=== PATIENT | female | born 1940 | race Caucasian/White ===

== ENCOUNTER 2019-07-31 10:04 | Outpatient (CLI) | payer MEDICARE, SELFPAY ==
[2019-07-31 10:20] LABS: Hemoglobin 13.4 g/dL (11.7-13.8); Mean Corpuscular HGB Conc 32.7 g/dL (32.0-36.0); Mean Corpuscular Hemoglobin 30.5 pg (27.0-31.0); Mean Corpuscular Volume 93.4 fL (78.0-102.0); Mean Platelet Volume 9.1 fl (9.2-11.8); Platelet Count Result 174 K/mm3 (150-420); Red Blood Count 4.39 M/mm3 (4.20-5.40); Red Cell Distribution Width 12.5 % (11.6-14.4); White Blood Count 6.5 K/mm3 (4.8-10.8)
[2019-07-31 11:12] LABS: Alanine Aminotransferase 25 U/L (14-59); Alkaline Phosphatase 63 U/L (46-116); Anion Gap 12.3 mmol/L (7-16); Aspartate Amino Transferase 20 U/L (15-37); Bilirubin,Total 0.4 mg/dL (0.00-1.00); Blood Urea Nitrogen 17 mg/dL (7-18); Calcium 8.9 mg/dL (8.5-10.1); Carbon Dioxide 29 mmol/L (21-32); Chloride 107 mmol/L (98-108); Estimated Glomerular Filt Rate 57; Glucose 118 mg/dL (70-99); Osmolality Calculated 300 mOsm/kg (285-295); Potassium 4.3 mmol/L (3.5-5.1); Sodium 144 mmol/L (136-145); Total Protein 6.8 g/dL (6.4-8.2)
== END 2019-07-31 10:05 | disposition home or self-care (01) ==
LOC: CHSLAB 10:08
PROVIDERS: PCP Family Medicine; Visit Provider Family Medicine
DX: I25.10 Atherosclerotic heart disease of native coronary artery without angina pectoris (principal); I10 Essential (primary) hypertension; E78.5 Hyperlipidemia, unspecified
CPT/HCPCS: 36415; 80053; 84443; 85027

== ENCOUNTER 2019-10-10 13:54 | Outpatient (CLI) | payer MEDICARE, SELFPAY ==
[2019-10-10 14:56] LABS: Thyroid Stimulating Hormone Reflex 0.19 u/IU/mL (0.36-3.74)
[2019-10-10 15:41] LABS: Free T4 Free Thyroxine Reflex 1.39 ng/dL (0.76-1.46)
== END 2019-10-10 13:55 | disposition home or self-care (01) ==
LOC: CHSLAB 13:56
PROVIDERS: PCP Family Medicine; Visit Provider Family Medicine
DX: E78.5 Hyperlipidemia, unspecified (principal)
CPT/HCPCS: 36415; 84439; 84443

== ENCOUNTER 2020-02-11 14:15 | Outpatient (CLI) | payer MEDICARE, OTHER, SELFPAY ==
--- NOTE | ~2020-02-11 | MM_ITS ---
EXAMINATION: MM screening [facility] BI w frank HISTORY: Screening mammogram TECHNIQUE: Craniocaudal and mediolateral oblique 3-D tomosynthesis images were obtained and synthetic 2-D images were generated. CAD analysis was submitted and interpreted. COMPARISON: 02/06/2019 bilateral digital screening mammogram 01/25/2018 bilateral diagnostic digital mammogram, left breast targeted ultrasound 07/10/2016 bilateral digital screening mammogram BREAST PARENCHYMAL COMPOSITION: There are scattered areas of fibroglandular density. FINDINGS: There is an ill-defined asymmetric density in the mid to lower outer left breast. Diagnosti c left mammogram is recommended, with ultrasound if required. Otherwise there is no evidence of suspicious mass, calcification, or architectural distortion to sugg est malignancy in either breast. There has been no other suspicious interval change. IMPRESSION: 1. Ill-defined asymmetric density in the mid to lower outer left breast 2. Diagnostic left mammogram and left breast ultrasound examination are recommended BI-RADS Category 0: Incomplete: Needs additional imaging evaluation. Reviewed, dictated and finalized at location A. IMPRESSION: 1. Ill-defined asymmetric density in the mid to lower outer left breast 2. Diagnostic left mammogram and left breast ultrasound examination are recomme nded BI-RADS Category 0: Incomplete: Needs additional imaging evaluation.
== END 2020-02-11 14:16 | disposition home or self-care (01) ==
LOC: CHSIMG 14:17
PROVIDERS: PCP Family Medicine; Visit Provider Family Medicine
DX: Z12.31 Encounter for screening mammogram for malignant neoplasm of breast (principal)
CPT/HCPCS: 77063; 77067

== ENCOUNTER 2020-02-17 08:59 | Outpatient (CLI) | payer MEDICARE, OTHER, SELFPAY ==
--- NOTE | ~2020-02-17 | MM_ITS ---
EXAMINATION: MM diagnostic [facility] LT w frank HISTORY: Left breast asymmetry on screening mammogram TECHNIQUE: Additional 3-D tomosynthesis images of the left breast were performed and synthetic 2-D im ages were generated. CAD analysis was submitted and interpreted. COMPARISON: 02/11/2020, 02/06/2019, 02/04/2018,07/10/2016 FINDINGS: Focal asymmetry of the left breast described on recent screening mammogram is demonstrated to be in the skin and corresponds to an area of scarring related to prior cyst/infection of the skin. There is no evidence of suspicious mass, calcification, or architectural distortion to suggest dada gnancy. There has been no suspicious interval change. IMPRESSION: 1. No mammographic evidence of malignancy. 2. Recommend routine screening mammography in one year. BI-RADS Category 2: Benign finding(s). Reviewed, dictated and finalized at location A.
== END 2020-02-17 09:00 | disposition home or self-care (01) ==
LOC: CHSIMG 09:01
PROVIDERS: PCP Family Medicine; Visit Provider Family Medicine
DX: R92.8 Other abnormal and inconclusive findings on diagnostic imaging of breast (principal)
CPT/HCPCS: 77061; 77065; G0279

== ENCOUNTER 2020-02-18 13:50 | Outpatient (CLI) | payer MEDICARE, SELFPAY ==
[2020-02-18 14:55] LABS: Free T4 Free Thyroxine 1.06 ng/dL (0.76-1.46); Thyroid Stimulating Hormone 3.26 uIU/mL (0.36-3.74)
== END 2020-02-18 13:51 | disposition home or self-care (01) ==
LOC: CHSLAB 13:53
PROVIDERS: PCP Family Medicine; Visit Provider Family Medicine
DX: E03.9 Hypothyroidism, unspecified (principal)
CPT/HCPCS: 36415; 84439; 84443

== ENCOUNTER 2020-06-17 12:43 | Outpatient (RCR) | payer MEDICARE, OTHER, SELFPAY | END 2020-09-15 23:59 | disposition home or self-care (01) | LOC: ANHBWCAUD 12:43 | PROVIDERS: PCP Family Medicine; Visit Provider Family Medicine | DX: Z46.1 Encounter for fitting and adjustment of hearing aid (principal) | CPT/HCPCS: 99199; V5261 ==

== ENCOUNTER 2020-07-07 13:00 | Outpatient (RCR) | payer MEDICARE, OTHER, SELFPAY | END 2020-09-07 23:59 | disposition home or self-care (01) | LOC: CHSAUDIO 13:00 | PROVIDERS: PCP Family Medicine; Visit Provider Family Medicine | DX: H91.90 Unspecified hearing loss, unspecified ear (principal) | CPT/HCPCS: 92557; 92567 ==

== ENCOUNTER 2020-08-30 15:40 | Outpatient (CLI) | payer MEDICARE, SELFPAY ==
[2020-08-30 16:50] LABS: Thyroid Stimulating Hormone Reflex 2.72 u/IU/mL (0.36-3.74)
== END 2020-08-30 15:41 | disposition home or self-care (01) ==
LOC: CHSLAB 15:42
PROVIDERS: PCP Family Medicine; Visit Provider Family Medicine
DX: E11.9 Type 2 diabetes mellitus without complications (principal)
CPT/HCPCS: 36415; 84443

== ENCOUNTER 2020-09-28 09:27 | Outpatient (CLI) | payer MEDICARE, OTHER, SELFPAY ==
--- NOTE | ~2020-09-28 | US_ITS ---
EXAMINATION: US soft tissue head and neck DATE: 09/28/2020 11:42 INDICATION: Left submandibular mass. TECHNIQUE: Multiple grayscale and Doppler ultrasound images of the left submandibular region were obt ained. COMPARISON: None FINDINGS/IMPRESSION: 2.2 x 2.1 x 1.6 cm heterogeneously hypoechoic and vascular solid mass located within the left submand ibular gland. Differential includes both benign and malignant neoplasms and would recommend ultrasoun d-guided biopsy for pathologic correlation. Reviewed, dictated and finalized at location A.
--- NOTE | ~2020-09-28 | US_ITS ---
EXAMINATION: US carotid duplex BI DATE: 09/28/2020 11:42 INDICATION: Left carotid bruit. TECHNIQUE: Grayscale, color Doppler, and pulsed Doppler images of the cervical carotid arteries were obtained. The degree of vessel stenosis is placed in one of the following categories: normal, <50%, 5 0-69%, >=70% but less than near-occlusion, near-occlusion, or total occlusion. Note that percent sten osis relative to normal distal artery lumen diameter is indirectly measured from velocity measurement s as described by Jordan, et al. Radiology 2003; [id number]. COMPARISON: None. FINDINGS: RIGHT: The right common carotid artery (CCA) peak systolic velocity (PSV) is 95 cm/s. The right internal car otid artery (ICA) PSV is 110 cm/s. The right ICA end-diastolic velocity (EDV) is 31 cm/s. The right I CA/CCA PSV ratio is 1.2. Grayscale and color Doppler images yield an estimate of <50% diameter reduct ion from plaque in the ICA. There is antegrade flow in the right vertebral artery. LEFT: The left CCA PSV is 72 cm/s. The left ICA PSV is 190 cm/s. The left ICA EDV is 53 cm/s. The left ICA/ CCA PSV ratio is 2.6. Grayscale and color Doppler images yield an estimate of >=50% diameter reductio n from plaque in the ICA. There is antegrade flow in the left vertebral artery. IMPRESSION: 1. <50% stenosis in the right internal carotid artery. 2. 50-69% stenosis in the left internal carotid artery. Reviewed, dictated and finalized at location B.
== END 2020-09-28 09:28 | disposition home or self-care (01) ==
PROVIDERS: PCP Family Medicine
DX: R09.89 Other specified symptoms and signs involving the circulatory and respiratory systems (principal); R59.9 Enlarged lymph nodes, unspecified
CPT/HCPCS: 76536; 93880

== ENCOUNTER 2020-10-13 13:16 | Outpatient (CLI) | payer MEDICARE, OTHER, SELFPAY ==
--- NOTE | ~2020-10-13 | US_ITS ---
US FNA w image guidance DATE: 10/13/2020 16:41 INDICATION: Posterior left submandibular mass TECHNIQUE: High-resolution ultrasound imaging and color flow imaging document an approximately 1.9 x 2.7 cm solid vascular mass in the posterior left submandibular area. The purpose of procedure, technique and potential complications including bleeding were discussed wit h the patient. The patient verbalized understanding and gave consent. The skin was prepared with sterile solution. Using ultrasound guidance, fine-needle aspiration was performed at the needle using a 25-gauge needle . Aspirated fluid/tissue was immediately prepared by the pathologist. The technologist reported that ly mphocytes cells were present within the specimen tissue. The patient was very cooperative and tolerated the procedure without complaint or apparent complicati on. Manual compression was applied at the biopsy site for 20 minutes to assure hemostasis. The patient was given instructions to applying manual pressure and have a subtle return her to the em ergency room in the event that there was any postprocedure bleeding. Patient indicated understanding of the postprocedure destruction. IMPRESSION: Fine-needle aspiration of the left posterior submandibular mass with ultrasound guidance Reviewed, dictated and finalized at Location A. Reviewed, dictated and finalized at location A. IMPRESSION: Fine-needle aspiration of the left posterior submandibular mass wit h ultrasound guidance
[2020-10-13 14:14] LABS: Anion Gap 8 mmol/L (8-16); Blood Urea Nitrogen 22 mg/dL (7-18); Calcium 8.6 mg/dL (8.5-10.1); Carbon Dioxide 29 mmol/L (21-32); Chloride 105 mmol/L (98-108); Estimated Glomerular Filt Rate 48; Glucose 110 mg/dL (70-99); Osmolality Calculated 298 mOsm/kg (285-295); Potassium 4.4 mmol/L (3.5-5.1); Sodium 142 mmol/L (136-145)
== END 2020-10-13 13:17 | disposition home or self-care (01) ==
PROVIDERS: PCP Family Medicine; Visit Provider Family Medicine
DX: I25.10 Atherosclerotic heart disease of native coronary artery without angina pectoris (principal); I10 Essential (primary) hypertension; K11.9 Disease of salivary gland, unspecified
CPT/HCPCS: 10005; 36415; 80048; 88172; 88173

== ENCOUNTER 2021-02-17 12:06 | Outpatient (CLI) | payer MEDICARE, OTHER, SELFPAY ==
--- NOTE | ~2021-02-17 | MM_ITS ---
EXAMINATION: MM screening [facility] BI w frank HISTORY: Screening TECHNIQUE: Craniocaudal and mediolateral oblique 3-D tomosynthesis images were obtained and synthetic 2-D images were generated. CAD analysis was submitted and interpreted. COMPARISON: Comparison to multiple prior studies sequentially, with oldest reviewed study dated 08/2015. BREAST PARENCHYMAL COMPOSITION: There are scattered areas of fibroglandular density. FINDINGS: There is no evidence of suspicious mass, calcification, or architectural distortion to sugg est malignancy in either breast. There has been no suspicious interval change. IMPRESSION: 1. No mammographic evidence of malignancy. 2. Recommend routine screening mammography in one year. BI-RADS Category 1: Negative Reviewed, dictated and finalized at location A.
== END 2021-02-17 12:07 | disposition home or self-care (01) ==
LOC: CHSIMG 12:07
PROVIDERS: PCP Family Medicine; Visit Provider Family Medicine
DX: Z12.31 Encounter for screening mammogram for malignant neoplasm of breast (principal)
CPT/HCPCS: 77063; 77067

== ENCOUNTER 2021-05-23 09:46 | Outpatient (CLI) | payer MEDICARE, OTHER, SELFPAY ==
--- NOTE | ~2021-05-23 | US_ITS ---
EXAMINATION: US soft tissue head and neck DATE: 05/23/2021 10:00 INDICATION: Left submandibular gland mass. TECHNIQUE: Multiple grayscale and Doppler ultrasound images of the neck were obtained. COMPARISON: Ultrasound 10/13/2020, 09/28/2020 FINDINGS: There is a 2.4 x 1.7 x 1.9 cm hypoechoic mass in the left submandibular gland. IMPRESSION: 1. 2.4 cm mass in the left submandibular gland, stable from 09/28/2020. Fine-needle aspiration on 10/13 was suspicious for Warthin tumor. Reviewed, dictated and finalized at location A. ER HELPER IMPRESSION: 1. 2.4 cm mass in the left submandibular gland, stable from 09/28/2020. Fine-nee dle aspiration on 10/13/2020 was suspicious for Warthin tumor.
== END 2021-05-23 09:47 | disposition home or self-care (01) ==
LOC: CHSIMG 09:47
PROVIDERS: PCP Family Medicine; Visit Provider Internal Medicine Hematology & Oncology
DX: D49.0 Neoplasm of unspecified behavior of digestive system (principal)
CPT/HCPCS: 76536

== ENCOUNTER 2021-09-15 09:35 | Outpatient (CLI) | payer MEDICARE, SELFPAY ==
[2021-09-15 10:35] LABS: Free T4 Free Thyroxine 1.02 ng/dL (0.76-1.46); Thyroid Stimulating Hormone 2.33 uIU/mL (0.36-3.74)
== END 2021-09-15 09:36 | disposition home or self-care (01) ==
LOC: CHSLAB 09:37
PROVIDERS: PCP Family Medicine; Visit Provider Nurse Practitioner Family
DX: E03.9 Hypothyroidism, unspecified (principal)
CPT/HCPCS: 36415; 84439; 84443

== ENCOUNTER 2021-10-12 09:39 | Outpatient (CLI) | payer MEDICARE, SELFPAY ==
[2021-10-12 09:51] LABS: Add Urine Microscopic? YES; Appearance Urine Clear (Clear); Bilirubin Urine Negative (Negative); Blood Urine 3+ (Negative); Color Urine Light Yellow (Yellow); Glucose Urine UA Negative (Negative); Ketones Urine Negative (Negative); Leukocyte Esterase Ur 1+ LEU/UL (Negative); Nitrate Urine Negative (Negative); Protein Urine Negative (Negative); Urobilinogen Urine 0.2 mg/dL (0.2-1.0); pH Urine 5.5 (5.0-8.0)
[2021-10-12 09:59] LABS: Bacteria Urine Trace /hpf; Squamous Epithelial Cell Urine Rare /hpf (Few)
== END 2021-10-12 09:40 | disposition home or self-care (01) ==
LOC: CHSLAB 09:41
PROVIDERS: PCP Family Medicine; Visit Provider Family Medicine
DX: R30.0 Dysuria (principal)
CPT/HCPCS: 81001; 87077; 87086; 87088; 87186

== ENCOUNTER 2021-10-16 15:19 | Emergency (ER) | payer MEDICARE, OTHER, SELFPAY ==
[2021-10-16 15:43] VITALS: BP 150/67; PULSE 62; RESP 20; TEMP 36.4; O2SAT 97
--- NOTE | 2021-10-16 15:45 | ED.EAR ---
HPI - Ear Problem General Chief complaint: Ear Stated complaint: hearing aid piece stuck in ear Time Seen by Provider: 10/16/21 15:22 Source: patient and RN notes reviewed Mode of arrival: ambulatory Limitations: no limitations History of Present Illness Complaint: foreign body Location: left ear Duration: constant Severity: mild Relieving factors: nothing Exacerbating factors: nothing Discharge from ear: Reports no Associated symptoms ear: decreased hearing Treatment prior to arrival: none Related Data Home Medications Medication Instructions Recorded Confirmed aspirin 81 mg tablet,delayed 81 mg PO DAILY 07/17/19 09/15/21 release (Adult Low Dose Aspirin) cholecalciferol (vitamin D3) 25 25 mcg PO DAILY 07/17/19 09/15/21 mcg (1,000 unit) capsule Allergies Allergy/AdvReac Type Severity Reaction Status Date / Time Sulfonamides Allergy Intermediate Unknown Uncoded 09/15/21 09:29 Review of Systems Review of Systems: All systems reviewed & are unremarkable except as noted in HPI and below PMFSH Past Medical History Medical History (Updated 10/16/21 @ 15:57 by Milan Corrales MD) CAD (coronary artery disease) Diverticulosis Foreign body of ear, left Hyperlipidemia Hypertension Hypothyroidism Myocardial infarction 2002. Stent placed. 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 Exam Const: General: healthy appearing, no acute distress and alert Nutritional Appearance: well nourished Orientation/consciousness: patient oriented x3 Limitations: no limitations HENMT: Head: normal to inspection Ears: external ears normal, TM's normal bilaterally and Abnormal EAC present (left ear canal FB which was easily removed with an alligator forceps ) foreign body General nose exam: Normal external nose present and Normal nares present Face and sinus: normal facial exam and sinuses nontender Mouth: Yes Normal oral and palatal mucosa present, Yes lip normal and Yes moist mucous membranes Teeth and gingiva: dentition normal Throat: posterior oropharynx normal Eyes: Conjunctivae: conjunctivae normal Pupils: Equal, round and reactive pupils present EOM: EOMs intact bilaterally Neck: Neck: normal visual inspection and no lymphadenopathy Chest: Chest palpation & inspection: normal inspection of the chest Resp: Effort & Inspection: normal respiratory effort Auscultation: clear to auscultation bilaterally Cardio: Rate: regular rate Rhythm: regular rhythm GI: Auscultation: normal bowel sounds : General: Yes bladder normal to palpation and Yes no CVA tenderness Back/Spine/Pelvis: Back: no CVA tenderness Skin: General skin exam: normal color Rashes: no rashes Wounds: no wounds Neuro: General: patient oriented x3, moves all extremities, no meningeal signs, no focal motor deficits and CN's II-XI intact bilaterally Cranial nerves: Yes Nystagmus not present Speech: normal speech Gait exam (Neuro): Normal gait present Extrem: General: normal to inspection, no clubbing, cyanosis or edema and no pedal edema Psych: Mental Status: mental status grossly normal Affect: normal affect Attitude: cooperative Course Course Emergency Course: Pt was stable in the ED. Reevaluation(s) Reevaluation #1: VSS Date: 10/16/21 Time: 15:31 Vital Signs Vital signs: Vital Signs Temperature 36.4 C 10/16/21 15:43 Pulse Rate 62 10/16
[2021-10-16 16:02] VITALS: PULSE 63; RESP 20; O2SAT 98
== END 2021-10-16 16:04 | disposition home or self-care (01) ==
PROVIDERS: Emergency Provider Emergency Medicine; PCP Family Medicine
DX: T16.2XXA Foreign body in left ear, initial encounter (principal)
CPT/HCPCS: 99282

== ENCOUNTER 2021-11-04 15:33 | Outpatient (CLI) | payer MEDICARE, OTHER, SELFPAY ==
--- NOTE | ~2021-11-04 | US_ITS ---
EXAMINATION: US soft tissue head and neck DATE: 11/04/2021 16:30 INDICATION: Left neck mass. TECHNIQUE: Multiple grayscale and Doppler ultrasound images of the head and neck were obtained. COMPARISON: Ultrasound 05/23/2021 FINDINGS: There is a 3.7 x 1.7 x 2.1 cm hypoechoic mass in a major salivary gland in left neck. IMPRESSION: 1. 3.7 cm mass in a major salivary gland in left neck, increased from 2.4 cm on 05/23/2021. It is not c lear from the images if this is the parotid gland or submandibular gland. Fine-needle aspiration on was suspicious for Warthin tumor. Reviewed, dictated and finalized at location B. IMPRESSION: 1. 3.7 cm mass in a major salivary gland in left neck, increased from 2.4 cm on 05/23/2021. It is not clear from the images if this is the parotid gland or subm andibular gland. Fine-needle aspiration on 10/13/2020 was suspicious for Warthin tumor.
== END 2021-11-04 15:34 | disposition home or self-care (01) ==
LOC: ANHIMG 15:35
PROVIDERS: PCP Family Medicine; Visit Provider Internal Medicine Hematology & Oncology
DX: D49.0 Neoplasm of unspecified behavior of digestive system (principal); K11.8 Other diseases of salivary glands
CPT/HCPCS: 76536

== ENCOUNTER 2022-02-01 12:06 | Outpatient (CLI) | payer MEDICARE, OTHER, SELFPAY ==
--- NOTE | ~2022-02-01 | US_ITS ---
EXAMINATION: US soft tissue head and neck DATE: 02/01/2022 13:02 INDICATION: Salivary gland tumor. TECHNIQUE: Multiple grayscale and Doppler ultrasound images of the head and neck were obtained. COMPARISON: Ultrasound 11/04/2021 FINDINGS: There is a 3.7 x 2.1 x 2.0 cm hypoechoic mass in a major salivary gland in left neck. IMPRESSION: 1. 3.7 cm mass in a major salivary gland in left neck, most likely the parotid gland, stable from 10/19. Fine-needle aspiration on 10/13/2020 was suspicious for Warthin tumor. Reviewed, dictated and finalized at location A. IMPRESSION: 1. 3.7 cm mass in a major salivary gland in left neck, most likely the parotid gland, stable from 11/04/2021. Fine-needle aspiration on 10/13/2020 was suspiciou s for Warthin tumor.
== END 2022-02-01 12:07 | disposition home or self-care (01) ==
LOC: CHSIMG 12:08
PROVIDERS: PCP Family Medicine; Visit Provider Internal Medicine Hematology & Oncology
DX: D49.0 Neoplasm of unspecified behavior of digestive system (principal)
CPT/HCPCS: 76536

== ENCOUNTER 2022-02-22 08:46 | Outpatient (CLI) | payer MEDICARE, OTHER, SELFPAY ==
--- NOTE | ~2022-02-22 | MM_ITS ---
EXAMINATION: MM screening [facility] BI w frank HISTORY: Screening mammogram TECHNIQUE: Craniocaudal and mediolateral oblique 3-D tomosynthesis images were obtained and synthetic 2-D images were generated. CAD analysis was submitted and interpreted. COMPARISON: 02/17/2021, 02/17/2020, 02/11/2020 BREAST PARENCHYMAL COMPOSITION: There are scattered areas of fibroglandular density. FINDINGS: No suspicious mass, calcification, or architectural distortion are identified in either hailee ast to suggest malignancy. There has been no suspicious interval change. IMPRESSION: 1. No mammographic evidence of malignancy. 2. Recommend routine screening mammography while the patient remains in good health. BI-RADS Category 1: Negative Reviewed, dictated and finalized at location A. IMPRESSION: 1. No mammographic evidence of malignancy. 2. Recommend routine screening mammography while the patient remains in good he alth. BI-RADS Category 1: Negative
== END 2022-02-22 08:47 | disposition home or self-care (01) ==
LOC: CHSIMG 08:48
PROVIDERS: PCP Family Medicine; Visit Provider Family Medicine
DX: Z12.31 Encounter for screening mammogram for malignant neoplasm of breast (principal)
CPT/HCPCS: 77063; 77067

== ENCOUNTER 2022-05-30 10:08 | Outpatient (CLI) | payer MEDICARE, OTHER, SELFPAY ==
--- NOTE | ~2022-05-30 | US_ITS ---
EXAMINATION: US soft tissue head and neck DATE: 05/30/2022 10:27 INDICATION: Salivary gland tumor. TECHNIQUE: Multiple grayscale and Doppler ultrasound images of the head and neck were obtained. COMPARISON: Ultrasound 02/01/2022 FINDINGS: There is a 2.1 x 2.5 x 2.0 cm hypoechoic mass in a major salivary gland in left neck. IMPRESSION: 1. 2.5 cm mass in a major salivary gland in left neck, most likely the parotid gland, improved from 3 .7 cm on 02/01/2022. Fine-needle aspiration on 10/13/2020 was suspicious for Warthin tumor. Reviewed, dictated and finalized at location A. 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 2.5 cm mass in a major salivary gland in left neck, most likely the parotid gland, improved from 3.7 cm on 02/01/2022. Fine-needle aspiration on 10/13/2020 w as suspicious for Warthin tumor.
== END 2022-05-30 10:09 | disposition home or self-care (01) ==
LOC: CHSIMG 10:10
PROVIDERS: PCP Family Medicine; Visit Provider Internal Medicine Hematology & Oncology
DX: K11.8 Other diseases of salivary glands (principal)
CPT/HCPCS: 76536

== ENCOUNTER 2022-05-31 07:48 | Outpatient (CLI) | payer MEDICARE, OTHER, SELFPAY | END 2022-05-31 07:49 | disposition home or self-care (01) | LOC: CHSAUDIO 07:50 | PROVIDERS: PCP Family Medicine; Visit Provider Family Medicine | DX: H90.3 Sensorineural hearing loss, bilateral (principal) | CPT/HCPCS: 92557; 92567 ==

== ENCOUNTER 2022-08-07 08:26 | Outpatient (RCR) | payer MEDICARE, OTHER, SELFPAY | END 2022-11-05 23:59 | disposition home or self-care (01) | LOC: CHSAUDIO 08:26 | PROVIDERS: PCP Family Medicine; Visit Provider Family Medicine | DX: Z46.1 Encounter for fitting and adjustment of hearing aid (principal) | CPT/HCPCS: 99199 ==

== ENCOUNTER 2022-09-26 14:42 | Outpatient (CLI) | payer MEDICARE, SELFPAY ==
[2022-09-26 15:01] LABS: Appearance Urine Clear (Clear); Bilirubin Urine Negative (Negative); Blood Urine 1+ (Negative); Color Urine Light Yellow (Yellow); Glucose Urine UA Negative (Negative); Ketones Urine Negative (Negative); Leukocyte Esterase Ur Negative LEU/UL (Negative); Nitrate Urine Negative (Negative); Protein Urine Trace (Negative); Specific Grav Ur 1.025 (1.010-1.020); Urobilinogen Urine 0.2 mg/dL (0.2-1.0)
[2022-09-26 15:05] LABS: Add Urine Microscopic? YES
[2022-09-26 15:06] LABS: Bacteria Urine Trace /hpf; Squamous Epithelial Cell Urine Few /hpf (Few); WBC Urine None seen /hpf (0-3)
== END 2022-09-26 14:43 | disposition home or self-care (01) ==
LOC: CHSLAB 14:43
PROVIDERS: PCP Nurse Practitioner Family; Visit Provider Nurse Practitioner Family
DX: R30.0 Dysuria (principal)
CPT/HCPCS: 81001

== ENCOUNTER 2022-11-22 11:17 | Outpatient (CLI) | payer MEDICARE, SELFPAY ==
[2022-11-22 11:44] LABS: Basophils Absolute Auto 0.03 K/mm3 (0.00-0.10); Basophils Percent Auto 0.5 % (0.0-1.0); Eosinophils Absolute Auto 0.12 K/mm3 (0.02-0.50); Eosinophils Percent Auto 1.8 % (1.0-6.0); Immature Granulocyte Absolute 0.04 K/mm3 (0.00-0.00); Immature Granulocyte Percent A 0.6 % (0.0-0.0); Lymphocytes Absolute Auto 0.96 K/mm3 (1.10-4.50); Lymphocytes Percent Auto 14.7 % (18.0-42.0); Mean Corpuscular HGB Conc 31.4 g/dL (32.0-36.0); Mean Corpuscular Hemoglobin 31.4 pg (27.0-31.0); Mean Platelet Volume 8.7 fl (9.2-11.8); Monocytes Absolute Auto 0.38 K/mm3 (0.10-0.90); Monocytes Percent Auto 5.8 % (2.0-11.0); Neutrophils Percent Auto 76.6 % (50.0-70.0); Platelet Count Result 196 K/mm3 (150-420); Red Blood Count 1.94 M/mm3 (4.20-5.40); Red Cell Distribution Width 14.6 % (11.6-14.4); White Blood Count 6.5 K/mm3 (4.8-10.8)
[2022-11-22 11:46] LABS: Hematocrit 19.4 % (35.0-42.0); Hemoglobin 6.1 g/dL (11.7-13.8)
[2022-11-22 12:38] LABS: Alanine Aminotransferase 40 U/L (14-59); Albumin Level 3.5 g/dL (3.4-5.0); Alkaline Phosphatase 52 U/L (46-116); Anion Gap 10 mmol/L (8-16); Aspartate Amino Transferase 31 U/L (15-37); Bilirubin,Total 0.3 mg/dL (0.00-1.00); Blood Urea Nitrogen 31 mg/dL (7-18); Calcium 8.5 mg/dL (8.5-10.1); Carbon Dioxide 26 mmol/L (21-32); Chloride 104 mmol/L (98-108); Estimated Glomerular Filt Rate 53; Glucose 126 mg/dL (70-99); Osmolality Calculated 298 mOsm/kg (285-295); Potassium 4.2 mmol/L (3.5-5.1); Sodium 140 mmol/L (136-145); Total Protein 5.9 g/dL (6.4-8.2)
[2022-11-22 12:39] LABS: Thyroid Stimulating Hormone Reflex 3.08 u/IU/mL (0.36-3.74)
== END 2022-11-22 11:18 | disposition home or self-care (01) ==
LOC: CHSLAB 11:18
PROVIDERS: PCP Family Medicine; Visit Provider Family Medicine
DX: E11.9 Type 2 diabetes mellitus without complications (principal); R42 Dizziness and giddiness
CPT/HCPCS: 36415; 80053; 84443; 85025

== ENCOUNTER 2022-11-22 14:23 | Emergency (ER) | payer MEDICARE, OTHER, SELFPAY ==
[2022-11-22] VITALS (34 sets, daily range): BP systolic 105–142; BP diastolic 42–99; PULSE 63–81; RESP 10–25; TEMP 36.7–36.9; O2SAT 96–100
--- NOTE | 2022-11-22 14:39 | ED.WEAKNESS ---
HPI - Weakness General Chief complaint: Dizziness Stated complaint: low blood count; sent by Dr. 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 No paroxysmal nocturnal dyspnea or dyspnea at rest -- had 1 episode of black stool 1 week ago. Subsequently she has normal colored stools. No hematemesis. Patient went to her primary care's physician's office and was noted to have -- microcytic hypochromic anemia with an H&H of 6.1/19.4. she is sent to the ER for blood transfusion. MD Complaint: generalized weakness and lack of energy Onset (ago): month(s) Duration: constant Location: generalized Migration: none Severity: mild Relieving factors: none Exacerbating factors: none Associated symptoms: denies other symptoms, dark stools and shortness of breath Related Data Home Medications Medication Instructions Recorded Confirmed aspirin 81 mg tablet,delayed 81 mg PO DAILY 07/17/19 11/22/22 release (Adult Low Dose Aspirin) cholecalciferol (vitamin D3) 25 25 mcg PO DAILY 07/17/19 11/22/22 mcg (1,000 unit) capsule amoxicillin 875 mg-potassium 1 tablet PO BID 11/22/22 11/22/22 clavulanate 125 mg tablet Allergies Allergy/AdvReac Type Severity Reaction Status Date / Time Sulfonamides Allergy Intermediate Nausea and Uncoded 11/22/22 08:14 Vomiting Review of Systems Review of Systems: All systems reviewed & are unremarkable except as noted in HPI and below Constitutional: Constitutional: Reports as per HPI, Reports no additional constitutional complaints and Reports weakness Eyes: Eyes: Reports as per HPI and Reports no additional eye complaints ENT: Reports system reviewed and no additional complaints, except as documented and Reports as per HPI Comments: Left submandibular swelling measuring 2 cmX3 cm Cardiovascular: Cardiovascular: Reports as per HPI and Reports no additional cardiovascular complaints Respiratory: Respiratory: Reports as per HPI, Reports no additional respiratory complaints and Reports dyspnea Comments: dyspnea on exertion Gastrointestinal: Gastrointestinal: Reports as per HPI and Reports no additional gastrointestinal complaints Genitourinary: Genitourinary: Reports no additional female genitourinary complaints and Reports as per HPI Musculoskeletal: Musculoskeletal: Reports no additional musculoskeletal complaints and Reports as per HPI Integumentary/Breasts: Skin/Breast: Reports system reviewed and no additional complaints, except as docu and Reports as per HPI Neurologic: Reports system reviewed and no additional complaints, except as documented and Reports as per HPI Psychiatric: Psychiatric: Reports no additional psychiatric complaints and Reports as per HPI Endocrine: Endocrine: Reports no additional endocrine complaints and Reports as per HPI Hematologic/Lymphatic: Hematologic/Lymphatic: Reports no additional hematologic/lymphatic complaints and Reports as per HPI Allergic/Immunologic: Allergic/Immunologic: Reports no additional allergic/immunologic complaints and Reports as per HPI [facility] Past Medical History Medical History CAD (coronary artery disease) Diverticulosis Encounter for vaccination Foreign body of ear, left Hyperlipidemia Hypertension Hypothyroidism Myocardial infarction 2002. Stent placed. Submandibular gland mass Surgical History Surgical History (Reviewed 11/22/22 @
--- NOTE | 2022-11-22 15:12 | ECG_ITS ---
Measurements Intervals [place] Rate: 66 P: 27 NC: 219 QRS: -10 QRSD: 83 T: 49 QT: 404 QTc: 425 Interpretive Statements SINUS RHYTHM WITH FIRST DEGREE AV BLOCK BORDERLINE ST-T WAVE ABNORMALITY- HIGH LATERAL LEADS BASELINE ARTIFACT- I, II, III, AVR, AVL, AVF, V1, V3-V4 BORDERLINE ECG NO PREVIOUS ECG AVAILABLE FOR COMPARISON Electronically Signed On 11-22-2022 15:31:57 CDT by Kirill Medellin D.O.
[2022-11-22 15:23] LABS: Occult Blood Positive (Negative)
[2022-11-22 15:43] LABS: Immature Reticulocyte Fraction 34.6 % (2.0-16.52); Reticulocyte Hemoglobin Conten 33.4 pg (28.0-35.0); Reticulocytes Absolute 0.14 M/mm3 (0.02-0.1)
[2022-11-22 15:48] LABS: Lactate Dehydrogenase 116 U/L (81-234); NT Pro B Type Natriuretic Pept 234 pg/mL (0-450); Troponin I 5.6 ng/L (0.00-60.4)
[2022-11-22 16:00] LABS: INR 0.9; Partial Thromboplastin Time 20.6 SEC (23.90-30.70); Prothrombin Time 10.3 Seconds (9.50-12.10)
[2022-11-22 16:04] LABS: Lactic Acid Reflex 1.2 mmol/L (0.4-2.0)
[2022-11-22] MEDS: LACTATED RINGERS 1,000 ML 75 ML IV CONT (16:08)
[2022-11-22] MEDS: PANTOPRAZOLE SODIUM IV 40 MG VIAL IV PUSH (16:08)
== END 2022-11-22 18:17 | disposition short-term general hospital (02) ==
PROVIDERS: Emergency Provider Internal Medicine Critical Care Medicine; PCP Family Medicine
DX: D50.9 Iron deficiency anemia, unspecified (principal); K27.4 Chronic or unspecified peptic ulcer, site unspecified, with hemorrhage; R06.00 Dyspnea, unspecified; I10 Essential (primary) hypertension; E78.5 Hyperlipidemia, unspecified; E03.9 Hypothyroidism, unspecified; I25.10 Atherosclerotic heart disease of native coronary artery without angina pectoris; Z79.82 Long term (current) use of aspirin; I25.2 Old myocardial infarction; Z87.891 Personal history of nicotine dependence
CPT/HCPCS: 36415; 80053; 82272; 83605; 83615; 83880; 84443; 84484; 85025; 85046; 85610; 85730; 93005; 96361; 96374; 99285; C9113; J7120

== ENCOUNTER 2022-11-22 18:55 | Inpatient (IN) | payer MEDICARE, OTHER, SELFPAY ==
--- NOTE | ~2022-11-22 | XR_ITS ---
EXAMINATION: XR small bowel follow through DATE: 11/25/2022 09:05 INDICATION: Anemia. TECHNIQUE: Oral contrast was administered, and a time course of radiographs of the abdomen was obtain ed. Fluoroscopy of the small bowel was performed. Fluoroscopy exposure time was 0.2 minutes. The tota l number of images was 13. COMPARISON: CT abdomen and pelvis 08/04/2010 FINDINGS: There are no dilated loops of bowel. There is no abnormal mass or stricture. The terminal ileum is no rmal. Transit time from the stomach to proximal colon was approximately 45 minutes. IMPRESSION: 1. Normal small bowel series. Reviewed, dictated and finalized at location A.
--- NOTE | 2022-11-22 19:17 | ADMGEN ---
This patient, Gita Worthy, was admitted to 2 Medical Room 257-. Patient/family oriented to hospital policies and general routines including ID bracelet, bed and alarms, visiting hours, pain management, procedures, bathroom and other care routines, personal items, smoking policy, room service/diet, and visiting hours. Information on how to activate the Rapid Response Team has been discussed. Patient/Family are encouraged to report perceived risks to care and to ask questions if they do not understand what they are told or what they should do.
--- NOTE | 2022-11-22 19:34 | PM.IMHP ---
H&P: HPI History of Present Illness Date/Time: 11/22/22 19:34 Chief Complaint: abnormal labs Severe anemia Narrative: This is an 82-year-old lady with a past medical history including but not limited to ex-smoker, hypertension, dyslipidemia, hypothyroidism, coronary artery disease status post stent in 2002, diverticulosis, salivary? gland tumor in the left submandibular region who presents to the ER with -- generalized weakness for 3 months which has been worse over the past 2 weeks -- dizziness and lightheadedness which is worse on walking for the past week. -- dyspnea on exertion.? No paroxysmal nocturnal dyspnea or dyspnea at rest -- had 1 episode of black stool 1 week ago.? Subsequently she has normal colored stools.? No hematemesis. ? Patient went to her primary care's? physician's office and was noted to have -- microcytic hypochromic anemia with an H&H of 6.1/19.4.? She was referred to the ER for blood transfusion. On arrival to the eD, the patient is stable, afebrile with the following VS: Temp 98.4F, a HR of 69, respiration 20, saturation 99% on room air. Related Data Home Medications Medication Instructions Recorded Confirmed aspirin 81 mg tablet,delayed 81 mg PO DAILY 07/17/19 11/22/22 release (Adult Low Dose Aspirin) cholecalciferol (vitamin D3) 25 25 mcg PO DAILY 07/17/19 11/22/22 mcg (1,000 unit) capsule rosuvastatin 40 mg tablet 40 mg PO DAILY 11/22/22 11/22/22 trazodone 50 mg tablet 50 mg PO HS 11/22/22 11/22/22 Allergies Allergy/AdvReac Type Severity Reaction Status Date / Time Sulfonamides Allergy Intermediate Nausea and Uncoded 11/22/22 08:14 Vomiting Review of Systems Review of Systems: CONSTITUTIONAL: Negative for any fevers, chills, night sweats, tiredness, fatigue, malaise, anorexia or weight loss. CARDIOVASCULAR: Negative for chest pain, palpitations, dizziness, orthopnea or lower extremity edema. RESPIRATORY: Negative for shortness of breath, cough, wheezing, sputum. GASTROINTESTINAL: positive for black stools. No nausea, vomiting, diarrhea or abdominal pain. GENITOURINARY: Negative for frequency, nocturia, dysuria, hematuria. GYNECOLOGIC: Negative for abnormal bleeding. HEMATOLOGIC: Negative for any abnormal bleeding or bruising. MUSCULOSKELETAL: Negative for joint swelling, stiffness or pain. SKIN: Negative for rashes, eruptions, lesions or dryness. NEUROLOGIC: Negative for any focal neurologic complaints. PSYCHIATRIC: Negative for anxiety, panic, depression. [facility] Past Medical History Medical History CAD (coronary artery disease) Diverticulosis Encounter for vaccination Foreign body of ear, left Hyperlipidemia Hypertension Hypothyroidism Myocardial infarction 2002. Stent placed. Submandibular gland mass Surgical History Surgical History H/O heart artery stent Hx of cataract surgery Family History Family History Father Acute myocardial infarction Mother Carcinoma of colon Social History Social History Smoking packs per day: 15 Smoking cigarettes per day: 300.0 Years smoked: 40 Smoking pack-years: 600.00 Smoking status: Former smoker Additional smoking assessment comments: quit 25 years ago Alcohol intake: current Drinks per week: 2 Substance use: never Substance use type: does not use Lack of Transportation: No Lack of Food: Never True Current Housing: I Have Housing Concerned About Future Housing: No Difficulty Paying Gas/Electric Bills: No Difficulty Paying for Meds: No Currently Unemployed: No Education: Bachelor's Degree Difficulty w/ Childcare or Family Care: No Living arrangements: alone Occupation/Education: retired 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
[2022-11-22 20:02] VITALS: BMI 23.1
[2022-11-22 20:17] LABS: Hematocrit 18.3 % (37.0-47.0); Hemoglobin 5.7 g/dL (12.0-15.0)
[2022-11-22 20:45] LABS: Iron 36 ug/dL (37-170)
[2022-11-22 20:55] LABS: Percent Iron Saturation 11 % (20-50)
[2022-11-22 21:02] VITALS: BP 138/58; PULSE 67; RESP 16; TEMP 36.5; O2SAT 99
[2022-11-22 21:22] LABS: Ferritin 7.51 ng/mL (11.1-264)
[2022-11-22 21:36] LABS: Folic Acid 14.9 ng/mL (2.76->20)
[2022-11-22 21:58] VITALS: BP 140/44; PULSE 69; RESP 18; TEMP 36.3; O2SAT 98
[2022-11-22] MEDS: SODIUM CHLORIDE 0.9% IV 250 ML 30 ML IV CONT (22:00)
[2022-11-22 22:15] VITALS: BP 126/47; PULSE 60; RESP 18; TEMP 36.2; O2SAT 100
[2022-11-22] MEDS: ACETAMINOPHEN 325 MG TABLET 650 MG PO (22:21)
[2022-11-22 23:15] VITALS: BP 135/50; PULSE 58; RESP 18; TEMP 36.7; O2SAT 100
[2022-11-23] VITALS (9 sets, daily range): BP systolic 118–155; BP diastolic 46–66; PULSE 57–92; RESP 15–18; TEMP 36.4–36.6; O2SAT 97–100
[2022-11-23] MEDS: LIDOCAINE 5% PATCH 1 PATCH TRANSDERM ×2 (00:44→08:56)
[2022-11-23 05:05] LABS: Basophils Absolute Auto 0.1 K/mm3 (0.0-0.1); Basophils Percent Auto 0.8 % (0.2-1.2); Eosinophils Absolute Auto 0.1 K/mm3 (0-0.3); Eosinophils Percent Auto 1.8 % (0-4.4); Hematocrit 25.7 % (37.0-47.0); Hemoglobin 8.2 g/dL (12.0-15.0); Immature Granulocyte Absolute 0.03 K/mm3 (0.00-0.031); Immature Granulocyte Percent A 0.5 % (0-0.5); Lymphocytes Absolute Auto 1.16 K/mm3 (0.9-3.2); Mean Corpuscular HGB Conc 31.9 g/dl (32-36); Mean Corpuscular Hemoglobin 29.5 pg (26-34); Mean Corpuscular Volume 92.4 fl (80-100); Mean Platelet Volume 9.4 fl (7.4-10.4); Monocytes Absolute Auto 0.5 K/mm3 (0.1-0.6); Monocytes Percent Auto 7.6 % (2.6-8.5); Neutrophils Absolute Auto 4.3 K/mm3 (1.3-6.7); Neutrophils Percent Auto 70.3 % (45.5-73.1); Platelet Count Result 164 k/mm3 (150-375); Red Blood Count 2.78 M/mm3 (4.2-5.4); Red Cell Distribution Width 15.6 % (11.5-14.5); White Blood Count 6.1 K/mm3 (4.5-10.0)
[2022-11-23 06:06] LABS: Anion Gap 4 mmol/L (8-16); Blood Urea Nitrogen 25 mg/dL (7-17); Calcium 8.3 mg/dL (8.4-10.2); Carbon Dioxide 25 mmol/L (22-30); Chloride 109 mmol/L (98-107); Estimated CRCL calculation 32 ml/min; Estimated Glomerular Filt Rate 60; Glucose 98 mg/dL (65-110); Potassium 3.8 mmol/L (3.4-5.0); Sodium 138 mmol/L (137-145)
--- NOTE | 2022-11-23 09:50 | PM.IMPN ---
Progress Note: A&P Assessment and Plan (1) GI bleed: Qualifiers: GI bleed type/associated pathology: unspecified peptic ulcer Qualified Code(s): K27.4 - Chronic or unspecified peptic ulcer, site unspecified, with hemorrhage Code(s): K92.2 - Gastrointestinal hemorrhage, unspecified Status: Acute Assessment and Plan: Patient has noted black stools at home found to significant anemia requiring transfusion GI has been consulted plans to do EGD colonoscopy tomorrow. Patient has history of diverticulosis no abdominal pain in no fever to indicate active diverticulitis. (2) Hypochromic microcytic anemia: Code(s): D50.9 - Iron deficiency anemia, unspecified Status: Inactive Assessment and Plan: Acute on chronic related to GI bleeding (3) Family history of colon cancer in mother: Code(s): Z80.0 - Family history of malignant neoplasm of digestive organs Status: Acute Assessment and Plan: GI consult with plan for colonoscopy an EGD tomorrow. (4) Hypothyroidism: Code(s): E03.9 - Hypothyroidism, unspecified Status: Acute Assessment and Plan: Continue home medications (5) Hypertension: Code(s): I10 - Essential (primary) hypertension Status: Acute Assessment and Plan: Diastolic BP low, held at this time. (6) Hyperlipidemia: Code(s): E78.5 - Hyperlipidemia, unspecified Status: Acute Assessment and Plan: Continue home medications. (7) CAD (coronary artery disease): Code(s): I25.10 - Atherosclerotic heart disease of [place] coronary artery without angina pectoris Status: Acute Assessment and Plan: Stable no complaints chest pain or difficulty breathing. Time Spent With Patient Time with patient: 25 - 35 minutes Subjective Date/time seen: 11/23/22 09:50 Interval history: This is an 82-year-old female patient who was admitted on a for generalized weakness, dizziness, lightheadedness, dyspnea on exertion, black stools and findings of significant anemia with an H&H of 5.7 and 18.3 in outpatient clinic. Patient received blood transfusion 2 units and admitted overnight to the hospital pending GI consult this morning. Patient reports that she feels well after transfusion no reactions no fevers no chills. Patient denies any nausea vomiting. She denies any abdominal pain. Review of Systems Review of Systems: All systems reviewed & are unremarkable except as noted in HPI and below Exam Narrative: GENERAL: Generally well appearing, alert and oriented, in no apparent distress. She is pleasant and conversant in full sentences. HEENT: Pupils are equally round and briskly reactive to light. Extraocular muscles are intact. Oral mucous membranes are moist without lesions. NECK: The patient has no noted JVD. No adenopathy is appreciated. CHEST/LUNGS: Lungs are clear bilaterally without rhonchi, rales, or wheezes. There is no subcutaneous air appreciated. There is no tenderness to the chest wall. HEART: The patient has a regular rate and rhythm. No murmurs, rubs, or gallops are appreciated. Distal pulses are 2+. No carotid bruits appreciated. ABDOMEN: The patient?s abdomen is? soft, nontender, and nondistended. Bowel sounds are positive. No organomegaly is appreciated. No masses are appreciated. There are no peritoneal signs. There is no Mueller?s sign. EXTREMITIES: The patient has no peripheral edema. There is no focal long bone tenderness or deformity. SKIN: The patient?s skin is warm and dry, without rashes or lesions. PSYCHIATRIC: The patient has normal mental status and has an appropriate affect. NEUROLOGIC:? There are no gross deficits to the cranial nerves. Patient ambulates with steady gait. ? Objective Data Vital Signs Vital Signs: Vital Signs - 24 hr 11/22/22 21:02 11/22/22 21:58 11/22/22 20:00 Temperature 36.5 C 36.3 C L Pulse Rate 67 69 Respiratory Rate 16 18 Blood Pressure 138/58 L 1
--- NOTE | 2022-11-23 13:13 | WPDGICN ---
Assessment and Plan Assessment and plan (1) Anemia: Code(s): D64.9 - Anemia, unspecified Status: Acute Assessment and Plan: Patient admitted with anemia. She feels much improved after transfusion. Patient does report several days of black stools which per temperature early represent GI blood loss. Plan to evaluate with both colonoscopy an EGD. Stool Hemoccult was found to be positive. No other source of anemia identified. (2) Occult blood in stools: Code(s): R19.5 - Other fecal abnormalities Status: Acute Assessment and Plan: Patient confirmed to have occult blood in stools after admission to the hospital. Suggesting non GI bleeding. History of dark stools raises the question of upper GI blood loss. Plan for both colonoscopy an EGD to evaluate more thoroughly. (3) Family history of colon cancer in mother: Code(s): Z80.0 - Family history of malignant neoplasm of digestive organs Status: Acute Assessment and Plan: Patient's mother has had colon cancer. Screening colonoscopy not recently performed however Cologuard test 1 year ago reported to be normal. GI Consult Note Consult date/time: 11/23/22 13:13 Reason for consult: Anemia HPI: Gita Worthy is a 82 year old female I am asked to see at the request of the hospitalist service because of anemia. Patient reports that she recently was treated for sinus infection. She went to see her primary care doctor lab work revealed that she had significant anemia. For this reason patient admitted to the hospital for workup and transfusion. She feels much improved after transfusion of several units of packed red blood cells. Patient reports having black stool for several days ago several weeks ago. She denies any abdominal pain. Stool Hemoccult after admission has been confirmed to be occult blood positive. Patient denies any obvious red blood. She has had no significant pain. Patient has no prior history of ulcer disease. Her family history is significant that her mother had colon cancer. Patient reports a Cologuard test 1 year ago that was negative. Review of Systems Review of Systems: Review of systems noncontributory. [facility] Past Medical History Medical History CAD (coronary artery disease) Diverticulosis Encounter for vaccination Foreign body of ear, left Hyperlipidemia Hypertension Hypothyroidism Myocardial infarction 2002. Stent placed. Submandibular gland mass Surgical History Surgical History H/O heart artery stent Hx of cataract surgery Family History Family History Father Acute myocardial infarction Mother Carcinoma of colon Social History Social History Smoking packs per day: 15 Smoking cigarettes per day: 300.0 Years smoked: 40 Smoking pack-years: 600.00 Smoking status: Former smoker Additional smoking assessment comments: quit 25 years ago Alcohol intake: current Drinks per week: 2 Substance use: never Substance use type: does not use Lack of Transportation: No Lack of Food: Never True Current Housing: I Have Housing Concerned About Future Housing: No Difficulty Paying Gas/Electric Bills: No Difficulty Paying for Meds: No Currently Unemployed: No Education: Bachelor's Degree Difficulty w/ Childcare or Family Care: No Living arrangements: alone Occupation/Education: retired 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
[2022-11-23] MEDS: PEG (High)/E-LYTE SOLN 4,000 ML BTL 4000 ML PO (14:03)
[2022-11-23 15:15] LABS: Hematocrit 29.6 % (37.0-47.0); Hemoglobin 9.5 g/dL (12.0-15.0)
[2022-11-23] MEDS: LEVOTHYROXINE SODIUM 50 MCG TABLET PO (17:27)
[2022-11-23] MEDS: PANTOPRAZOLE SODIUM IV 40 MG VIAL IV PUSH (21:10)
[2022-11-23] MEDS: traZODone HCL 50 MG TABLET PO (21:10)
[2022-11-24] VITALS (13 sets, daily range): BP systolic 112–181; BP diastolic 41–74; PULSE 57–70; RESP 14–23; TEMP 36.6–37.3; O2SAT 94–100
[2022-11-24 05:05] LABS: Hematocrit 23.4 % (37.0-47.0); Hemoglobin 7.6 g/dL (12.0-15.0); Mean Corpuscular HGB Conc 32.5 g/dl (32-36); Mean Corpuscular Hemoglobin 30.2 pg (26-34); Mean Corpuscular Volume 92.9 fl (80-100); Mean Platelet Volume 9.2 fl (7.4-10.4); Platelet Count Result 165 k/mm3 (150-375); Red Blood Count 2.52 M/mm3 (4.2-5.4); Red Cell Distribution Width 16.5 % (11.5-14.5); White Blood Count 5.2 K/mm3 (4.5-10.0)
[2022-11-24 05:20] LABS: Anion Gap 2 mmol/L (8-16); Blood Urea Nitrogen 23 mg/dL (7-17); Calcium 7.8 mg/dL (8.4-10.2); Carbon Dioxide 29 mmol/L (22-30); Chloride 109 mmol/L (98-107); Estimated CRCL calculation 32 ml/min; Estimated Glomerular Filt Rate 60; Glucose 88 mg/dL (65-110); Potassium 3.4 mmol/L (3.4-5.0); Sodium 140 mmol/L (137-145)
[2022-11-24] MEDS: LEVOTHYROXINE SODIUM 50 MCG TABLET PO (05:33)
[2022-11-24] MEDS: PANTOPRAZOLE SODIUM IV 40 MG VIAL IV PUSH ×2 (08:19→21:25)
[2022-11-24] MEDS: LIDOCAINE 5% PATCH 1 PATCH TRANSDERM (08:22)
--- NOTE | 2022-11-24 09:17 | PM.IMPN ---
Progress Note: A&P Assessment and Plan (1) GI bleed: Qualifiers: GI bleed type/associated pathology: unspecified peptic ulcer Qualified Code(s): K27.4 - Chronic or unspecified peptic ulcer, site unspecified, with hemorrhage Code(s): K92.2 - Gastrointestinal hemorrhage, unspecified Status: Acute Assessment and Plan: After transfusion yesterday hemoglobin up to 9.5 but overnight dropped to 7.8 with black stools. Ordered 1 unit packed red blood cells. Patient to undergo EGD and colonoscopy today (2) Family history of colon cancer in mother: Code(s): Z80.0 - Family history of malignant neoplasm of digestive organs Status: Acute Assessment and Plan: see above (3) Anemia: Code(s): D64.9 - Anemia, unspecified Status: Acute Assessment and Plan: Iron deficiency anemia related to acute GI blood loss. Managed with transfusion, source identification and iron replacement. (4) Hypothyroidism: Code(s): E03.9 - Hypothyroidism, unspecified Status: Acute (5) Hypertension: Code(s): I10 - Essential (primary) hypertension Status: Acute Assessment and Plan: Borderline diastolic blood pressure, hold antihypertensive medications at this time. (6) Hyperlipidemia: Code(s): E78.5 - Hyperlipidemia, unspecified Status: Acute Assessment and Plan: Continue home medications (7) CAD (coronary artery disease): Code(s): I25.10 - Atherosclerotic heart disease of [place] coronary artery without angina pectoris Status: Acute Assessment and Plan: Stable, no complaints of chest pain or difficulty breathing. Time Spent With Patient Time with patient: 25 - 35 minutes Subjective Date/time seen: 11/24/22 09:17 Interval history: Patient states that she fell while overnight with the exception of 0 multiple bowel movements undergoing bowel prep for EGD and colonoscopy today. Patient denies any fever chills dizziness lightheadedness nausea or vomiting. She states that her initial stools with a bowel prep were black appearing. She denies any esophagitis symptoms including belching acid taste in her mouth or indigestion. Lab assessment shows that hemoglobin dropped from 9.5 to 7.8 overnight. Given indication of active bleeding with hemoglobin less than 8, ordered 1 unit PRBC transfusion. Patient to undergo GI scope today. Review of Systems Review of Systems: All systems reviewed & are unremarkable except as noted in HPI and below Exam Narrative: GENERAL: Generally well appearing, alert and oriented, in no apparent distress. She is pleasant and conversant in full sentences. HEENT: Pupils are equally round and briskly reactive to light. Extraocular muscles are intact. Oral mucous membranes are moist without lesions. NECK: The patient has no noted JVD. No adenopathy is appreciated. CHEST/LUNGS: Lungs are clear bilaterally without rhonchi, rales, or wheezes. There is no subcutaneous air appreciated. There is no tenderness to the chest wall. HEART: The patient has a regular rate and rhythm. No murmurs, rubs, or gallops are appreciated. Distal pulses are 2+. No carotid bruits appreciated. ABDOMEN: The patient?s abdomen is? soft, nontender, and nondistended. Bowel sounds are positive. No organomegaly is appreciated. No masses are appreciated. There are no peritoneal signs. There is no Mueller?s sign. EXTREMITIES: The patient has no peripheral edema. There is no focal long bone tenderness or deformity. SKIN: The patient?s skin is warm and dry, without rashes or lesions. PSYCHIATRIC: The patient has normal mental status and has an appropriate affect. NEUROLOGIC:? There are no gross deficits to the cranial nerves.? Patient ambulates with steady gait. ? Objective Data Vital Signs Vital Signs: Vital Signs - 24 hr 11/23/22 14:00 11/23/22 19:19 11/24/22 05:25 Temperature 36.6 C 36.5 C 36.6 C Pulse Rate 62 67 62 Respiratory Rate 18 16
[2022-11-24] MEDS: LACTATED RINGERS 1,000 ML 150 ML IV CONT (12:22)
--- NOTE | 2022-11-24 12:33 | WPDANESEPPF ---
Anes - Initial Pre Proc Eval Procedure: Operation Date: 11/24/22 13:30 Proposed Procedures p Esophagogastroduodenoscopy & Colonoscopy - Apolinar Sorto MD Date/Time: 11/24/22 12:33 Surgeon: Bell Barbour MD Pre Op Diagnosis: SYMPTOMATIC,ANEMIA Patient Data Age: 82 Gender: F Height: 1.57 m Weight: 57.4 kg Last Vital Signs Temp 98.1 F 11/24/22 12:17 Pulse 62 11/24/22 12:17 Resp 16 11/24/22 12:17 BP 154/61 H 11/24/22 12:17 Pulse Ox 99 11/24/22 12:17 O2 Del Method Room Air 11/24/22 12:17 Allergies Allergy/AdvReac Type Severity Reaction Status Date / Time Sulfonamides Allergy Intermediate Nausea and Uncoded 11/24/22 12:15 Vomiting Home Medications Medication Instructions Recorded Confirmed Type aspirin 81 mg tablet,delayed 81 mg PO DAILY 07/17/19 11/22/22 History release (Adult Low Dose Aspirin) cholecalciferol (vitamin D3) 25 25 mcg PO DAILY 07/17/19 11/22/22 History mcg (1,000 unit) capsule levothyroxine 50 mcg tablet See Rx Instructions .Route 05/08/22 11/22/22 Rx .COMPLEX #90 tabs metoprolol succinate 25 mg See Rx Instructions .Route 09/29/22 11/22/22 Rx tablet,extended release 24 hr .COMPLEX #45 tabs rosuvastatin 40 mg tablet 40 mg PO DAILY 11/22/22 11/22/22 History trazodone 50 mg tablet 50 mg PO HS 11/22/22 11/22/22 History Laboratory Tests 11/22/22 11/23/22 11/24/22 20:07 15:10 04:49 WBC 5.2 K/mm3 (4.5-10.0) RBC 2.52 L M/mm3 (4.2-5.4) Hgb 9.5 L g/dL 7.6 L g/dL (12.0-15.0) (12.0-15.0) Hct 29.6 L % 23.4 L % (37.0-47.0) (37.0-47.0) MCV 92.9 fl (80-100) MCH 30.2 pg (26-34) MCHC 32.5 g/dl (32-36) RDW 16.5 H % (11.5-14.5) Plt Count 165 k/mm3 (150-375) MPV 9.2 fl (7.4-10.4) Sodium 140 mmol/L (137-145) Potassium 3.4 mmol/L (3.4-5.0) Chloride 109 H mmol/L (98-107) Carbon Dioxide 29 mmol/L (22-30) Anion Gap 2 L mmol/L (8-16) BUN 23 H mg/dL (7-17) Creatinine 0.90 mg/dL (0.7-1.0) Estim Creat Clear Calc 32 ml/min Estimated GFR 60 (59 - ) Glucose 88 mg/dL (65-110) Calcium 7.8 L mg/dL (8.4-10.2) Blood Type A Positive Antibody Screen Negative Crossmatch See Detail Patient hx anesthesia problems: none Family hx anesthesia problems: none Results Review: All pre-operative results and documents have been reviewed as part of the pre-operative evaluation. [facility] Past Medical History Medical History CAD (coronary artery disease) Diverticulosis Encounter for vaccination Foreign body of ear, left Hyperlipidemia Hypertension Hypothyroidism Myocardial infarction 2002. Stent placed. Submandibular gland mass Surgical History Surgical History H/O heart artery stent Hx of cataract surgery Family History Family History Father Acute myocardial infarction Mother Carcinoma of colon Social History Social History Smoking packs per day: 15 Smoking cigarettes per day: 300.0 Years smoked: 40 Smoking pack-years: 600.00 Smoking status: Former smoker Additional smoking assessment comments: quit 25 years ago Alcohol intake: current Drinks per week: 2 Substance use: never Substance use type: does not use Lack of Transportation: No Lack of Food: Never True Current Housing: I Have Housing Concerned About Future Housing: No Difficulty Paying Gas/Electric Bills: No Difficulty Paying for Meds: No Currently Unemployed: No Education: Bachelor's Degree Difficulty w/ Childcare or Family Care: No Living arrangements: alone Occupa
--- NOTE | 2022-11-24 13:47 | SUR.OPER ---
EGD completed at 1339, Colonoscopy started at 1345
[2022-11-24] MEDS: CHOLECALCIFEROL 1,000 UNITS TABLET 1000 UNITS PO (14:42)
[2022-11-24] MEDS: ROSUVASTATIN 10 MG TABLET 40 MG PO (14:43)
[2022-11-24 15:18] LABS: Hematocrit 31.1 % (37.0-47.0); Hemoglobin 10.1 g/dL (12.0-15.0)
--- NOTE | 2022-11-24 18:00 | PDONCCN ---
HPI - Date of Consult Date/Time: 11/24/22 18:00 Requesting Physician: Bell Barbour MD Primary Care Provider: Toby Monreal, DO - Consult Narrative Reason for consult: Normocytic anemia Narrative: Gita Worthy is a 82 year old female with history of hypertension, hyperlipidemia and hypothyroidism along with coronary artery disease status post stent placement came into the ER with generalized weakness for 3 months duration and was sent for the last 2 weeks duration along with lightheadedness and dizziness. Labs showed hemoglobin of 6.1. She had 1 episode of dark stool 1 week ago but denies any recent melena hematochezia. Labs showed iron 36, iron saturation 11% ferritin 7.5 with B12 of 261. Creatinine was normal at 0.9. Initial hemoglobin was 5.7. Patient received 3 units of packed red blood cell and hemoglobin now has improved to 10.1. EGD showed esophageal web and dilatation was performed. Colonoscopy showed large internal hemorrhoids there was stigmata of bleeding from the hemorrhoid and multiple medium diverticulosis. Review of Systems - Review of Systems All systems reviewed & are unremarkable except as noted in HPI and [facility] Medical History: Medical History (Last Reviewed 11/22/22 @ 19:36 by Haylie Miranda MD) CAD (coronary artery disease) Diverticulosis Encounter for vaccination Foreign body of ear, left Hyperlipidemia Hypertension Hypothyroidism Myocardial infarction 2002. Stent placed. Submandibular gland mass Surgical History: Surgical History (Last Reviewed 11/22/22 @ 19:36 by Haylie Miranda MD) H/O heart artery stent Hx of cataract surgery Family History: Family History (Last Reviewed 11/22/22 @ 19:36 by Haylie Miranda MD) Father Acute myocardial infarction Mother Carcinoma of colon - Social History Social History: Social History (Last Reviewed 11/22/22 @ 19:36 by Haylie Miranda MD) Alcohol Use: Alcohol intake: current Drinks per week: 2 Substance Use: Substance use: never Substance use type: does not use Others: Spiritual care concerns: No Living Arrangements: Living arrangements: alone Oppucation/Education: Occupation/Education: retired Smoking Status: Smoking status: Former smoker Smoking Pack-years: Smoking packs per day: 15 Smoking cigarettes per day: 300.0 Years smoked: 40 Smoking pack-years: 600.00 Comments: Additional smoking assessment comments: quit 25 years ago Social Determinants of Health: Has the Lack of Transportation Kept You From Medical Appointments or From Getting Medications?: No Within the Past 12 Months, Were You Worried Whether Your Food Would Run Out Before You Got Money to Buy More?: Never True What is Your Housing Situation Today?: I Have Housing Are You Worried That in the Next 2 Months, You May Not Have Your Own Housing to Live In?: No Do You Have Trouble Paying Your Heating Or Electricity Bill?: No Do You Have Trouble Paying For Medicines?: No Are You Currently Unemployed and Looking for Work?: No Highest Level of Education Completed: Bachelor's Degree Do You Have Trouble With Childcare or the Care of a Family Member?: No Exam - Vital Signs Vital Signs - 24 hr 11/23/22 19:19 11/24/22 05:25 11/24/22 08:12 Temperature 36.5 C 36.6 C 36.6 C Pulse Rate 67 62 63 Respiratory Rate 16 15 14 Blood Pressure 155/66 H 120/41 L 122/50 L Pulse Oximetry 100 98 100 Oxygen Delivery 11/24/22 08:25 11/24/22 08:32 11/24/22 09:32 Temperature 36.6 C 36.6 C Pulse Rate 65 70 Respiratory Rate 14 14 Blood Pressure 140/50 L 155/68 H Pulse Oximetry 100 100 Oxygen Delivery Room Air 11/24/22 10:32 11/24/22 11:02 11/24/22 12:17 Temperature 36.6 C 36.6 C 36.7 C Pulse Rate 60 65 62 Respiratory Rate 14 14 16 Blood Pressure 140/50 L 140/50 L 154/61 H Pulse Oximetry 100 100 99 Oxygen Delivery Room Air
[2022-11-24] MEDS: ACETAMINOPHEN 325 MG TABLET 650 MG PO (21:19)
[2022-11-24] MEDS: traZODone HCL 50 MG TABLET PO (22:14)
[2022-11-25 05:04] VITALS: BP 130/52; PULSE 58; RESP 20; TEMP 36.8; O2SAT 99
[2022-11-25 05:34] LABS: Hematocrit 27.6 % (37.0-47.0); Hemoglobin 8.9 g/dL (12.0-15.0); Mean Corpuscular HGB Conc 32.2 g/dl (32-36); Mean Corpuscular Hemoglobin 30.5 pg (26-34); Mean Corpuscular Volume 94.5 fl (80-100); Mean Platelet Volume 9.6 fl (7.4-10.4); Platelet Count Result 166 k/mm3 (150-375); Red Blood Count 2.92 M/mm3 (4.2-5.4); Red Cell Distribution Width 15.7 % (11.5-14.5); White Blood Count 5.2 K/mm3 (4.5-10.0)
[2022-11-25 05:49] LABS: Anion Gap -3 mmol/L (8-16); Blood Urea Nitrogen 19 mg/dL (7-17); Carbon Dioxide 28 mmol/L (22-30); Chloride 108 mmol/L (98-107); Estimated CRCL calculation 29 ml/min; Estimated Glomerular Filt Rate 53; Glucose 89 mg/dL (65-110); Potassium 3.7 mmol/L (3.4-5.0); Sodium 133 mmol/L (137-145)
[2022-11-25] MEDS: LEVOTHYROXINE SODIUM 50 MCG TABLET PO ×2 (06:36→06:37)
[2022-11-25] MEDS: IRON SUCROSE COMPLEX 500 MG in SODIUM CHLORIDE 0.9% IV 250 ML 78.57 MG IVPB (09:17)
[2022-11-25] MEDS: CHOLECALCIFEROL 1,000 UNITS TABLET 1000 UNITS PO (09:17)
[2022-11-25] MEDS: CYANOCOBALAMIN INJ 1,000 MCG/ML VIAL 1000 MCG IM (09:17)
[2022-11-25] MEDS: ROSUVASTATIN 10 MG TABLET 40 MG PO (09:18)
[2022-11-25] MEDS: PANTOPRAZOLE SODIUM IV 40 MG VIAL IV PUSH ×2 (09:18→20:32)
[2022-11-25] MEDS: LIDOCAINE 5% PATCH 1 PATCH TRANSDERM (09:18)
--- NOTE | 2022-11-25 09:36 | WPDGIPROGNO ---
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 Patient does have anemia. No specific therapy warranted. Patient has had no dysphagia. Likely the she had acid reflux some point in the past. No overlying erosions at present. (2) Occult blood in stools: Code(s): R19.5 - Other fecal abnormalities Status: Acute Assessment and Plan: Stool positive for occult blood. Likely from internal hemorrhoids. Stool softeners advised at this time. Hemorrhoids are unlikely to contribute to anemia. (3) Anemia: Code(s): D64.9 - Anemia, unspecified Status: Acute Assessment and Plan: Appreciate Hematology input. Anticipate follow-up with primary care service or Hematology. Follow-up CBC at some point after discharge is advised. No specific GI etiology was identified. Small-bowel follow-through negative. Subjective Date/time seen: 11/25/22 09:36 Interval history: Patient alert comfortable this morning. No bleeding reported. Tolerating diet. Anxious to go home. Review of Systems Review of Systems: Review of systems noncontributory. Exam Narrative: Physical exam reveals patient to be alert. Vital signs stable. HEENT exam is unremarkable. Patient is anicteric. Lungs are clear. Heart without murmur. Abdomen bowel sounds are present soft nontender with no organomegaly. Objective Data Vital Signs Vital Signs: Vital Signs - 24 hr 11/24/22 10:32 11/24/22 11:02 11/24/22 12:17 Temperature 98 F 98 F 98.1 F Pulse Rate 60 65 62 Respiratory Rate 14 14 16 Blood Pressure 140/50 L 140/50 L 154/61 H Pulse Oximetry 100 100 99 Oxygen Delivery Room Air 11/24/22 14:04 11/24/22 14:14 11/24/22 14:24 Temperature Pulse Rate 68 64 60 Respiratory Rate 17 23 H 15 Blood Pressure 112/44 L 130/42 L 140/55 L Pulse Oximetry 94 100 100 Oxygen Delivery Room Air Room Air Room Air 11/24/22 15:32 11/24/22 17:44 11/24/22 19:41 Temperature 98 F 99.2 F Pulse Rate 57 L 63 Respiratory Rate 18 20 Blood Pressure 181/74 H 160/53 H 140/61 Pulse Oximetry 100 100 Oxygen Delivery 11/25/22 05:04 Temperature 98.2 F Pulse Rate 58 L Respiratory Rate 20 Blood Pressure 130/52 L Pulse Oximetry 99 Oxygen Delivery Intake/Output Intake/Output: Intake & Output 11/22/22 11/23/22 11/24/22 11/25/22 23:59 23:59 23:59 23:59 Intake Total 0 1410 1690 250 Output Total 700 Balance 0 710 1690 250 Meds/Results Medications: Active Medications Generic Name Dose Route Start Last Admin Trade Name Freq PRN Reason Stop Dose Admin Acetaminophen 650 mg 11/22/22 21:50 11/24/22 21:19 Acetaminophen 325 Mg Tablet PO 650 mg Q6H PRN Administration Mild Pain (1-3) or Fever Cyanocobalamin 1,000 mcg 11/25/22 09:00 11/25/22 09:17 Cyanocobalamin Inj 1,000 Mcg/Ml Vial IM 11/27/22 08:59 1,000 mcg DAILY LILIANE Administration Iron Sucrose 500 mg/ Sodium 275 mls @ 78.571 mls/hr 11/25/22 09:00 11/25/22 09:17 Chloride IVPB 11/27/22 08:59 78.57 mls/hr DAILY LILIANE Administration Levothyroxine Sodium 50 mcg 11/23/22 16:00 11/25/22 06:37 Levothyroxine Sodium 50 Mcg Tablet PO 50 mcg DAILY@0630 LILIANE Administration Lidocaine 1 patch 11/23/22 00:02 11/25/22 09:18 Lidocaine 5% Patch TRANSDERM 1 patch DAILY LILIANE Administration Pantoprazole Sodium 40 mg 11/23/22 21:00 11/25/22 09:18 Pantoprazole Sodium Iv 40 Mg Vial IV PUSH 40 mg Q12HR LILIANE Administration Rosuvastatin Calcium 40 mg 11/24/22 09:00 11/25/22 09:18 Rosuvastatin 10 Mg Tablet PO 40 mg DAILY LILIANE Administration Trazodone HCl 50 mg 11/23/22 21:00 11/24/22 22:14 Trazodone Hcl 50 Mg Tablet PO 50 mg HS LILIANE Administration Vitamin D 1,000 units
--- NOTE | 2022-11-25 11:16 | PM.IMPN ---
Progress Note: A&P Assessment and Plan (1) Iron deficiency anemia: Code(s): D50.9 - Iron deficiency anemia, unspecified Status: Acute Assessment and Plan: Patient seen by Hematology Dr. Ahumada yesterday and IV iron infusions ordered for today and tomorrow for severe symptomatic iron deficiency anemia. H&H peak yesterday 10.1/31.1 after 1 unit PRBC transfusion. On morning labs currently 8.9/27.6. Plan for office follow up next week with CBC drawn before appointment with Dr. Ahumada. She already has appointment scheduled for office visit related to small neck growth/tumor. (2) Internal hemorrhoid, bleeding: Code(s): K64.8 - Other hemorrhoids Status: Acute Assessment and Plan: Colonoscopy showed brown stool throughout with large internal hemorrhoids with stigmata of bleeding, felt to be insignificant to explain anemia but sufficient to explain positive Hemoccult. 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 Patient denies any pain, GERD symptoms. She ate breakfast without discomfort. Given webbing and anemia, [place]-Gideon syndrome remains in differential as cause of anemia. (4) Family history of colon cancer in mother: Code(s): Z80.0 - Family history of malignant neoplasm of digestive organs Status: Acute Assessment and Plan: No polyps or masses seen on colonoscopy. Patient to follow up with GI in clinic. (5) Sinusitis: Code(s): J32.9 - Chronic sinusitis, unspecified Status: Acute Assessment and Plan: Minor irritation without palpable tenderness, earache, fever, cough or purulent nasal discharge. Order Afrin PRN and Flonase for topical management of chronic sinusitis. (6) Hypothyroidism: Code(s): E03.9 - Hypothyroidism, unspecified Status: Acute Assessment and Plan: On home medication, stable (7) Hypertension: Code(s): I10 - Essential (primary) hypertension Status: Acute Assessment and Plan: Home medication still on hold, BP had been soft for a week or so, now normal. Will trend BP and likely resume home medications on discharge. (8) CAD (coronary artery disease): Code(s): I25.10 - Atherosclerotic heart disease of [place] coronary artery without angina pectoris Status: Acute Assessment and Plan: Stable, no chest pain or shortness of breath. Transfusion completed yesterday given hemoglobin less than 8. Time Spent With Patient Time with patient: 25 - 35 minutes Subjective Date/time seen: 11/25/22 11:16 Interval history: This is an 82-year-old female patient admitted for severe anemia with weakness possible GI bleed. 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 Patient also had colonoscopy which showed large internal hemorrhoids with stigmata of mild bleeding which is likely the cause of positive Hemoccult stool per GI. However, uncertain exact cause of significant anemia. Patient had hematology consult with Dr. Ahumada yesterday and he recommended IV iron infusions x2 days for severe iron deficiency anemia. Patient reported that she feels great this morning with good energy. Patient denies any symptoms or concerns except mild sinus/nasal congestion which she states happens all the time for her. Review of Systems Review of Systems: All systems reviewed & are unremarkable except as noted in HPI and below Exam Narrative: GENERAL: Generally well appearing, alert and oriented, in no apparent distress. She is pleasant and conversant in full sentences. HEENT: Pupils are equally round and briskly reactive to light. Extraocular muscles are intact. Oral mucous membranes are moist without lesions. NECK: The patient has no noted JVD. No adenopathy is appreciated. CHEST/LUNGS: Lungs are clear bilaterally without rhonchi, rales, or wheez
[2022-11-25] MEDS: ACETAMINOPHEN 325 MG TABLET 650 MG PO (13:59)
[2022-11-25 14:00] VITALS: BP 130/68; PULSE 69; RESP 18; TEMP 36.8; O2SAT 99
[2022-11-25] MEDS: FLUTICASONE PROPIONATE 0.05% NA SPR 16 GM BTL (*BKC) 2 SPRAY NASAL (14:20)
[2022-11-25] MEDS: methylPREDNISolone SOD SUCC 125 MG VIAL IV PUSH (14:20)
[2022-11-25] MEDS: OXYMETAZOLINE HCL 0.05% NAS 15 ML BTL (*BKC) 1 SPRAY NASAL ×2 (14:20→20:32)
[2022-11-25 19:25] VITALS: BP 161/78; PULSE 80; RESP 18; TEMP 36.9; O2SAT 97
[2022-11-25] MEDS: traZODone HCL 50 MG TABLET PO (20:32)
[2022-11-26 04:34] VITALS: BP 117/45; PULSE 62; RESP 16; TEMP 36.9; O2SAT 95
[2022-11-26 06:04] LABS: Hemoglobin 10.5 g/dL (12.0-15.0); Mean Corpuscular HGB Conc 32.8 g/dl (32-36); Mean Corpuscular Hemoglobin 30.8 pg (26-34); Mean Corpuscular Volume 93.8 fl (80-100); Mean Platelet Volume 9.7 fl (7.4-10.4); Platelet Count Result 176 k/mm3 (150-375); Red Blood Count 3.41 M/mm3 (4.2-5.4); White Blood Count 8.5 K/mm3 (4.5-10.0)
[2022-11-26] MEDS: LEVOTHYROXINE SODIUM 50 MCG TABLET PO (06:29)
[2022-11-26 09:02] LABS: Anion Gap 5 mmol/L (8-16); Blood Urea Nitrogen 16 mg/dL (7-17); Calcium 8.3 mg/dL (8.4-10.2); Carbon Dioxide 25 mmol/L (22-30); Chloride 106 mmol/L (98-107); Estimated CRCL calculation 29 ml/min; Estimated Glomerular Filt Rate 53; Glucose 134 mg/dL (65-110); Sodium 136 mmol/L (137-145)
[2022-11-26] MEDS: ACETAMINOPHEN 500 MG TABLET 1000 MG PO (09:11)
[2022-11-26] MEDS: CYANOCOBALAMIN INJ 1,000 MCG/ML VIAL 1000 MCG IM (09:12)
[2022-11-26] MEDS: CHOLECALCIFEROL 1,000 UNITS TABLET 1000 UNITS PO (09:12)
[2022-11-26] MEDS: OXYMETAZOLINE HCL 0.05% NAS 15 ML BTL (*BKC) 1 SPRAY NASAL (09:13)
[2022-11-26] MEDS: LIDOCAINE 5% PATCH 1 PATCH TRANSDERM (09:13)
[2022-11-26] MEDS: FLUTICASONE PROPIONATE 0.05% NA SPR 16 GM BTL (*BKC) 2 SPRAY NASAL (09:13)
[2022-11-26] MEDS: methylPREDNISolone SOD SUCC 125 MG VIAL IV PUSH (09:13)
[2022-11-26] MEDS: PANTOPRAZOLE SODIUM IV 40 MG VIAL IV PUSH (09:13)
[2022-11-26] MEDS: diphenhydrAMINE HCl INJ 50 MG/ML VIAL 25 MG IV PUSH (09:13)
[2022-11-26] MEDS: ROSUVASTATIN 10 MG TABLET 40 MG PO (09:14)
[2022-11-26] MEDS: IRON SUCROSE COMPLEX 500 MG in SODIUM CHLORIDE 0.9% IV 250 ML 50 MG IVPB (09:53)
--- NOTE | 2022-11-26 10:05 | PM.DS ---
DS: Admitting Diagnosis Discharge Date 11/25/2022 Admitting Diagnosis GI Bleed Hypochromic microcytic anemia Diverticulosis Hypothyroidism Hypertension Hyperlipidemia CAD DS: Discharge Diagnosis Discharge Diagnosis (1) Iron deficiency anemia: Qualifiers: Iron deficiency anemia type: unspecified iron deficiency Qualified Code(s): D50.9 - Iron deficiency anemia, unspecified Code(s): D50.9 - Iron deficiency anemia, unspecified Status: Acute (2) Internal hemorrhoid, bleeding: Code(s): K64.8 - Other hemorrhoids Status: Acute (3) Occult blood in stools: Code(s): R19.5 - Other fecal abnormalities Status: Acute (4) Hypertension: Code(s): I10 - Essential (primary) hypertension Status: Acute (5) Hyperlipidemia: Code(s): E78.5 - Hyperlipidemia, unspecified Status: Acute (6) Hypothyroidism: Code(s): E03.9 - Hypothyroidism, unspecified Status: Acute (7) CAD (coronary artery disease): Code(s): I25.10 - Atherosclerotic heart disease of [place] coronary artery without angina pectoris Status: Acute (8) Family history of colon cancer in mother: Code(s): Z80.0 - Family history of malignant neoplasm of digestive organs Status: Acute DS: Summary Hospital Course Reason for hospitalization: This is an 82-year-old female patient who was admitted to the hospital as a transfer from [facility] to undergo Blood transfusion, EGD and colonoscopy for severe symptomatic anemia and positive Hemoccult test. Hospital Course: patient initially received 2 units packed red blood cell transfusion that brought hemoglobin to 9.5. Following morning hemoglobin was back down to 7.6 so another unit of PRBCs was transfused as patient was seemed to be actively bleeding in the GI tract. Further lab testing indicates iron deficiency anemia. GI service consulted and completed EGD with findings of esophageal web which could be caused from GERD or Rosario Gideon syndrome. Additionally, colonoscopy performed with brown stool noted and large internal hemorrhoids with stigmata of recent bleeding but not actively hemorrhaging. This was felt to cause positive Hemoccult but not be explanatory for severity of anemia. Barium small-bowel follow-through study was unremarkable as well. Hematology was consulted and iron infusions were ordered. after 1st iron transfusion patient developed lower extremity swelling, increased lower back pain that wrapped around the abdomen and some mild shortness of breath / anxiety. Patient was treated conservatively with IV Solu-Medrol for suspected non allergic iron transfusion reaction. We discussed deferring further transfusions the patient elected to undergo 2nd iron transfusion today with pretreatment of Solu-Medrol, Benadryl and Tylenol and infusion at a lower IV rate. Patient tolerated 2nd infusion and discharged with orders for repeat labs before scheduled follow-up with Dr. Ahumada in the clinic next week. Additionally, patient instructed to follow-up with primary care provider regarding antihypertensives. She had held her antihypertensives for a week prior to discovering anemia and those were continued to be held throughout hospitalization. Blood pressure was stable but diastolic reading was somewhat low at times during the stay. Status at Discharge Cognitive/behavioral status at discharge: awake, alert, oriented and pleasant Functional status at discharge: independent ambulation Time Spent with Patient Time attestation: Total time spent providing and/or coordinating discharge services: Time spent: Greater than 30 minutes Exam Narrative: GENERAL: Generally well appearing, alert and oriented, in no apparent distress. She is pleasant and conversant in full sentences. HEENT: Pupils are equally round and briskly reactive to light. Extraocular muscles are intact. Oral mucous membranes are moist without lesion
[2022-11-26 13:52] VITALS: BP 145/56; PULSE 60; RESP 16; TEMP 36.8; O2SAT 97
== END 2022-11-26 15:30 | disposition home or self-care (01) | DRG 812 ==
PROVIDERS: Internal Medicine; Internal Medicine Gastroenterology; Physician Assistant; Admitting Provider Family Medicine; PCP Family Medicine; Visit Provider Nurse Practitioner
PROC: 0DJ08ZZ Inspection of Upper Intestinal Tract, Via Natural or Artificial Opening Endoscopic (ICD-10-PCS; CPT 43235; principal; 2022-11-24 13:30)
DX: D50.9 Iron deficiency anemia, unspecified (principal); K22.2 Esophageal obstruction; K64.8 Other hemorrhoids; E53.8 Deficiency of other specified B group vitamins; I25.10 Atherosclerotic heart disease of native coronary artery without angina pectoris; I10 Essential (primary) hypertension; E78.5 Hyperlipidemia, unspecified; E03.9 Hypothyroidism, unspecified; M79.89 Other specified soft tissue disorders; R06.02 Shortness of breath; T45.4X5A Adverse effect of iron and its compounds, initial encounter; K57.30 Diverticulosis of large intestine without perforation or abscess without bleeding; Z87.891 Personal history of nicotine dependence; Z95.5 Presence of coronary angioplasty implant and graft; Z79.82 Long term (current) use of aspirin; Z80.0 Family history of malignant neoplasm of digestive organs
CPT/HCPCS: 36415; 36430; 74250; 80048; 82607; 82728; 82746; 83540; 83550; 84443; 85014; 85018; 85025; 85027; 86850; 86900; 86901; 86923; 96374; A9270; C9113; G0378; G0379; J1200; J1756; J2704; J2930; J3420; J7050; J7120; P9016

== ENCOUNTER 2022-12-04 07:14 | Outpatient (CLI) | payer MEDICARE, OTHER, SELFPAY ==
--- NOTE | ~2022-12-04 | US_ITS ---
EXAMINATION: US soft tissue head and neck DATE: 12/04/2022 07:42 INDICATION: Benign neoplasm of major salivary gland. TECHNIQUE: Multiple grayscale and Doppler ultrasound images of the neck were obtained. COMPARISON: Ultrasound 05/30/2022 FINDINGS: There is a 1.9 x 3.4 x 2.1 cm hypoechoic mass in left parotid gland. IMPRESSION: 1. 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 Fin e-needle aspiration on 10/13/2020 was suspicious for Warthin tumor. Reviewed, dictated and finalized at location A. IMPRESSION: 1. 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 7 cm on 02/01/2022. Fine-needle aspiration on 10/13/2020 was suspicious for Warth in tumor.
[2022-12-04 14:36] LABS: Basophils Absolute Auto 0.04 K/mm3 (0.00-0.10); Basophils Percent Auto 0.8 % (0.0-1.0); Eosinophils Absolute Auto 0.17 K/mm3 (0.02-0.50); Eosinophils Percent Auto 3.5 % (1.0-6.0); Hematocrit 34.5 % (35.0-42.0); Immature Granulocyte Absolute 0.02 K/mm3 (0.00-0.00); Immature Granulocyte Percent A 0.4 % (0.0-0.0); Lymphocytes Absolute Auto 0.99 K/mm3 (1.10-4.50); Lymphocytes Percent Auto 20.1 % (18.0-42.0); Mean Corpuscular HGB Conc 31.9 g/dL (32.0-36.0); Mean Corpuscular Hemoglobin 30.8 pg (27.0-31.0); Mean Corpuscular Volume 96.6 fL (78.0-102.0); Mean Platelet Volume 8.6 fl (9.2-11.8); Monocytes Absolute Auto 0.52 K/mm3 (0.10-0.90); Monocytes Percent Auto 10.6 % (2.0-11.0); Neutrophils Absolute Auto 3.2 K/mm3 (1.7-7.2); Neutrophils Percent Auto 64.6 % (50.0-70.0); Platelet Count Result 213 K/mm3 (150-420); Red Blood Count 3.57 M/mm3 (4.20-5.40); Red Cell Distribution Width 14.9 % (11.6-14.4); White Blood Count 4.9 K/mm3 (4.8-10.8)
[2022-12-04 15:27] LABS: Ferritin 359 ng/mL (8-252)
== END 2022-12-04 07:15 | disposition home or self-care (01) ==
PROVIDERS: PCP Family Medicine; Visit Provider Family Medicine
DX: D50.9 Iron deficiency anemia, unspecified (principal); D11.9 Benign neoplasm of major salivary gland, unspecified
CPT/HCPCS: 36415; 76536; 82728; 85025

== ENCOUNTER 2023-01-29 10:37 | Outpatient (CLI) | payer MEDICARE, OTHER, SELFPAY ==
[2023-01-29 10:55] LABS: Basophils Absolute Auto 0.05 K/mm3 (0.00-0.10); Basophils Percent Auto 0.9 % (0.0-1.0); Eosinophils Absolute Auto 0.11 K/mm3 (0.02-0.50); Eosinophils Percent Auto 2.1 % (1.0-6.0); Hematocrit 33.1 % (35.0-42.0); Hemoglobin 10.7 g/dL (11.7-13.8); Immature Granulocyte Absolute 0.02 K/mm3 (0.00-0.00); Immature Granulocyte Percent A 0.4 % (0.0-0.0); Lymphocytes Absolute Auto 0.92 K/mm3 (1.10-4.50); Lymphocytes Percent Auto 17.2 % (18.0-42.0); Mean Corpuscular HGB Conc 32.3 g/dL (32.0-36.0); Mean Corpuscular Hemoglobin 31.2 pg (27.0-31.0); Mean Corpuscular Volume 96.5 fL (78.0-102.0); Mean Platelet Volume 8.5 fl (9.2-11.8); Monocytes Percent Auto 7.5 % (2.0-11.0); Neutrophils Absolute Auto 3.9 K/mm3 (1.7-7.2); Neutrophils Percent Auto 71.9 % (50.0-70.0); Platelet Count Result 179 K/mm3 (150-420); Red Blood Count 3.43 M/mm3 (4.20-5.40); Red Cell Distribution Width 14.1 % (11.6-14.4); White Blood Count 5.4 K/mm3 (4.8-10.8)
[2023-01-29 12:12] LABS: Anion Gap 5 mmol/L (8-16); Blood Urea Nitrogen 27 mg/dL (7-18); Carbon Dioxide 31 mmol/L (21-32); Chloride 104 mmol/L (98-108); Estimated Glomerular Filt Rate 55; Glucose 144 mg/dL (70-99); Osmolality Calculated 298 mOsm/kg (285-295); Potassium 3.8 mmol/L (3.5-5.1); Sodium 140 mmol/L (136-145)
[2023-01-29 12:13] LABS: Alanine Aminotransferase 24 U/L (14-59); Albumin Level 3.8 g/dL (3.4-5.0); Alkaline Phosphatase 52 U/L (46-116); Aspartate Amino Transferase 21 U/L (15-37); Bilirubin,Total 0.3 mg/dL (0.00-1.00); Calcium 9.1 mg/dL (8.5-10.1); Ferritin 162 ng/mL (8-252); Iron 67 ug/dL (50-170); Percent Iron Saturation 27 % (12-57); Total Protein 6.4 g/dL (6.4-8.2)
== END 2023-01-29 10:38 | disposition home or self-care (01) ==
LOC: CHSLAB 10:40
PROVIDERS: PCP Family Medicine; Visit Provider Family Medicine
DX: D64.9 Anemia, unspecified (principal); D50.9 Iron deficiency anemia, unspecified
CPT/HCPCS: 36415; 80053; 82728; 83540; 83550; 85025

== ENCOUNTER 2023-02-05 11:19 | Outpatient (CLI) | payer MEDICARE, OTHER, SELFPAY ==
[2023-02-05 11:34] LABS: Basophils Absolute Auto 0.05 K/mm3 (0.00-0.10); Basophils Percent Auto 0.7 % (0.0-1.0); Eosinophils Absolute Auto 0.11 K/mm3 (0.02-0.50); Eosinophils Percent Auto 1.5 % (1.0-6.0); Hematocrit 25.5 % (35.0-42.0); Hemoglobin 8.3 g/dL (11.7-13.8); Immature Granulocyte Absolute 0.03 K/mm3 (0.00-0.00); Immature Granulocyte Percent A 0.4 % (0.0-0.0); Lymphocytes Absolute Auto 1.16 K/mm3 (1.10-4.50); Lymphocytes Percent Auto 15.7 % (18.0-42.0); Mean Corpuscular HGB Conc 32.5 g/dL (32.0-36.0); Mean Corpuscular Hemoglobin 31.7 pg (27.0-31.0); Mean Corpuscular Volume 97.3 fL (78.0-102.0); Mean Platelet Volume 9.2 fl (9.2-11.8); Monocytes Percent Auto 5.4 % (2.0-11.0); Neutrophils Absolute Auto 5.7 K/mm3 (1.7-7.2); Neutrophils Percent Auto 76.3 % (50.0-70.0); Platelet Count Result 202 K/mm3 (150-420); Red Blood Count 2.62 M/mm3 (4.20-5.40); Red Cell Distribution Width 14.5 % (11.6-14.4); White Blood Count 7.4 K/mm3 (4.8-10.8)
[2023-02-05 12:51] LABS: Ferritin 128 ng/mL (8-252); Iron 92 ug/dL (50-170); Percent Iron Saturation 45 % (12-57); Vitamin B12 643 pg/mL (193-986)
== END 2023-02-05 11:20 | disposition home or self-care (01) ==
LOC: CHSLAB 11:22
PROVIDERS: PCP Family Medicine; Visit Provider Internal Medicine Hematology & Oncology
DX: D64.9 Anemia, unspecified (principal)
CPT/HCPCS: 36415; 82607; 82728; 83540; 83550; 85025

== ENCOUNTER 2023-02-08 16:00 | Outpatient (CLI) | payer MEDICARE, OTHER, SELFPAY ==
[2023-02-08] VITALS (7 sets, daily range): BP systolic 106–133; BP diastolic 45–59; PULSE 62–71; RESP 16; TEMP 36.2–36.7; O2SAT 96–99
[2023-02-08 16:14] LABS: Basophils Absolute Auto 0.05 K/mm3 (0.00-0.10); Basophils Percent Auto 0.8 % (0.0-1.0); Eosinophils Absolute Auto 0.12 K/mm3 (0.02-0.50); Eosinophils Percent Auto 1.8 % (1.0-6.0); Hematocrit 21.9 % (35.0-42.0); Immature Granulocyte Absolute 0.05 K/mm3 (0.00-0.00); Immature Granulocyte Percent A 0.8 % (0.0-0.0); Lymphocytes Absolute Auto 1.18 K/mm3 (1.10-4.50); Lymphocytes Percent Auto 17.7 % (18.0-42.0); Monocytes Absolute Auto 0.49 K/mm3 (0.10-0.90); Monocytes Percent Auto 7.4 % (2.0-11.0); Neutrophils Absolute Auto 4.8 K/mm3 (1.7-7.2); Neutrophils Percent Auto 71.5 % (50.0-70.0); Nucleated Red Blood Cells Absolute Auto 0.02 K/mm3 (0.00-0.00); Nucleated Red Blood Cells Perc 0.3 % (0-0.0); Platelet Count Result 226 K/mm3 (150-420); Red Blood Count 2.19 M/mm3 (4.20-5.40); Red Cell Distribution Width 15.9 % (11.6-14.4); White Blood Count 6.7 K/mm3 (4.8-10.8)
[2023-02-08] MEDS: SODIUM CHLORIDE 0.9% IV 250 ML 30 ML IV CONT (18:16)
[2023-02-08 21:52] LABS: Hematocrit 25.5 % (35.0-42.0); Hemoglobin 8.4 g/dL (11.7-13.8)
== END 2023-02-08 16:01 | disposition home or self-care (01) ==
LOC: CHSLAB 16:02
PROVIDERS: PCP Nurse Practitioner Family; Visit Provider Nurse Practitioner Family
DX: D50.9 Iron deficiency anemia, unspecified (principal); R42 Dizziness and giddiness; Z09 Encounter for follow-up examination after completed treatment for conditions other than malignant neoplasm; K92.2 Gastrointestinal hemorrhage, unspecified; R68.89 Other general symptoms and signs; D64.9 Anemia, unspecified
CPT/HCPCS: 36415; 36430; 85014; 85018; 85025; 86850; 86900; 86901; 86920; 96366; 96367; P9016

== ENCOUNTER 2023-02-12 09:56 | Outpatient (CLI) | payer MEDICARE, SELFPAY ==
[2023-02-12 10:13] LABS: Hematocrit 29.2 % (35.0-42.0); Hemoglobin 9.4 g/dL (11.7-13.8)
[2023-02-12 14:19] LABS: Occult Blood Negative (Negative)
== END 2023-02-12 09:57 | disposition home or self-care (01) ==
LOC: CHSLAB 09:57
PROVIDERS: PCP Family Medicine; Visit Provider Nurse Practitioner Family
DX: R19.5 Other fecal abnormalities (principal); D64.9 Anemia, unspecified; K64.8 Other hemorrhoids
CPT/HCPCS: 36415; 82272; 85014; 85018

== ENCOUNTER 2023-02-22 03:37 | Day surgery (SDC) | payer MEDICARE, OTHER, SELFPAY ==
[2023-02-21 09:21] VITALS: BMI 22.1
--- NOTE | ~2023-02-22 | BM_ITS ---
EXAMINATION: CCL bone marrow asp w bx diag ORDER COMPLETED DATE: 02/22/2023 16:46 INDICATION: Chronic anemia TECHNIQUE: A time-out was performed to verify the patient's name, date of , and procedure to b e performed. The procedure including the risks and benefits was discussed with the patient. Risks dis cussed included bleeding, infection, nerve injury and allergic reaction. The patient understood the r isks and agreed to proceed. The skin overlying the right posterior iliac spine was prepped and draped in usual sterile fashion. Anesthetic was administered with 1% lidocaine subcutaneously. Moderate co nscious sedation was achieved with 50 mcg fentanyl IV. An 11 gauge needle was inserted into the right ilium with fluoroscopic guidance. Bone marrow was aspirated. An 8 gauge needle was then inserted int o the right ilium with fluoroscopic guidance. A core bone marrow biopsy was obtained. The needle was removed and the entry site was cleaned and dressed. There were no immediate complications. A total o f 27 fluoroscopic images were recorded. Fluoroscopy exposure time was minutes. FINDINGS: Real-time fluoroscopy demonstrates the biopsy needle tip overlying the right posterior joaquin c spine. Retained barium is seen within multiple diverticula on the recorded images. IMPRESSION: 1. Successful fluoroscopic guided bone marrow aspiration. 2. Successful fluoroscopic guided bone marrow biopsy. Reviewed, dictated and finalized at location A.
[2023-02-22 07:55] VITALS: BP 128/56; PULSE 63; RESP 18; TEMP 36.4; O2SAT 98; BMI 22.1
[2023-02-22 08:14] LABS: Basophils Absolute Auto 0.1 K/mm3 (0.0-0.1); Basophils Percent Auto 0.8 % (0.2-1.2); Eosinophils Absolute Auto 0.1 K/mm3 (0-0.3); Eosinophils Percent Auto 2.3 % (0-4.4); Hematocrit 34.4 % (37.0-47.0); Hemoglobin 10.7 g/dL (12.0-15.0); Immature Granulocyte Absolute 0.01 K/mm3 (0.00-0.031); Immature Granulocyte Percent A 0.2 % (0-0.5); Lymphocytes Percent Auto 11.5 % (18.3-44.2); Mean Corpuscular HGB Conc 31.1 g/dl (32-36); Mean Corpuscular Hemoglobin 31.6 pg (26-34); Mean Corpuscular Volume 101.5 fl (80-100); Mean Platelet Volume 8.9 fl (7.4-10.4); Monocytes Absolute Auto 0.4 K/mm3 (0.1-0.6); Monocytes Percent Auto 6.3 % (2.6-8.5); Neutrophils Absolute Auto 4.8 K/mm3 (1.3-6.7); Neutrophils Percent Auto 78.9 % (45.5-73.1); Platelet Count Result 210 k/mm3 (150-375); Red Blood Count 3.39 M/mm3 (4.2-5.4); Red Cell Distribution Width 14.6 % (11.5-14.5); White Blood Count 6.1 K/mm3 (4.5-10.0)
[2023-02-22 08:23] LABS: INR 1.1; Prothrombin Time 14.2 Seconds (11.1-14.7)
--- NOTE | 2023-02-22 09:00 | WPDMODSED ---
Moderate Sedation Note-Pt Data Patient Data Diagnosis: anemia Present Complaint: anemia Procedure to be performed/Plan: bone marrow biopsy Allergies Allergy/AdvReac Type Severity Reaction Status Date / Time Sulfa (Sulfonamide AdvReac Intermediate Nausea and Verified 02/22/23 07:53 Antibiotics) Vomiting Home Medications Medication Instructions Recorded Confirmed Type aspirin 81 mg tablet,delayed 81 mg PO DAILY 07/17/19 02/22/23 History release (Adult Low Dose Aspirin) cholecalciferol (vitamin D3) 25 25 mcg PO DAILY 07/17/19 02/22/23 History mcg (1,000 unit) capsule rosuvastatin 40 mg tablet 40 mg PO DAILY 11/22/22 02/22/23 History trazodone 50 mg tablet 50 mg PO HS 11/22/22 02/21/23 History vitamin B complex (B 1 tablet PO DAILY #30 tabs 11/26/22 02/22/23 Rx Complex-Vitamin B12 tablet) ascorbic acid (vitamin C) 500 mg PO DAILY 02/08/23 02/22/23 History cetirizine 10 mg tablet (All Day 10 mg PO DAILY PRN Allergies 02/08/23 02/21/23 History Allergy (cetirizine)) lisinopril-hydrochlorothiazide 12.5 mg PO DAILY 02/08/23 02/22/23 History ferrous sulfate 325 mg (65 mg 325 mg PO BID 02/21/23 02/22/23 History iron) tablet levothyroxine 50 mcg tablet 50 mcg PO DAILY 02/21/23 02/22/23 History Sedation/Anesthesia: No previous sedation/anesthesia problems (including family history). [facility] Past Medical History Medical History CAD (coronary artery disease) Diverticulosis Encounter for vaccination Foreign body of ear, left Hyperlipidemia Hypertension Hypothyroidism Myocardial infarction 2002. Stent placed. Submandibular gland mass Surgical History Surgical History H/O heart artery stent Hx of cataract surgery Family History Family History Father Acute myocardial infarction Mother Carcinoma of colon Social History Social History Smoking packs per day: 0.5 Smoking cigarettes per day: 10.0 Years smoked: 40 Smoking pack-years: 20.00 Smoking status: Former smoker Tobacco type: cigarettes Additional smoking assessment comments: quit 25 years ago Alcohol intake: current Drinks per week: 1 Alcohol use details: 1 beer Substance use: never Substance use type: does not use Last use: 1989 Lack of Transportation: No Lack of Food: Never True Current Housing: I Have Housing Concerned About Future Housing: No Difficulty Paying Gas/Electric Bills: No Difficulty Paying for Meds: No Currently Unemployed: No Education: Bachelor's Degree Difficulty w/ Childcare or Family Care: No Living arrangements: alone Occupation/Education: retired 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7 L Hct 34.4 L MCV 101.5 H MCH 31.6 MCHC 31.1 L RDW 14.6 H Plt Count 210 MPV 8.9 Immature Gran % (Auto) 0.2 Neut % (Auto) 78.9 H Lymph % (Auto) 11.5 L Mclennan % (Auto) 6.3 Eos % (Auto) 2.3 Baso % (Auto) 0.8 Lymph # (Auto) 0.70 L Mclennan # (Auto) 0.4 Eos # (Auto) 0.1 Baso # (Auto) 0.1 Abs Immat Gran (auto) 0.01 Absolute Neuts (auto) 4.8 Absolute Nucleated RBC 0.0 Nucleated RBC % 0.0 PT 14.2
[2023-02-22 09:30] VITALS: BP 121/47; PULSE 50; RESP 14; O2SAT 99
[2023-02-22 09:45] VITALS: BP 112/49; PULSE 47; RESP 12; O2SAT 97
[2023-02-22 10:00] VITALS: BP 105/43; PULSE 48; RESP 15; O2SAT 96
[2023-02-22 10:15] VITALS: BP 107/48; PULSE 57; RESP 14; O2SAT 100
[2023-02-22 10:30] VITALS: BP 108/60; PULSE 55; RESP 20; O2SAT 100
== END 2023-02-22 10:30 | disposition home or self-care (01) ==
PROVIDERS: PCP Family Medicine; Referring Provider Internal Medicine Hematology & Oncology; Visit Provider Radiology Diagnostic Radiology
DX: D53.9 Nutritional anemia, unspecified (principal); I25.10 Atherosclerotic heart disease of native coronary artery without angina pectoris; I10 Essential (primary) hypertension; E78.5 Hyperlipidemia, unspecified; E03.9 Hypothyroidism, unspecified; I25.2 Old myocardial infarction; Z95.5 Presence of coronary angioplasty implant and graft; Z87.891 Personal history of nicotine dependence; Z79.82 Long term (current) use of aspirin
CPT/HCPCS: 36415; 38222; 85025; 85610; 88184; 88185; 88305; 88311; 88313; J1642; J3010; J7040

== ENCOUNTER 2023-03-06 07:47 | Outpatient (CLI) | payer MEDICARE, OTHER, SELFPAY ==
--- NOTE | ~2023-03-06 | MM_ITS ---
EXAMINATION: MM screening [facility] BI w frank HISTORY: Screening TECHNIQUE: Craniocaudal and mediolateral oblique 3-D tomosynthesis images were obtained and synthetic 2-D images were generated. CAD analysis was submitted and interpreted. COMPARISON: Comparison to multiple prior studies sequentially, with oldest reviewed study dated 11/2017. BREAST PARENCHYMAL COMPOSITION: Breast composed of scattered areas of fibroglandular density FINDINGS: There is no evidence of suspicious mass, calcification, or architectural distortion to sugg est malignancy in either breast. There has been no suspicious interval change. IMPRESSION: 1. No mammographic evidence of malignancy. 2. Recommend routine screening mammography in one year. BI-RADS Category 1: Negative Reviewed, dictated and finalized at location A.
== END 2023-03-06 07:48 | disposition home or self-care (01) ==
LOC: CHSIMG 07:48
PROVIDERS: PCP Family Medicine; Visit Provider Family Medicine
DX: Z12.31 Encounter for screening mammogram for malignant neoplasm of breast (principal)
CPT/HCPCS: 77063; 77067

== ENCOUNTER 2023-04-10 15:37 | Outpatient (CLI) | payer MEDICARE, OTHER, SELFPAY ==
[2023-04-10 15:51] LABS: Hematocrit 23.2 % (35.0-42.0); Hemoglobin 7.5 g/dL (11.7-13.8)
== END 2023-04-10 15:38 | disposition home or self-care (01) ==
LOC: CHSLAB 15:39
PROVIDERS: PCP Family Medicine; Visit Provider Family Medicine
DX: D64.9 Anemia, unspecified (principal)
CPT/HCPCS: 36415; 85014; 85018

== ENCOUNTER 2023-04-11 14:44 | Outpatient (CLI) | payer MEDICARE, OTHER, SELFPAY ==
[2023-04-11] VITALS (8 sets, daily range): BP systolic 102–134; BP diastolic 36–47; PULSE 70–83; RESP 18–20; TEMP 36.2–37.1; O2SAT 94–100; BMI 22.6
[2023-04-11] MEDS: diphenhydrAMINE HCl CAP 25 MG CAPSULE PO (15:13)
[2023-04-11] MEDS: ACETAMINOPHEN 325 MG TABLET 650 MG PO (15:13)
[2023-04-11] MEDS: SODIUM CHLORIDE 0.9% IV 250 ML 10 ML IVPB (15:29)
--- NOTE | 2023-04-11 16:05 | PC.NURSE ---
1543 blood transfusion started. infusion rate to be titrated. starting rate 75ml/hr. pt sitting up on side of bed. call mera in reach. 1611 blood reaching pt at this time
--- NOTE | 2023-04-11 16:16 | PC.NURSE ---
blood infusing without difficulty. no sign of infiltration at iv insertion site.
--- NOTE | 2023-04-11 16:36 | PC.NURSE ---
lights out for comfort, warm blanket applied. call mera in reach. tolerating infusion well. no adverse reactions voiced. increased infusion rate to 125ml/hr.
[2023-04-11 16:55] LABS: Ferritin 107 ng/mL (8-252); Iron 70 ug/dL (50-170); Percent Iron Saturation 27 % (12-57); Vitamin B12 362 pg/mL (193-986)
--- NOTE | 2023-04-11 17:33 | PC.NURSE ---
infusion rate increased to 150ml/hr. tolerating infusion. no adverse reactions noted. lungs clear. resp even unlabored.
--- NOTE | 2023-04-11 18:16 | PC.NURSE ---
unit #1 completed. call placed to lab to draw H&H. awaiting arrival. clearing blood tubing with NS at this time
--- NOTE | 2023-04-11 18:42 | PC.NURSE ---
awaiting lab draw. pt up to go to bathroom , states feeling better, not dizzy . daughter in room with pt.
--- NOTE | 2023-04-11 18:44 | PC.NURSE ---
juliann , lab staff in with pt now for lab draw. pt back to bed. call ede in reach.
[2023-04-11 18:50] LABS: Hematocrit 24.5 % (35.0-42.0); Hemoglobin 7.9 g/dL (11.7-13.8)
--- NOTE | 2023-04-11 18:58 | PC.NURSE ---
hemoglobin report to be 7.9. pt requesting not to get 2nd unit. attempted to call dr amato with no answer. pt states hemoglobin usually will go up more. family at home and daughter here with pt.
--- NOTE | 2023-04-11 19:18 | PC.NURSE ---
1909 pt discharge instructions given , voiced understanding. pt taken to lobby per this sql report writer via wheelchair. waiting in lobby with daughter for family to filler picker. pt alert , stable. feeling better. 1924 dr amato returned call. informed of pt updated hemoglobin level and pt request for only [address] amato agrees. no new orders.
== END 2023-04-11 19:10 | disposition home or self-care (01) ==
PROVIDERS: PCP Family Medicine; Visit Provider Nurse Practitioner Family
DX: D50.9 Iron deficiency anemia, unspecified (principal)
CPT/HCPCS: 36415; 36430; 82607; 82728; 83540; 83550; 85014; 85018; 86850; 86900; 86901; 86920; A9270; J7050; P9016

== ENCOUNTER 2023-04-13 16:44 | Emergency (ER) | payer MEDICARE, OTHER, SELFPAY ==
[2023-04-13] VITALS (15 sets, daily range): BP systolic 111–136; BP diastolic 44–81; PULSE 64–87; RESP 12–20; TEMP 36.3–37.1; O2SAT 96–100
--- NOTE | 2023-04-13 16:53 | ED.WEAKNESS ---
HPI - Weakness General Chief complaint: Weakness Stated complaint: weakness Time Seen by Provider: 04/13/23 16:47 Source: patient and RN notes reviewed Mode of arrival: ambulatory Limitations: no limitations History of Present Illness HPI Narrative: patient has a history of chronic anemia and sees a client administrator at [facility]. She was here 3 days ago after she had an outpatient H&H which showed her hemoglobin is 7.5. She was transfused 1 L of PRBCs and then her repeat hemoglobin of 7.9 she did not get a 2nd unit even though was ordered. Today she says she feels like she is weak again and might need another transfusion. Complaint: generalized weakness Onset (ago): day(s) (1) Duration: constant Location: generalized Migration: none Severity: moderate Quality: dull Relieving factors: none Exacerbating factors: exertion Context: history of similar Associated symptoms: denies other symptoms Related Data Home Medications Medication Instructions Recorded Confirmed aspirin 81 mg tablet,delayed 81 mg PO DAILY 07/17/19 04/13/23 release (Adult Low Dose Aspirin) cholecalciferol (vitamin D3) 25 25 mcg PO DAILY 07/17/19 04/13/23 mcg (1,000 unit) capsule rosuvastatin 40 mg tablet 40 mg PO DAILY 11/22/22 04/13/23 trazodone 50 mg tablet 50 mg PO HS 11/22/22 04/13/23 ascorbic acid (vitamin C) 500 mg PO DAILY 02/08/23 04/13/23 cetirizine 10 mg tablet (All Day 10 mg PO DAILY PRN Allergies 02/08/23 04/13/23 Allergy (cetirizine)) lisinopril-hydrochlorothiazide 12.5 mg PO DAILY 02/08/23 04/13/23 ferrous sulfate 325 mg (65 mg 325 mg PO BID 02/21/23 04/13/23 iron) tablet levothyroxine 50 mcg tablet 50 mcg PO DAILY 02/21/23 04/13/23 Allergies Allergy/AdvReac Type Severity Reaction Status Date / Time Sulfa (Sulfonamide AdvReac Intermediate Nausea and Verified 04/03/23 11:24 Antibiotics) Vomiting Review of Systems Review of Systems: All systems reviewed & are unremarkable except as noted in HPI and below PMFSH Past Medical History Medical History CAD (coronary artery disease) Diverticulosis Encounter for vaccination Foreign body of ear, left Hyperlipidemia Hypertension Hypothyroidism Myocardial infarction 2002. Stent placed. Submandibular gland mass Surgical History Surgical History H/O heart artery stent Hx of cataract surgery Family History Family History Father Acute myocardial infarction Mother Carcinoma of colon Social History Social History Smoking packs per day: 0.5 Smoking cigarettes per day: 10.0 Years smoked: 40 Smoking pack-years: 20.00 Smoking status: Former smoker Tobacco type: cigarettes Additional smoking assessment comments: quit 25 years ago Alcohol intake: current Drinks per week: 1 Alcohol use details: 1 beer Substance use: never Substance use type: does not use Last use: 1989 Lack of Transportation: No Lack of Food: Never True Current Housing: I Have Housing Concerned About Future Housing: No Difficulty Paying Gas/Electric Bills: No Difficulty Paying for Meds: No Currently Unemployed: No Education: Bachelor's Degree Difficulty w/ Childcare or Family Care: No Living arrangements: alone Occupation/Education: retired 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
[2023-04-13 17:12] LABS: Basophils Absolute Auto 0.05 K/mm3 (0.00-0.10); Basophils Percent Auto 0.6 % (0.0-1.0); Eosinophils Absolute Auto 0.05 K/mm3 (0.02-0.50); Eosinophils Percent Auto 0.6 % (1.0-6.0); Hemoglobin 7.7 g/dL (11.7-13.8); Immature Granulocyte Absolute 0.06 K/mm3 (0.00-0.00); Immature Granulocyte Percent A 0.7 % (0.0-0.0); Lymphocytes Absolute Auto 1.42 K/mm3 (1.10-4.50); Lymphocytes Percent Auto 16.8 % (18.0-42.0); Mean Corpuscular HGB Conc 33.5 g/dL (32.0-36.0); Mean Corpuscular Volume 95.4 fL (78.0-102.0); Mean Platelet Volume 9.4 fl (9.2-11.8); Monocytes Absolute Auto 0.66 K/mm3 (0.10-0.90); Monocytes Percent Auto 7.8 % (2.0-11.0); Neutrophils Absolute Auto 6.2 K/mm3 (1.7-7.2); Neutrophils Percent Auto 73.5 % (50.0-70.0); Nucleated Red Blood Cells Absolute Auto 0.03 K/mm3 (0.00-0.00); Nucleated Red Blood Cells Perc 0.4 % (0-0.0); Platelet Count Result 239 K/mm3 (150-420); Red Blood Count 2.41 M/mm3 (4.20-5.40); Red Cell Distribution Width 15.9 % (11.6-14.4); White Blood Count 8.4 K/mm3 (4.8-10.8)
[2023-04-13 17:20] LABS: Anion Gap 8 mmol/L (8-16); Blood Urea Nitrogen 22 mg/dL (7-18); Calcium 8.5 mg/dL (8.5-10.1); Carbon Dioxide 31 mmol/L (21-32); Chloride 97 mmol/L (98-108); Estimated CRCL calculation 24 ml/min; Estimated Glomerular Filt Rate 42; Glucose 134 mg/dL (70-99); Osmolality Calculated 287 mOsm/kg (285-295); Potassium 3.6 mmol/L (3.5-5.1); Sodium 136 mmol/L (136-145)
[2023-04-13] MEDS: SODIUM CHLORIDE 0.9% IV 250 ML 30 ML IV CONT (17:48)
[2023-04-13 17:49] LABS: Influenza A QL RT-PCR Negative (Negative); Influenza B QL RT-PCR Negative (Negative); SARS-CoV-2 RNA PCR Negative (Negative)
--- NOTE | 2023-04-13 19:14 | PC.NURSE ---
1800 blood rate started at 100ml/hr. 1845 pt tolerating transfusion, rate increased to 125ml/hr.
== END 2023-04-13 20:06 | disposition home or self-care (01) ==
PROVIDERS: Emergency Provider Emergency Medicine; PCP Family Medicine
DX: D64.9 Anemia, unspecified (principal); I25.10 Atherosclerotic heart disease of native coronary artery without angina pectoris; I10 Essential (primary) hypertension; E03.9 Hypothyroidism, unspecified; E78.5 Hyperlipidemia, unspecified; Z79.82 Long term (current) use of aspirin; Z79.899 Other long term (current) drug therapy; Z87.891 Personal history of nicotine dependence; Z20.822 Contact with and (suspected) exposure to COVID-19
CPT/HCPCS: 36415; 36430; 80048; 85025; 86850; 86900; 86901; 86920; 87636; 96360; 96361; 99285; J7050; P9016

== ENCOUNTER 2023-06-12 09:55 | Outpatient (CLI) | payer MEDICARE, SELFPAY ==
[2023-06-12 10:38] LABS: Basophils Absolute Auto 0.05 K/mm3 (0.00-0.10); Basophils Percent Auto 0.8 % (0.0-1.0); Eosinophils Absolute Auto 0.06 K/mm3 (0.02-0.50); Eosinophils Percent Auto 0.9 % (1.0-6.0); Hematocrit 41.9 % (35.0-42.0); Hemoglobin 13.8 g/dL (11.7-13.8); Immature Granulocyte Absolute 0.02 K/mm3 (0.00-0.00); Immature Granulocyte Percent A 0.3 % (0.0-0.0); Lymphocytes Absolute Auto 0.76 K/mm3 (1.10-4.50); Lymphocytes Percent Auto 11.9 % (18.0-42.0); Mean Corpuscular HGB Conc 32.9 g/dL (32.0-36.0); Mean Corpuscular Hemoglobin 31.2 pg (27.0-31.0); Mean Corpuscular Volume 94.6 fL (78.0-102.0); Mean Platelet Volume 8.7 fl (9.2-11.8); Monocytes Absolute Auto 0.31 K/mm3 (0.10-0.90); Monocytes Percent Auto 4.8 % (2.0-11.0); Neutrophils Absolute Auto 5.2 K/mm3 (1.7-7.2); Neutrophils Percent Auto 81.3 % (50.0-70.0); Platelet Count Result 177 K/mm3 (150-420); Red Blood Count 4.43 M/mm3 (4.20-5.40); Red Cell Distribution Width 13.1 % (11.6-14.4); White Blood Count 6.4 K/mm3 (4.8-10.8)
[2023-06-12 12:57] LABS: Ferritin 106 ng/mL (8-252); Folic Acid > 20.0 ng/mL (8.6->20); Iron 62 ug/dL (50-170); Percent Iron Saturation 22 % (12-57); Vitamin B12 622 pg/mL (193-986)
== END 2023-06-12 09:56 | disposition home or self-care (01) ==
PROVIDERS: PCP Family Medicine; Visit Provider Internal Medicine Hematology & Oncology
DX: D64.9 Anemia, unspecified (principal)
CPT/HCPCS: 36415; 82607; 82728; 82746; 83540; 83550; 85025

== ENCOUNTER 2023-09-12 09:58 | Outpatient (CLI) | payer MEDICARE, SELFPAY ==
[2023-09-12 10:58] LABS: Basophils Absolute Auto 0.05 K/mm3 (0.00-0.10); Basophils Percent Auto 0.9 % (0.0-1.0); Eosinophils Percent Auto 1.7 % (1.0-6.0); Hematocrit 39.3 % (35.0-42.0); Hemoglobin 13.1 g/dL (11.7-13.8); Immature Granulocyte Absolute 0.02 K/mm3 (0.00-0.00); Immature Granulocyte Percent A 0.3 % (0.0-0.0); Lymphocytes Absolute Auto 0.92 K/mm3 (1.10-4.50); Lymphocytes Percent Auto 15.8 % (18.0-42.0); Mean Corpuscular HGB Conc 33.3 g/dL (32-36); Mean Corpuscular Hemoglobin 31.4 pg (27.0-31.0); Mean Corpuscular Volume 94.2 fL (78.0-102.0); Monocytes Absolute Auto 0.41 K/mm3 (0.10-0.90); Neutrophils Absolute Auto 4.33 K/mm3 (1.70-7.20); Neutrophils Percent Auto 74.3 % (50.0-70.0); Platelet Count Result 184 K/mm3 (150-420); Red Blood Count 4.17 M/mm3 (4.20-5.40); White Blood Count 5.8 K/mm3 (4.8-10.8)
[2023-09-12 12:38] LABS: Ferritin 192 ng/mL (8-252); Iron 88 ug/dL (50-170); Percent Iron Saturation 34 % (12-57); Vitamin B12 729 pg/mL (193-986)
[2023-09-12 12:57] LABS: Folic Acid > 20.0 ng/mL (8.6->20)
== END 2023-09-12 09:59 | disposition home or self-care (01) ==
PROVIDERS: PCP Family Medicine; Visit Provider Internal Medicine Hematology & Oncology
DX: D64.9 Anemia, unspecified (principal)
CPT/HCPCS: 36415; 82607; 82728; 82746; 83540; 83550; 85025

== ENCOUNTER 2023-10-09 15:07 | Outpatient (CLI) | payer MEDICARE, SELFPAY | END 2023-10-09 15:08 | disposition home or self-care (01) | LOC: CHSLAB 15:10 | PROVIDERS: PCP Family Medicine; Visit Provider Specialist | DX: L72.0 Epidermal cyst (principal) | CPT/HCPCS: 88304; 88305 ==

== ENCOUNTER 2023-11-21 09:37 | Outpatient (NON) | payer MEDICARE, SELFPAY | END 2023-11-21 09:38 | disposition home or self-care (01) | LOC: CHSLAB 09:43 | PROVIDERS: Visit Provider Family Medicine | DX: R35.0 Frequency of micturition (principal) | CPT/HCPCS: 87086; 87088 ==

== ENCOUNTER 2023-11-23 09:32 | Outpatient (CLI) | payer MEDICARE, SELFPAY ==
--- NOTE | ~2023-11-23 | CT_ITS ---
EXAMINATION: CT abd pelvis lumbar wo con DATE: 11/23/2023 09:51 INDICATION: Abdominal pain. Hematuria. Low back pain. TECHNIQUE: Computed tomography (CT) of the abdomen and pelvis and lumbar spine was performed without intravenous contrast. Automated exposure control and iterative reconstruction technique were employed . The dose-length product was 238.65 mGy-cm. COMPARISON: CT abdomen pelvis 08/04/2010 FINDINGS: CT ABDOMEN AND PELVIS: The visualized portions of the lung bases demonstrate emphysema and mild atele ctasis. No pleural effusion. The heart size is normal. There are coronary artery calcifications. No p ericardial effusion. There is pectus excavatum. The liver, gallbladder, spleen, pancreas, and left ad renal gland are normal. There is a 15 mm mass in right adrenal gland without change, likely an adenom a. The kidneys are normal. There is no urolithiasis. There is diverticulosis of the colon without amy dence of diverticulitis. There are no dilated loops of bowel. The appendix is normal. Aortic atherosc lerosis is noted. There are no pathologically enlarged lymph nodes. There is no free intraperitoneal fluid. CT LUMBAR SPINE: There is 10 degrees dextroscoliosis of lumbar spine. There is 3 mm retrolisthesis of L2 on L3 and L3 on L4. There is mild chronic anterior wedging of T12 vertebral body. There is modera tely decreased disc height at L1-L2, severely decreased disc height at L2-L3 and L3-L4, mildly decrea sed disc height at L4-L5, and severely decreased disc height at L5-S1. The following disc levels are specifically discussed: L1-L2: The disc is bulging. There is mild bilateral facet joint osteoarthritis. There is mild bilater al neural foraminal stenosis. There is mild central canal stenosis. L2-L3: The disc is bulging. There is mild right and moderate left facet joint osteoarthritis. There i s mild bilateral neural foraminal stenosis. There is mild central canal stenosis. L3-L4: The disc is bulging. There is moderate right and mild left facet joint osteoarthritis. There i s mild bilateral neural foraminal stenosis. There is mild central canal stenosis. L4-L5: The disc is bulging. There is severe bilateral facet joint osteoarthritis. There is mild bilat eral neural foraminal stenosis. There is mild central canal stenosis. L5-S1: The disc is bulging. There is severe bilateral facet joint osteoarthritis. There is moderate b ilateral neural foraminal stenosis. There is mild central canal stenosis. IMPRESSION: 1. No urolithiasis. 2. Severe lumbar spondylosis. 3. Lumbar dextroscoliosis. Reviewed, dictated and finalized at location A.
[2023-11-23 10:17] LABS: Basophils Absolute Auto 0.05 K/mm3 (0.00-0.10); Basophils Percent Auto 0.7 % (0.0-1.0); Eosinophils Absolute Auto 0.11 K/mm3 (0.02-0.50); Eosinophils Percent Auto 1.6 % (1.0-6.0); Hematocrit 39.4 % (35.0-42.0); Hemoglobin 13.3 g/dL (11.7-13.8); Immature Granulocyte Absolute 0.03 K/mm3 (0.00-0.00); Immature Granulocyte Percent A 0.4 % (0.0-0.0); Lymphocytes Absolute Auto 0.74 K/mm3 (1.10-4.50); Lymphocytes Percent Auto 11.1 % (18.0-42.0); Mean Corpuscular HGB Conc 33.8 g/dL (32-36); Mean Corpuscular Hemoglobin 31.4 pg (27.0-31.0); Mean Corpuscular Volume 92.9 fL (78.0-102.0); Mean Platelet Volume 8.4 fl (9.2-11.8); Monocytes Absolute Auto 0.47 K/mm3 (0.10-0.90); Neutrophils Absolute Auto 5.27 K/mm3 (1.70-7.20); Neutrophils Percent Auto 79.2 % (50.0-70.0); Platelet Count Result 171 K/mm3 (150-420); Red Blood Count 4.24 M/mm3 (4.20-5.40); White Blood Count 6.7 K/mm3 (4.8-10.8)
[2023-11-23 11:15] LABS: Alanine Aminotransferase 23 U/L (14-59); Albumin Level 4.1 g/dL (3.4-5.0); Alkaline Phosphatase 56 U/L (46-116); Anion Gap 11 mmol/L (4-12); Aspartate Amino Transferase 21 U/L (15-37); Bilirubin,Total 0.5 mg/dL (0.00-1.00); Blood Urea Nitrogen 20 mg/dL (7-18); Calcium 9.2 mg/dL (8.5-10.1); Carbon Dioxide 28 mmol/L (21-32); Chloride 93 mmol/L (98-108); Estimated Glomerular Filt Rate 57; Ferritin 200 ng/mL (8-252); Glucose 112 mg/dL (70-99); Iron 69 ug/dL (50-170); Osmolality Calculated 277 mOsm/kg (285-295); Percent Iron Saturation 27 % (12-57); Potassium 4.3 mmol/L (3.5-5.1); Sodium 132 mmol/L (136-145); Total Protein 6.8 g/dL (6.4-8.2)
== END 2023-11-23 09:33 | disposition home or self-care (01) ==
LOC: CHSIMG 09:34
PROVIDERS: PCP Family Medicine; Visit Provider Family Medicine
DX: D50.9 Iron deficiency anemia, unspecified (principal); M54.50 Low back pain, unspecified; G89.29 Other chronic pain; R10.9 Unspecified abdominal pain; M43.06 Spondylolysis, lumbar region; M41.86 Other forms of scoliosis, lumbar region
CPT/HCPCS: 36415; 72131; 74176; 80053; 82728; 83540; 83550; 85025

== ENCOUNTER 2023-12-17 13:17 | Outpatient (CLI) | payer MEDICARE, SELFPAY | END 2023-12-17 13:18 | disposition home or self-care (01) | LOC: ANHAUDASC 13:18 | PROVIDERS: PCP Family Medicine; Visit Provider Family Medicine | DX: H90.3 Sensorineural hearing loss, bilateral (principal) | CPT/HCPCS: 92557; 92567 ==

== ENCOUNTER 2024-03-11 11:42 | Outpatient (CLI) | payer MEDICARE, SELFPAY ==
--- NOTE | ~2024-03-11 | MM_ITS ---
EXAMINATION: MM screening [facility] BI w frank HISTORY: Screening TECHNIQUE: Craniocaudal and mediolateral oblique 3-D tomosynthesis images were obtained and synthetic 2-D images were generated. CAD analysis was submitted and interpreted. COMPARISON: Comparison to multiple prior studies sequentially, with oldest reviewed study dated 02/16. BREAST PARENCHYMAL COMPOSITION: Not dense: There are scattered areas of fibroglandular density. FINDINGS: There is no evidence of suspicious mass, calcification, or architectural distortion to sugg est malignancy in either breast. There has been no suspicious interval change. IMPRESSION: 1. No mammographic evidence of malignancy. 2. Recommend routine screening mammography in one year. BI-RADS Category 1: Negative Reviewed, dictated and finalized at location B.
== END 2024-03-11 11:43 | disposition home or self-care (01) ==
PROVIDERS: PCP Family Medicine; Visit Provider Family Medicine
DX: Z12.31 Encounter for screening mammogram for malignant neoplasm of breast (principal)
CPT/HCPCS: 77063; 77067

== ENCOUNTER 2024-03-17 11:19 | Outpatient (CLI) | payer MEDICARE, SELFPAY ==
[2024-03-17 12:15] LABS: Basophils Absolute Auto 0.04 K/mm3 (0.00-0.10); Basophils Percent Auto 0.7 % (0.0-1.0); Eosinophils Absolute Auto 0.07 K/mm3 (0.02-0.50); Eosinophils Percent Auto 1.1 % (1.0-6.0); Hemoglobin 13.3 g/dL (11.7-13.8); Immature Granulocyte Absolute 0.03 K/mm3 (0.00-0.00); Immature Granulocyte Percent A 0.5 % (0.0-0.0); Lymphocytes Absolute Auto 0.88 K/mm3 (1.10-4.50); Lymphocytes Percent Auto 14.4 % (18.0-42.0); Mean Corpuscular HGB Conc 34.1 g/dL (32-36); Mean Corpuscular Hemoglobin 31.5 pg (27.0-31.0); Mean Corpuscular Volume 92.4 fL (78.0-102.0); Mean Platelet Volume 9.1 fl (9.2-11.8); Monocytes Absolute Auto 0.46 K/mm3 (0.10-0.90); Monocytes Percent Auto 7.6 % (2.0-11.0); Neutrophils Absolute Auto 4.61 K/mm3 (1.70-7.20); Neutrophils Percent Auto 75.7 % (50.0-70.0); Platelet Count Result 193 K/mm3 (150-420); Red Blood Count 4.22 M/mm3 (4.20-5.40); Red Cell Distribution Width 11.9 % (11.6-14.4); White Blood Count 6.1 K/mm3 (4.8-10.8)
[2024-03-17 13:20] LABS: Alanine Aminotransferase 26 U/L (14-59); Albumin Level 3.9 g/dL (3.4-5.0); Alkaline Phosphatase 59 U/L (46-116); Anion Gap 8 mmol/L (4-12); Aspartate Amino Transferase 19 U/L (15-37); Bilirubin,Total 0.5 mg/dL (0.00-1.00); Blood Urea Nitrogen 17 mg/dL (7-18); Calcium 9.1 mg/dL (8.5-10.1); Carbon Dioxide 32 mmol/L (21-32); Chloride 97 mmol/L (98-108); Estimated Glomerular Filt Rate 53; Ferritin 316 ng/mL (8-252); Folic Acid 18.6 ng/mL (8.6->20); Glucose 110 mg/dL (70-99); Iron 77 ug/dL (50-170); Osmolality Calculated 286 mOsm/kg (285-295); Percent Iron Saturation 29 % (12-57); Potassium 3.5 mmol/L (3.5-5.1); Sodium 137 mmol/L (136-145); Total Protein 6.9 g/dL (6.4-8.2); Vitamin B12 1006 pg/mL (193-986)
== END 2024-03-17 11:20 | disposition home or self-care (01) ==
PROVIDERS: PCP Family Medicine; Visit Provider Internal Medicine Hematology & Oncology
DX: D64.9 Anemia, unspecified (principal)
CPT/HCPCS: 36415; 80053; 82607; 82728; 82746; 83540; 83550; 85025

== ENCOUNTER 2024-09-16 14:08 | Outpatient (CLI) | payer MEDICARE, SELFPAY ==
[2024-09-16 14:37] LABS: Hematocrit 40.1 % (35.0-42.0); Hemoglobin 12.9 g/dL (11.7-13.8); Mean Corpuscular HGB Conc 32.2 g/dL (32-36); Mean Corpuscular Hemoglobin 30.9 pg (27.0-31.0); Mean Corpuscular Volume 95.9 fL (78.0-102.0); Mean Platelet Volume 8.9 fl (9.2-11.8); Platelet Count Result 179 K/mm3 (150-420); Red Blood Count 4.18 M/mm3 (4.20-5.40); Red Cell Distribution Width 12.3 % (11.6-14.4); White Blood Count 6.6 K/mm3 (4.8-10.8)
--- OUTSIDE RECORDS SUMMARY | 2024-09-16 15:24 | XMS_ITS | Encounter Summary ---
Author Organization [facility] Address [address] [place] [address] Care Team Providers Care Yarn Man Name Role Phone Herminio Ernst MD Unavailable Marcela VincentP- Unavailable [phone] Toby Monreal DO Primary Care Provider [phone] Herminio Statno DO Unavailable [phone] Encounter Details Date Type Department Care Team (Late st Contact Info) Description 10/21/2020 [facility] [address] [place] [id number] Abstract, Doc [facility] Social History Tobacco Use Types Packs/Day Years Used Date Smoking Tobacco: Former Cigarettes Q uit: 2000 Smokeless Tobacco: Never Alcohol Use Standard Drinks/Week Comments Yes 3.3 (1 standard drink = 0.6 oz p ure alcohol) 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 No / Unsure 09/22/2020 12:27 PM CDT documented as of this encounter Plan of Treatment Not on file documented as of this encounter Visit Diagnoses Not on filedocumented in this encounter Care Teams Yarn Man Relationship Specialty Start Date End Date Toby Monreal DO [address] [place] [address] PCP - General FAMILY PRACTICE 07/23/20 Herminio Ernst MD [address] [place] [address] CARDIOVASCULAR DISEASE 03/28/16 2 [facility] [address] [place] [address] NURSE PRACTITIONER 03/28/16 08/17/21 Herminio Staton DO [address] [place] [address] Consulting Physician CARDIOVASCULAR DISEASE 08/18/21 documented as of this encounter
--- OUTSIDE RECORDS SUMMARY | 2024-09-16 15:25 | XMS_ITS | Encounter Summary ---
Author Organization [facility] Address [address] [place] [address] Care Team Providers Care Gas Operations Superintendent Name Role Phone Unavailable Primary Care Provider Unavailabl e Encounter Details Date Type Department Care Team (Late st Contact Info) Description 02/23/2023 Lab Requisition [facility] - Pathology Lab [address] [place] [id number] Sumeet Fox MD [address] [address] Illness, unspecified Social History Tobacco Use Types Packs/Day Years Used Date Smoking Tobacco: Never Assessed Comments Unknown Sex and Gender Information Value Date Recorded Sex Assigned at Not on file Legal Sex Female 8:52 AM CDT Gender Identity Not on file Sexual Orientation Not on file documented as of this encounter Plan of Treatment Not on file documented as of this encounter Procedures Procedure Name Priority Date/Time Associated Diagnosis Comments BONE MARROW BIOPSY (STL) Routine 02/22/2023 9:00 AM CDT Illness, unspecified documented in this encounter Results * BONE MARROW BIOPSY (STL) (02/22/2023 9:00 AM CDT) Case Report Bone Marrow Patholog y Report Case: [id number] Authorizing Provider: Sumeet Fox MD Collected: 02/22/2023 09:00 AM Ordering Location: [facility] Care Pathology Lab Received: 02/23/2023 03:41 PM Pathologist: Olga Esposito MD Specimens: A) - Bone Marrow Clot B) - Bone Marrow Core 02/23/2023 4:35 PM CDT [facility] Final Diagnosis Bone marrow, aspirate, clot section, and core biopsy: - Normocellular marrow with maturing trilineage hematopoiesis - No evidence of lymphoma or high-grade myeloid neoplasm - See description Peripheral blood smear: - Macrocytic anemia - See description 02/23/2023 4:35 PM [facility] PATHOLOGY LAB Comment Overall, the bone marrow specimen is normocellular for age with maturing trilineage hematopoiesis and no evidence of lymphoma, a high-grade myeloid neoplasm, or significant dyspoiesis. Correlation with clinical findings and relevant cytogenetic/molecular testing is required. 02/23/2023 4:35 PM [facility] PATH[facility] Peripheral Smear Description CBC Data: WBC - 6.1, Hgb - 10.7, MCV - 101.5, MCHC - 31.1, and Platelets - 210. Leukocyte number: normal. Granulocyte morphology: normal. Lymphocyte morphology: normal. Erythrocyte number: decreased. Erythrocyte morphology: macrocytic. Anisopoikilocytosis: mild. Polychromasia: mild. Platelet number: normal. Platelet morphology: normal. 02/23/2023 4:35 PM [facility] PATH[facility] Bone Marrow Aspirate Differential count (200 cells): 1% blasts, 59% maturing myeloid precursors, 32.5% erythroid progenitors, 1.5% monocytes, 1% eosinophils, 2.5% lymphocytes, and 2.5% plasma cells. Specimen quality: adequate. Spicules: present. Trilineage Hematopoiesis: present. Myeloid:Erythroid ratio: 1.9:1. Myeloid Maturation: normal. Erythroid Maturation: normal. Megakaryocyte morphology: normal nuclear lobation. Storage iron (by special stain): adequate. Sideroblastic iron (by special stain): adequate. Control is appropriately reactive. 02/23/2023 4:35 PM [facility] Bone Marrow Core Biopsy and Clot Section Description Specimen quality: The decalcified bone marrow core biopsy is adequate with 1.2 cm of evaluable marrow. Cellularity: normocellular, 30%. Trilineage Hematopoiesis: present. Myeloid to Erythroid ratio: normal. Myeloid maturation and localization: normal. Erythroid maturation and localization: normal. Megakaryocyte number: normal. Megakaryocyte distribution: normal. Lymphoid aggregates: absent. Clot section marrow particles: present. Clot section morphology: similar to core biopsy. Clot section iron (by special stain): adequate. 02/23/2023 4:35 PM CDT [facility] Flow Cytometry Summary Concurrent flow cytometry ([id number]) shows no monoclonal B-cell population or increase in blasts. 02/23/2023 4:35 PM CDT [facility] Clinical History 82 year old woman with iron and vitamin B12 deficiency anemia. 02/23/2023 4:35 PM T [facility] Materials Received Received are 20 slides and 3 blocks labeled [id number] along with a copy of the outside pathology report. The materials originate from [place] [address]. All original materials are returned to the referring institution, along with a copy of our final report. 02/23/2023 4:35 PM CDT [facility] Pathologist Location at [facility] 02/23/2023 4:35 PM CDT [facility] Disclaimer The performance characteristics of all immunohistochemical and indirect immunofluorescence stains (if any) cited in this report were determined by the Histopathology Laboratory of [facility]. Some of these tests were developed by our own laboratory and have not been cleared or approved by the US Food and Drug Administration. The FDA does not require this test to go through premarket FDA review. These tests are used for clinical purposes. They should not be regarded as investigational or for research. This laboratory is certified under the Clinical Laboratory Improvement Amendments (CLIA) as qualified to perform high complexity clinical laboratory testing. This case has been personally reviewed and interpreted by the attending (teaching) pathologist. 02/23/2023 4:35 PM T [facility] Embedded Images 02/23/2023 4:35 PM CDT [facility] Pathology/Cytology BONE MARROW SPECIMEN / Unknown 02/22/2023 9:00 AM CDT 02/23/2023 3:41 PM CDT Miscellaneous samples (specimen) BONE MARROW SPECIMEN / Unknown 02/22/2023 9:00 AM CDT 02/23/2023 3:41 PM CDT us Sumeet Fox MD LAB - PATHOLOGY/CYTOLOGY ORDERAB LES Final Result [facility] [address] [place], [place] [id number] [place] [address] documented in this encounter Visit Diagnoses Diagnosis Illness, unspecified documented in this encounter
--- OUTSIDE RECORDS SUMMARY | 2024-09-16 15:25 | XMS_ITS | Clinical Summary ---
Author Organization [facility] Rowdysheridan radha [facility] Address [address] [place] [address] Care Team Providers Care Side Gluer Name Role Phone Toby Monreal DO Primary Care Provider [phone] Allergies Active Allergy Reactions Criticality Noted Date Comments Sulfa (Sulfonamide Antibiotics) Unknown 12/2015 Medications cholecalciferol, vitamin D3, 1,000 unit Take 1,000 Units by mouth. Active rosuvastatin (CRESTOR) 40 mg tablet TAKE ONE TABLET BY MOUTH DAILY 07/05/2018 Active levothyroxine 50 mcg tablet 04/08/2019 Active traZODone (DESYREL) 50 mg tablet 10/30/2020 Active cetirizine (ZyrTEC) 10 mg tablet Take 1 Tablet by mouth 1 time daily as needed. Active lisinopril-hydro CHLOROthiazide (ZESTORETIC) 20-12.5 mg tablet 10/29/2021 Active cyanocobalamin 1,000 mcg Tablet Take 1,000 mcg by mouth daily. Active ascorbic acid, vitamin C, (VITAMIN C) 500 mg tablet Take 500 mg by mouth daily. Active ferrous sulfate 325 mg (65 mg iron) tablet Take 325 mg by mouth daily. 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 Encounters Date Type Department Care Team Description 09/10/2024 Telephone [facility] Oncology and Hematology - [place] [address] [place] [address] Nelson Ahumada MD Appointment Correction 07/08/2024 External Device Data STL ABSTRACTION Provider, Abstract from Last 3 Months Family History Medical History Relation Name Comments Heart Disease Brother 1 Cancer Brother 2 Heart Disease Father Cancer Mother Diabetes Sister Relation Name Status Comments Brother 1 Alive Brother 2 Father Mother Sister Alive Social History Tobacco Use Types Packs/Day Years Used Date Smoking Tobacco: Former Cigarettes 0.5 15 0 05/21/1984 - 05/21/1999 Smokeless Tobacco: Never Tobacco Cessation:Counseling Given: Not Answered Alcohol Use Standard Drinks/Week Comments Never 0 (1 standard drink = 0.6 oz pur e alcohol) Comments No Sex and Gender Information Value Date Recorded Sex Assigned at Not on file Legal Sex Female 2:15 PM CDT Gender Identity Not on file Sexual Orientation Not on file Last Filed Vital Signs Vital Sign Reading Time Taken Comments Blood Pressure 114/65 03/19/2024 10:41 AM CDT Pulse 71 03/19/2024 10:41 AM CDT Temperature 36.7 C (98 F) 03/19/2024 10:41 AM CDT Respiratory Rate 14 03/19/2024 10:4 1 AM CDT Oxygen Saturation 96% 03/19/2024 10: 41 AM CDT Inhaled Oxygen Concentration - - Weight 54.8 kg (120 lb 12.8 oz) 024 10:41 AM CDT Height 157.5 cm (5' 2 ) 02/08/2022 10:0 5 AM CDT Body Mass Index 22.09 02/08/2022 10:05 AM CDT Plan of Treatment Upcoming Encounters Date Type Department Care Team (Late st Contact Info) Description 09/17/2024 10:15 AM CDT Office Visit [facility] Oncology and Hematology - [place] [address] [facility] [address] [place] [address] Nelson Ahumada MD [address] [place] [address] Health Maintenance Due Date Last Done Comments DTAP/TDAP/TD VACCINES (1 - Tdap) 1957 PNEUMOCOCCAL VACCINE 50+ YEARS (1 of 1 - PCV) 03/12/19 88 ZOSTER VACCINE (1 of 2) 1988 RSV VACCINE (60+ or ) (1 - 1-dose 75+ series) 2013 OSTEOPOROSIS SCREENING 10/30/2023 10/29/2018 INFLUENZA VACCINE (#1) 2023 Insurance MEDICARE PART A AND B [facility] Member Subscriber Plan / Payer ( fective 2020-Present) Name:ZaynabCalixtoGita E Relation to Subscriber:Self Name:Gita Worthy Yesy Payer ID:Not on file Group ID:Not on file Type:Supplemental Address: [address] [place] Care Teams Side Gluer Relationship Specialty Start Date End Date Toby Monreal DO [address] [place] [address] PCP - General Family Practice 06/07/22
--- OUTSIDE RECORDS SUMMARY | 2024-09-16 15:25 | XMS_ITS | Clinical Summary ---
Author Organization [facility] Address [address] [place] [address] Care Team Providers Care Packing Line Worker Name Role Phone MeghannToby callejas Primary Care Provider [phone] Allergies Active Allergy Reactions Criticality Noted Date Comments Sulfa Antibiotics Nausea Only 04/27/2016 Medications aspirin EC (ASPIRIN) 81 MG EC tablet Take by mouth daily. 07/23/2006 Active docusate sodium 100 MG capsule Take 100 mg by mouth daily. Active Cholecalciferol (VITAMIN D) 1000 UNIT tablet Take 1,000 Units by mouth daily. Active Cetirizine HCl (ZYRTEC ALLERGY OR) Take 1 tablet by mouth as needed. Active ROSUVASTATIN 40 MG tablet TAKE ONE TABLET BY MOUTH DAILY 90 tablet 3 07/05/2018 Active levothyroxine 50 MCG tablet 04/08/2019 Active metoprolol tartrate 25 MG tablet 10/03/2020 Active traZODone 50 MG tablet 01/07/2021 Active lisinopril 20 MG tablet Take 1 tablet (20 mg total) by mouth 2 (two) times a day. 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 04/27/2016 Essential hypertension 04/27/2016 Mixed hyperlipidemia 04/27/2016 S/P coronary artery stent placement 04/27/2016 Acute inferior myocardial infarction (CMS/HCC HH S/HCC) 09/13/2003 Overview (04/28/2016): treated with thrombolytic therapy Family History Medical History Relation Comments Heart Attack Brother 1 Stroke Brother 1 Stent Cardiac Brother 2 Heart Attack Father Diabetes Sister Relation Status Comments Brother 1 (Age 83) lung cancer, M I, stroke Brother 2 Alive CAD, stent, PVD Father (Age 58) CT Mother (Age 73) cancer Sister Alive diabetes Social History Tobacco Use Types Packs/Day Years [...] file Not on file Not on file Last Filed Vital Signs Vital Sign Reading Time Taken Comments Blood Pressure 138/72 04/07/2021 10:59 AM NIGHT CLERK AUDITOR Pulse 62 04/07/2021 10:58 AM NIGHT CLERK AUDITOR Temperature - - Respiratory Rate 18 04/07/2021 10:58 AM NIGHT CLERK AUDITOR Oxygen Saturation 99% 04/07/2021 10:58 AM NIGHT CLERK AUDITOR Inhaled Oxygen Concentration - - Weight 55.2 kg (121 lb 9.6 oz) 04/07/2021 10:58 AM NIGHT CLERK AUDITOR Height 160 cm (5' 3 ) 04/07/2021 10:58 AM NIGHT CLERK AUDITOR Body Mass Index 21.54 04/07/2021 10:58 AM NIGHT CLERK AUDITOR Plan of Treatment Health Maintenance Due Date Last Done Comments ASCVD Statin 1938 DTaP, Tdap and Td Vaccines ( 1 - Tdap) 1957 Pneumococcal Vaccine: 50+ Years (1 of 2 - PCV) 1957 Zoster Vaccines (1 of 2) 1988 Annual Medicare Wellness Visit 2003 RSV Immunization or 60+ Years (1 - 1-dose 75+ series) 2013 ASCVD LDL 05/31/2019 05/31/2018, 04/24/2016, 02/26/2015 COVID-19 Vaccine (3 - 2023-2 5 season) 2024 06/15/2020, 05/18/2020 Meningococcal B Vaccine Aged Out No l onger eligible based on patient's age to complete this topic Meningococcal Vaccine Aged Out No [place] demi eligible based on patient's age to complete this topic RSV Immunizations Under 20 Months Aged Out No longer eligible b ased on patient's age to complete this topic Procedures Procedure Name Priority Date/Time Associated Diagnosis Comments LIPID PANEL Routine 05/31/2018 from Last 3 Months or Most Recently Relevant to Health Maintenance Results * LIPID PANEL (05/31/2018) CHOLESTEROL 140 HDL 70 TRIGLYCERIDES 96 CHOL/HDL RATIO 2.0 LDL (CALCULATED) 51 05/31/2018 us Doc [facility] Abstract LABORATORY Final Result from Last 3 Months or Most Recently Relevant to Health Maintenance Insurance [facility] [place] [id number] MEDICARE [facility] Care Teams Packing Line Worker Relationship Specialty Start Date End Date Toby Monreal DO [address] [place] [address] PCP - General FAMILY PRACTICE 07/23/20
--- OUTSIDE RECORDS SUMMARY | 2024-09-16 15:25 | XMS_ITS | Clinical Summary ---
Author Organization [facility] Address [address] [place] [address] Care Team Providers Care Rolls Mill Operator Name Role Phone Unavailable Primary Care Provider Unavailabl e Source Comments [facility],non-owned Affiliates and Associated Physician Practices is amultiple site organization consisting of ambulatory clinics and hospital sitesin [place], [place], [place] and [place]. This disclosure is being madepursuant to the Care Everywhere program and may not contain all information available regarding this patient. Last updated 18.[facility] Social History Tobacco Use Types Packs/Day Years Used Date Smoking Tobacco: Never Assessed Comments Unknown Sex and Gender Information Value Date Recorded Sex Assigned at Not on file Legal Sex Female 8:52 AM CDT Gender Identity Not on file Sexual Orientation Not on file Plan of Treatment Health Maintenance Due Date Last Done Comments BONE DENSITY TESTING 1940 MEDICARE AWV 12 MONTHS 1940 DTAP/TDAP/TD VACCINES (1 - Tdap) 1957 PNEUMOCOCCAL VACCINE 50+ (1 of 1 - PCV) 1988 ZOSTER VACCINE (1 of 2) 1988 Respiratory Syncytial Virus (RSV) Vaccine Pt: or over 60 yrs (1 - 1-dose 75+ series) 2013 COVID-19 VACCINE ( - 2023-2 5 season) 2024 DEPRESSION SCREENING 05/21/2024 INFLUENZA VACCINE (Season Ended) 2025 HEPATITIS B VACCINE Aged Out No longe r eligible based on patient's age to complete this topic HIB VACCINE Aged Out No longer eligi ble based on patient's age to complete this topic HPV VACCINE Aged Out No longer eligi ble based on patient's age to complete this topic MENINGOCOCCAL (Group B) VACC INE SHARED DECISION-MAKING Aged Out No longer eligibl e based on patient's age to complete this topic MENINGOCOCCAL GROUPS A/C/Y/W VACCINE Aged Out No longer eligible b ased on patient's age to complete this topic Insurance MEDICARE MEDICARE
--- OUTSIDE RECORDS SUMMARY | 2024-09-16 15:25 | XMS_ITS | Encounter Summary ---
Author Organization [facility] Address [address] [place] [address] Care Team Providers Care Violin Restorer Name Role Phone Herminio Ernst MD Unavailable Marcela VincentNIDA Unavailable [phone] Toby Monreal DO Primary Care Provider Herminio Staton DO Unavailable [phone] Encounter Details Date Type Department Care Team (Late st Contact Info) Description 04/27/2016 Abstract [facility] [address] [place] [address] Marcela Vincent FNP-BC [address] [place] [address] Social History Tobacco Use Types Packs/Day Years Used Date Smoking Tobacco: Former Cigarettes Q uit: 2000 Alcohol Use Standard Drinks/Week Comments Yes 0 (1 standard drink = 0.6 oz pure alcohol) Occasional alcohol use on weekends. 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 Not on file Not on file documented as of this encounter Plan of Treatment Not on file documented as of this encounter Visit Diagnoses Not on filedocumented in this encounter Care Teams Violin Restorer Relationship Specialty Start Date End Date Toby Monreal DO [address] [place] [address] PCP - General FAMILY PRACTICE 07/23/20 Herminio Ernst MD [address] [place] [address] CARDIOVASCULAR DISEASE 03/28/16 2 Marcela [facility] [address] [place] [address] NURSE PRACTITIONER 03/28/16 08/17/21 Herminio Staton DO [address] [place] [address] Consulting Physician CARDIOVASCULAR DISEASE 08/18/21 documented as of this encounter
--- OUTSIDE RECORDS SUMMARY | 2024-09-16 15:25 | XMS_ITS | Encounter Summary ---
Author Organization [facility] Address [address] [place] [address] Care Team Providers Care Traffic Control Operator Name Role Phone Herminio Ernst MD Unavailable Marcela VincentP- Unavailable [phone] Toby Monreal DO Primary Care Provider Herminio Staton DO Unavailable [phone] Encounter Details Date Type Department Care Team (Late st Contact Info) Description 03/10/2015 Abstract [facility] [address] [place] [address] Herminio Ernst MD [address] [place] [address] Social History Tobacco Use Types Packs/Day Years [...] on filedocumented in this encounter Care Teams Traffic Control Operator Relationship Specialty Start Date End Date Toby Monreal DO [address] [place] [address] PCP - General FAMILY PRACTICE 07/23/20 Herminio Ernst MD [address] [place] [address] CARDIOVASCULAR DISEASE 03/28/16 2 Marcela Vincent [facility] [address] [place] [address] NURSE PRACTITIONER 03/28/16 08/17/21 Herminio Staton DO [address] [place] [address] Consulting Physician CARDIOVASCULAR DISEASE 08/18/21 documented as of this encounter
--- OUTSIDE RECORDS SUMMARY | 2024-09-16 15:25 | XMS_ITS | Encounter Summary ---
Author Organization [facility] Address [address] [place] [address] Care Team Providers Care Market Research Analyst Name Role Phone Unavailable Primary Care Provider Unavailabl e Encounter Details Date Type Department Care Team (Late st Contact Info) Description 02/22/2023 Lab Requisition [facility] - Pathology Lab [address] [place] [id number] Sumeet Fox MD [address] [address] Anemia in other chronic diseases classified elsewhere Social History Tobacco Use Types Packs/Day Years [...] Procedure Name Priority Date/Time Associated Diagnosis Comments FLOW CYTOMETRY BONE MARROW Routine 02/22/2023 9:00 AM CDT Anemia in other chronic diseases classified elsewhere documented in this encounter Results * FLOW CYTOMETRY BONE MARROW (02/22/2023 9:00 AM CDT) Case Report Flow Cytometry Case: [id number] Authorizing Provider: Sumeet Fox MD Collected: 02/22/2023 09:00 AM Ordering Location: [facility] Care Pathology Lab Received: 02/22/2023 01:29 PM Pathologist: Olga Esposito MD Specimen: Bone Marrow 02/22/2023 3:45 PM CDT U PATHOLOGY LAB Final Diagnosis Bone marrow, flow cytometric immunophenotypic analysis: - No monoclonal B-cell population or increase in blasts detected - See interpretation 02/22/2023 3:45 PM [facility] PATHOLOGY LAB Flow Cytometry Interpretation Viability: 94% B-cells: polytypic, kappa:lambda ratio 1.7:1 Blasts: detected, 2.6% of events A bone marrow aspirate smear prepared from the flow cytometry specimen has been reviewed for quality improvement consultant purposes. 02/22/2023 3:45 PM [facility] PATHOLOGY LAB Flow Cytometry Results Differential Result Comment Flow Cell Count /uL 24,800 Total Viability % 94.0 Lymphocytes % 9 Dim CD45 Region % 12 Monocytes % 10 Granulocytes % 70 02/22/2023 3:45 PM [facility] PATHOLOGY LAB Reason for test Anemia in other chronic diseases classified elsewhere 02/22/2023 3:45 PM [facility] PATHOLOGY LAB Client Specimen ID # [id number] 02/22/2023 3:45 PM [facility] PATHOLOGY LAB Number of markers 10 were performed. A-2 Flow CD10 A-3 Flow CD13 A-5 Flow CD20 A-1 Flow CD5 A-4 Flow CD19 A-6 Flow CD33 A-7 Flow CD34 A-8 Flow CD45 A-9 [place]+CD19+ A-10 Lambda+CD19+ 02/22/2023 3:45 PM [facility] PATHOLOGY LAB Pathologist Location at [facility] 02/22/2023 3:45 PM [facility] PATHOLOGY LAB Disclaimer Test performed at [facility], [address] [place] [address], [id number]. *The established laboratory minimum viability is 70%. Values below the minimum may result in the failure to find an abnormal population of cells. This test was developed and its performance characteristics determined by the Flow Cytometry Laboratory. It has not been cleared by the [place] Food and Drug Administration (FDA). The FDA has determined that such clearance or approval is not necessary. This test is used for clinical purposes. It should not be regarded as investigational or for research. This laboratory is regulated under the Clinical Laboratory Improvement Amendments of 1998 (CLIA) as a qualified to perform high complexity clinical testing. 02/22/2023 3:45 PM [facility] PATHOLOGY LAB Embedded Images 3:45 PM [facility] PATHOLOGY LAB Pathology/Cytolo gy BONE MARROW SPECIMEN / Unknown 02/22/2023 9:00 AM CDT 02/22/2023 1:29 PM CDT us Sumeet Fox MD LAB - PATHOLOGY/CYTOLOGY ORDERAB LES Final Result [facility] PATHOLOGY LAB [address] [place] [address], [facility] [phone] documented in this encounter Visit Diagnoses Diagnosis Anemia in other chronic diseases classified elsewhere documented in this encounter
[2024-09-16 16:00] LABS: Anion Gap 2 mmol/L (4-12); Blood Urea Nitrogen 25 mg/dL (7-18); Calcium 9.3 mg/dL (8.5-10.1); Carbon Dioxide 32 mmol/L (21-32); Chloride 96 mmol/L (98-108); Estimated Glomerular Filt Rate 23; Ferritin 297 ng/mL (8-252); Glucose 95 mg/dL (70-99); Iron 68 ug/dL (50-170); Osmolality Calculated 274 mOsm/kg (285-295); Percent Iron Saturation 25 % (12-57); Potassium 3.5 mmol/L (3.5-5.1); Sodium 130 mmol/L (136-145); Vitamin B12 834 pg/mL (193-986)
[2024-09-16 16:05] LABS: Folic Acid > 20.0 ng/mL (8.6->20)
== END 2024-09-16 14:09 | disposition home or self-care (01) ==
PROVIDERS: PCP Family Medicine; Visit Provider Internal Medicine Hematology & Oncology
DX: D64.9 Anemia, unspecified (principal)
CPT/HCPCS: 36415; 80048; 82607; 82728; 82746; 83540; 83550; 85027

== ENCOUNTER 2024-11-18 10:58 | Outpatient (CLI) | payer MEDICARE, SELFPAY ==
--- OUTSIDE RECORDS SUMMARY | 2024-11-18 11:11 | XMS_ITS | Encounter Summary ---
Author Organization [facility] Address [address] [place] [address] Care Team Providers Care Freight Air Brake Fitter Name Role Phone Unavailable Primary Care Provider Unavailabl e Encounter Details Date Type Department Care Team (Late st Contact Info) Description 02/22/2023 Lab Requisition [facility] - Pathology Lab [address] [place] [phone] Sumeet Fox MD [address] [address] Anemia in other chronic diseases [...] AM CDT) Case Report Flow Cytometry Case: [id number] Authorizing Provider: Sumeet Fox MD Collected: 02/22/2023 09:00 AM Ordering Location: [facility] Pathology Lab Received: 02/22/2023 01:29 PM Pathologist: Olga Esposito MD Specimen: Bone Marrow 02/22/2023 3:45 PM CDT U PATHOLOGY LAB Final Diagnosis Bone marrow, flow cytometric immunophenotypic analysis: - No monoclonal B-cell population or increase in blasts detected - See interpretation 02/22/2023 3:45 PM [facility] PATHOLOGY LAB at 1545 CDT Flow Cytometry Interpretation Viability: 94% B-cells: polytypic, kappa:lambda ratio 1.7:1 Blasts: detected, 2.6% of events A bone marrow aspirate smear prepared from the flow cytometry specimen has been reviewed for director supplier quality purposes. 02/22/2023 3:45 PM [facility] PATHOLOGY LAB Flow Cytometry Results Differential Result Comment Flow Cell Count /uL 24,800 Total Viability % 94.0 Lymphocytes % 9 Dim CD45 Region % 12 Monocytes % 10 Granulocytes % 70 02/22/2023 3:45 PM [facility] Reason for test Anemia in other chronic diseases classified elsewhere 02/22/2023 3:45 PM [facility] PATH[facility] Client Specimen ID # [id number] 02/22/2023 3:45 PM [facility] PATHOLOG[facility] LAB Number of markers 10 were performed. A-2 Flow CD10 A-3 Flow CD13 A-5 Flow CD20 A-1 Flow CD5 A-4 Flow CD19 A-6 Flow CD33 A-7 Flow CD34 A-8 Flow CD45 A-9 [place]+CD19+ A-10 Lambda+CD19+ 02/22/2023 3:45 PM [facility] Pathologist Location at [facility] 02/22/2023 3:45 PM [facility] Disclaimer Test performed at [facility], [address] [place] [address], [address]. *The established laboratory minimum viability is 70%. [...] high complexity clinical testing. 02/22/2023 3:45 PM [facility] PATH[facility] Embedded Images 3:45 PM [facility] PATH[facility] Pathology/Cytolo gy BONE MARROW SPECIMEN / Unknown 02/22/2023 9:00 AM CDT 02/22/2023 1:29 PM CDT us Sumeet Fox MD LAB - PATHOLOGY/CYTOLOGY ORDERAB LES Final Result [facility] PATHOLOGY LAB [address] [place] [address], [facility] [phone] documented in this encounter Visit Diagnoses Diagnosis Anemia in other chronic diseases classified elsewhere documented in this encounter
--- OUTSIDE RECORDS SUMMARY | 2024-11-18 11:11 | XMS_ITS | Encounter Summary ---
Author Organization [facility] Address [address] [place] [address] Care Team Providers Care Purchasing Administrative Assistant Name Role Phone Herminio Ernst MD Unavailable Marcela VincentP- Unavailable [phone] Toby Monreal DO Primary Care Provider [phone] Herminio Staton DO Unavailable [phone] Encounter Details Date Type Department Care Team (Late st Contact Info) Description 10/21/[address] [facility] [address] [place] [id number] Abstract, Doc Prevea Social History Tobacco Use [...] on filedocumented in this encounter Care Teams Purchasing Administrative Assistant Relationship Specialty Start Date End Date Toby Monreal DO [address] [place] [address] PCP - General FAMILY PRACTICE 07/23/20 Herminio Ernst MD [address] [place] [address] CARDIOVASCULAR DISEASE 03/28/16 2 Marcel[facility] [address] [place] [address] NURSE PRACTITIONER 03/28/16 08/17/21 Herminio Staton DO [address] [place] [address] Consulting Physician CARDIOVASCULAR DISEASE 08/18/21 documented as of this encounter
--- OUTSIDE RECORDS SUMMARY | 2024-11-18 11:11 | XMS_ITS | Clinical Summary ---
Author Organization [facility] Address [address] [place] [address] Care Team Providers Care Paying Teller Name Role Phone Unavailable Primary Care Provider Unavailabl e Source Comments [facility],non-owned Affiliates and Associated Physician Practices is amultiple site organization consisting of ambulatory clinics and hospital sitesin [place], [place], [place] and [place]. This disclosure is being madepursuant to the Care Everywhere program and may not contain all information available regarding this patient. Last updated 18.[facility] Social History Tobacco Use Types Packs/Day Years [...]
--- OUTSIDE RECORDS SUMMARY | 2024-11-18 11:11 | XMS_ITS | Encounter Summary ---
Author Organization [facility] Address [address] [place] [address] Care Team Providers Care Paper Bags Sewing Machine Operator Name Role Phone Unavailable Primary Care Provider Unavailabl e Encounter Details Date Type Department Care Team (Late st Contact Info) Description 02/23/2023 Lab Requisition [facility] - Pathology Lab [address] [place] [phone] Sumeet Fox MD [address] [address] Illness, unspecified Social History Tobacco [...] Report Bone Marrow Patholog y Report Case: [id number] Authorizing Provider: Sumeet Fox MD Collected: 02/22/2023 09:00 AM Ordering Location: [facility] Care Pathology Lab Received: 02/23/2023 03:41 [...] anemia - See description 02/23/2023 4:35 PM [facility] PATHOLOGY LAB at 1635 CDT AP Comment Overall, the bone marrow specimen is normocellular for age with maturing trilineage hematopoiesis and no evidence of lymphoma, a high-grade myeloid neoplasm, or significant dyspoiesis. Correlation with clinical findings and relevant cytogenetic/molecular testing is required. 02/23/2023 4:35 PM [facility] PATHOLOG[facility] Peripheral Smear Description CBC Data: WBC - 6.1, Hgb - 10.7, MCV - 101.5, MCHC - 31.1, and Platelets - 210. Leukocyte number: normal. Granulocyte morphology: normal. Lymphocyte morphology: normal. Erythrocyte number: decreased. Erythrocyte morphology: macrocytic. Anisopoikilocytosis: mild. Polychromasia: mild. Platelet number: normal. Platelet morphology: normal. 02/23/2023 4:35 PM [facility] Bone Marrow Aspirate Differential [...] Control is appropriately reactive. 02/23/2023 4:35 PM [facility] Bone Marrow Core Biopsy [...] special stain): adequate. 02/23/2023 4:35 PM CDT [facility] Flow Cytometry Summary Concurrent flow cytometry ([id number]) shows no monoclonal B-cell population or increase in blasts. 02/23/2023 4:35 PM CDT [facility] PATH[facility] Clinical History 82 year old woman with iron and vitamin B12 deficiency anemia. 02/23/2023 4:35 PM T [facility] PATH[facility] Materials Received Received are 20 slides and 3 blocks labeled [id number] along with a copy of the outside pathology report. The materials originate from [place] [address]. All original materials are returned to the referring institution, along with a copy of our final report. 02/23/2023 4:35 PM CDT [facility] Pathologist Location at [facility] 02/23/2023 4:35 PM CDT [facility] PATH[facility] Disclaimer The performance characteristics of all immunohistochemical and indirect immunofluorescence stains (if any) cited in this report were determined by the Histopathology Laboratory of [facility]. Some of these tests were developed by [...] attending (teaching) pathologist. 02/23/2023 4:35 PM T [facility] PATH[facility] Embedded Images 02/23/2023 4:35 PM CDT [facility] Pathology/Cytology BONE MARROW SPECIMEN / Unknown 02/22/2023 9:00 AM CDT 02/23/2023 3:41 PM CDT Miscellaneous samples (specimen) BONE MARROW SPECIMEN / Unknown 02/22/2023 9:00 AM CDT 02/23/2023 3:41 PM CDT us Sumeet Fox MD LAB - PATHOLOGY/CYTOLOGY ORDERAB LES Final Result [facility] [address] [place], [place] [address] [place] [address] documented in this encounter Visit Diagnoses Diagnosis Illness, unspecified documented in this encounter
--- OUTSIDE RECORDS SUMMARY | 2024-11-18 11:11 | XMS_ITS | Encounter Summary ---
Author Organization [facility] Address [address] [place] [address] Care Team Providers Care Checkout Supervisor Name Role Phone Herminio Ernst MD Unavailable Marcela VincentP- Unavailable [phone] Toby Monreal DO Primary Care Provider Herminio Staton DO Unavailable [phone] Encounter Details Date Type Department Care Team (Late st Contact Info) Description 03/10/2015 Abstract [facility] [address] [place] [address] Herminio Ernst MD [address] [place] [address] Social History Tobacco Use Types [...] on filedocumented in this encounter Care Teams Checkout Supervisor Relationship Specialty Start Date End Date Toby Monreal DO [address] [place] [address] PCP - General FAMILY PRACTICE 07/23/20 Herminio Ernst MD [address] [place] [address] CARDIOVASCULAR DISEASE 03/28/16 2 Marcel[facility] [address] [place] [address] NURSE PRACTITIONER 03/28/16 08/17/21 Herminio Staton DO [address] [place] [address] Consulting Physician CARDIOVASCULAR DISEASE 08/18/21 documented as of this encounter
--- OUTSIDE RECORDS SUMMARY | 2024-11-18 11:11 | XMS_ITS | Encounter Summary ---
Author Organization [facility] Address [address] [place] [address] Care Team Providers Care Camp Manager Name Role Phone Herminio Ernst MD Unavailable Marcela VincentNIDA Unavailable Toby Monreal DO Primary Care Provider [phone] Herminio Staton DO Unavailable [phone] Encounter Details Date Type Department Care Team (Late st Contact Info) Description 04/27/2016 Abstract [facility] [address] [place] [address] Marcela Vincent FNP-BC [address] [place] [address] Social History Tobacco Use Types [...] on filedocumented in this encounter Care Teams Camp Manager Relationship Specialty Start Date End Date Toby Monreal DO [address] [place] [address] PCP - General FAMILY PRACTICE 07/23/20 Herminio Ernst MD [address] [place] [address] CARDIOVASCULAR DISEASE 03/28/16 2 Marcela [facility] [address] [place] [address] NURSE PRACTITIONER 03/28/16 08/17/21 Herminio Staton DO [address] [place] [address] Consulting Physician CARDIOVASCULAR DISEASE 08/18/21 documented as of this encounter
--- OUTSIDE RECORDS SUMMARY | 2024-11-18 11:11 | XMS_ITS | Clinical Summary ---
Author Organization [facility] Address [address] [address] Care Team Providers Care Folding Machine Operator Name Role Phone Toby Monreal DO Primary Care Provider [phone] Allergies Active Allergy Reactions Criticality Noted Date [...] Encounters Date Type Department Care Team Description 11/05/2024 External Device Data [facility] ABSTRACTION Provider, Abstract 11/04/2024 External Device Data [facility] ABSTRACTION Provider, Abstract 10/09/2024 External Device Data [facility] ABSTRACTION Provider, Abstract 10/07/2024 External Device Data [facility] ABSTRACTION Provider, Abstract 09/17/2024 10:15 AM CDT Office Visit [facility] Oncology and Hematology - [place] [address] [place] [address] Nelson Ahumada MD Chronic anemia (Primary Dx) 09/17/2024 Orders Only [facility] Oncology and Hematology [facility] [address] [place] [address] Nelson Ahumada MD 09/10/2024 Telephone [facility] Oncology and Hematology - [place] [address] [place] [address] Nelson Ahumada MD Appointment Correction from Last 3 Months Family History Medical [...] Sign Reading Time Taken Comments Blood Pressure 116/70 09/17/2024 9:53 AM CDT Pulse 67 09/17/2024 9:53 AM CDT Temperature 35.8 C (96.5 F) 09/17/2024 9:53 AM CDT Respiratory Rate 15 09/17/2024 9:53 AM CDT Oxygen Saturation 95% 09/17/2024 9:53 AM CDT Inhaled Oxygen Concentration - - Weight 55.4 kg (122 lb 3.2 oz) 09/17/2024 9:53 A M CDT Height 157.5 cm (5' 2) 02/08/2022 10:05 AM CDT Body Mass Index 22.35 02/08/2022 10:05 AM CDT Plan of Treatment Upcoming Encounters Date Type Department Care Team (Late st Contact Info) Description 12/17/2024 2:15 PM CDT Office Visit [facility] Oncology and Hematology - [place] [address] [place] [address] Nelson Ahumada MD [address] [place] [address] Health Maintenance Due Date Last Done Comments DTAP/TDAP/TD VACCINES (1 - Tdap) 1957 PNEUMOCOCCAL VACCINE 50+ YEARS (1 of 1 - PCV) 03/12/19 88 ZOSTER VACCINE (1 of 2) 1988 RSV VACCINE (60+ or ) (1 - 1-dose 75+ series) 2013 OSTEOPOROSIS SCREENING 10/30/2023 10/29/2018 INFLUENZA VACCINE (#1) 2023 Procedures Procedure Name Priority Date/Time Associated Diagnosis Comments BASIC METABOLIC PANEL Routine 09/16/2024 9:09 AM CDT CBC MIXED CELL DIFFERENTIAL Routine 09/16/2024 9:01 AM CDT CBC MIXED CELL DIFFERENTIAL Routine 09/16/2024 8:39 AM CDT from Last 3 Months Results * BASIC METABOLIC PANEL (09/16/2024 9:09 AM CDT) Blood Nelson Ahumada MD CHEMISTRY ORDERABLES Final Resu lt * CBC MIXED CELL DIFFERENTIAL (09/16/2024 9:01 AM CDT) Only the most recent of2 resultswithin the time period is included. Blood Nelson Ahumada MD HEMATOLOGY ORDERABLES Final Res ult from Last 3 Months Insurance MEDICARE PART A AND B [facility] SUPP Member Subscriber Plan / Payer ( fective 2020-Present) Name:Gita Worthy Relation to Subscriber:Self Name:Gita Worthy Payer ID:Not on file Group ID:Not on file Type:Supplemental Address: [address] SUPP Care Teams Folding Machine Operator Relationship Specialty Start Date End Date Toby Monreal DO [address] [place] [address] PCP - General Family Practice 06/07/22
--- OUTSIDE RECORDS SUMMARY | 2024-11-18 11:11 | XMS_ITS | Clinical Summary ---
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 04/27/2016 Essential hypertension [...] Alive CAD, stent, PVD Father (Age 58) [place] Mother (Age 73) cancer Sister Alive diabetes [...] Comments Blood Pressure 138/72 04/07/2021 10:59 AM CORROSION CONTROL TECHNICIAN Pulse 62 04/07/2021 10:58 AM CORROSION CONTROL TECHNICIAN Temperature - - Respiratory Rate 18 04/07/2021 10:58 AM CORROSION CONTROL TECHNICIAN Oxygen Saturation 99% 04/07/2021 10:58 AM CORROSION CONTROL TECHNICIAN Inhaled Oxygen Concentration - - Weight 55.2 kg (121 lb 9.6 oz) 04/07/2021 10:58 AM CORROSION CONTROL TECHNICIAN Height 160 cm (5' 3) 04/07/2021 10:58 AM CORROSION CONTROL TECHNICIAN Body Mass Index 21.54 04/07/2021 10:58 AM CORROSION CONTROL TECHNICIAN Plan of Treatment Health Maintenance Due Date [...] Most Recently Relevant to Health Maintenance Insurance [facility] [id number] MEDICARE [facility] Care Teams Director Medical Affairs Relationship Specialty Start Date End Date Toby Monreal DO [address] [place] [address] PCP - General FAMILY PRACTICE 07/23/20
[2024-11-18 12:05] LABS: Cholesterol 150 mg/dL (0-200); HDL Direct 73 mg/dL; Triglycerides 103 mg/dL (<150)
[2024-11-18 12:23] LABS: Free T4 Free Thyroxine. 1.20 ng/dL (0.78-2.19)
[2024-11-18 12:37] LABS: Thyroid Stimulating Hormone 2.400 uIU/mL (0.465-4.680); Thyroid Stimulating Hormone Reflex 2.500 uIU/mL (0.465-4.68)
== END 2024-11-18 10:59 | disposition home or self-care (01) ==
PROVIDERS: PCP Family Medicine; Visit Provider Family Medicine
DX: E03.9 Hypothyroidism, unspecified (principal); E78.5 Hyperlipidemia, unspecified; D50.9 Iron deficiency anemia, unspecified
CPT/HCPCS: 36415; 80061; 84439; 84443

== ENCOUNTER 2024-12-15 14:22 | Outpatient (CLI) | payer MEDICARE, SELFPAY ==
--- OUTSIDE RECORDS SUMMARY | 2024-12-15 14:26 | XMS_ITS | Patient Health Record ---
Author Organization [facility] Address [address] [place], [place] [address] Care Team Providers Care Branch Administrator Name Role Phone ARSH DE LA VEGA Unavailable [phone] Adeel Napier Unavailable Unavailable Reason For Referral No Information Medications Medication SIG (Take, Route, Frequency, Duration) Notes Start Date End Date Status Lisinopril 10 MG Oral Tablet ORAL lisinopril 10 MG Oral TabletOriginal Medicationlisinopril 10 MG Oral Tablet *Reorder from [employer] for eRx and Interaction Alerts* 06/23/19 17 Active aspirin 81 MG Delayed Release Oral Tablet [Aspir-Low] ORAL aspirin 81 MG Delayed Release Oral Tablet [Aspir-Low]Original Medicationaspirin 81 MG Delayed Release Oral Tablet [Aspir-Low] *Reorder from [employer] for eRx and Interaction Alerts* 06/23/19 17 Active 24 HR hydrochlorothiazide 12.5 MG / metoprolol succinate 50 MG Extended Release Oral Tablet ORAL 24 HR hydrochlorothiazide 12.5 MG / metoprolol succinate 50 MG Extended Release Oral TabletOriginal [id number] HR hydrochlorothiazide 12.5 MG / metoprolol succinate 50 MG Extended Release Oral Tablet *Reorder 06/23/19 17 Active rosuvastatin calcium 40 MG Oral Tablet [Crestor] ORAL rosuvastatin calcium 40 MG Oral Tablet [Crestor]Original Medicationrosuvastatin calcium 40 MG Oral Tablet [Crestor] *Reorder from [employer] for eRx and Interaction Alerts* 06/23/19 17 Active meloxicam 7.5 MG Oral Tablet [Mobic] ORAL meloxicam 7.5 MG Oral Tablet [Mobic]Original Medicationmeloxicam 7.5 MG Oral Tablet [Mobic] *Reorder from [employer] for eRx and Interaction Alerts* 06/23/19 17 Active Plan Of Treatment No Information Insurance Providers Payer Name Payer Address Payer Phone Subscriber Number Group Number Insured Name Patient Relationship to Insured Coverage Start Date Coverage End Date Medicare Part B [facility] [address] [place] [address] [id number] CAMPBELL RUELAS Self - patient is the insured [employer] [address] [employer] [place] [id number] CAMPBELL RUELAS Self - patient is the insured
--- OUTSIDE RECORDS SUMMARY | 2024-12-15 14:26 | XMS_ITS | Clinical Summary ---
Author Organization [facility] Address [address] [place] [address] Care Team Providers Care Crusher Machine Operator Name Role Phone MeghannToby callejas Primary Care Provider [phone] Allergies Active Allergy Reactions Criticality Noted Date [...] Diagnosed Date Coronary artery disease invo lving [place] coronary artery of [place] heart without angina pectoris 04/27/2016 Essential hypertension [...] Alive CAD, stent, PVD Father (Age 58) [place] Mother (Age 73) cancer Sister Alive diabetes [...] Comments Blood Pressure 138/72 04/07/2021 10:59 AM PAGE DESIGNER Pulse 62 04/07/2021 10:58 AM PAGE DESIGNER Temperature - - Respiratory Rate 18 04/07/2021 10:58 AM PAGE DESIGNER Oxygen Saturation 99% 04/07/2021 10:58 AM PAGE DESIGNER Inhaled Oxygen Concentration - - Weight 55.2 kg (121 lb 9.6 oz) 04/07/2021 10:58 AM PAGE DESIGNER Height 160 cm (5' 3) 04/07/2021 10:58 AM PAGE DESIGNER Body Mass Index 21.54 04/07/2021 10:58 AM PAGE DESIGNER Plan of Treatment Health Maintenance Due Date [...] topic Meningococcal Vaccine Aged Out No [place] de[place] eligible based on patient's age to complete [...] Most Recently Relevant to Health Maintenance Insurance [facility] [place] [id number] MEDICARE [facility] Care Teams Crusher Machine Operator Relationship Specialty Start Date End Date Toby Monreal DO [address] [place] [address] PCP - General FAMILY PRACTICE 07/23/20
--- OUTSIDE RECORDS SUMMARY | 2024-12-15 14:26 | XMS_ITS | Encounter Summary ---
Author Organization [facility] Address [address] [place] [address] Care Team Providers Care Farmworker Field Crop Name Role Phone Herminio Ernst MD Unavailable Marcela VincentNIDA Unavailable [phone] Toby Monreal DO Primary Care Provider [phone] Herminio Staton DO Unavailable [phone] Encounter Details Date Type Department Care Team (Late st Contact Info) Description 04/27/2016 Abstract [facility] [address] [place] [address] Marcela Vincent FNP-BC [address] [place] [address] Social History Tobacco Use Types [...] on filedocumented in this encounter Care Teams Farmworker Field Crop Relationship Specialty Start Date End Date Toby Monreal DO [address] [place] [address] PCP - General FAMILY PRACTICE 07/23/20 Herminio Ernst MD [address] [place] [address] CARDIOVASCULAR DISEASE 03/28/16 2 [facility] [address] [place] [address] NURSE PRACTITIONER 03/28/16 08/17/21 Herminio Staton DO [address] [place] [address] Consulting Physician CARDIOVASCULAR DISEASE 08/18/21 documented as of this encounter
--- OUTSIDE RECORDS SUMMARY | 2024-12-15 14:26 | XMS_ITS | Encounter Summary ---
Author Organization [facility] Address [address] [place] [address] Care Team Providers Care Explosion Welder Name Role Phone Unavailable Primary Care Provider Unavailabl e Encounter Details Date Type Department Care Team (Late st Contact Info) Description 02/23/2023 Lab Requisition [facility] - Pathology Lab [address] [place] [address] Sumeet Fox MD [address] [address] Illness, unspecified Social History Tobacco [...] Report Bone Marrow Patholog y Report Case: [id number] Authorizing Provider: Sumeet Fox MD Collected: 02/22/2023 09:00 AM Ordering Location: [facility] Care Pathology Lab Received: 02/23/2023 03:41 [...] anemia - See description 02/23/2023 4:35 PM [facility] PATHOLOGY LAB at 1635 CDT AP Comment Overall, the bone marrow specimen is normocellular for age with maturing trilineage hematopoiesis and no evidence of lymphoma, a high-grade myeloid neoplasm, or significant dyspoiesis. Correlation with clinical findings and relevant cytogenetic/molecular testing is required. 02/23/2023 4:35 PM [facility] Peripheral Smear Description CBC Data: WBC - 6.1, Hgb - 10.7, MCV - 101.5, MCHC - 31.1, and Platelets - 210. Leukocyte number: normal. Granulocyte morphology: normal. Lymphocyte morphology: normal. Erythrocyte number: decreased. Erythrocyte morphology: macrocytic. Anisopoikilocytosis: mild. Polychromasia: mild. Platelet number: normal. Platelet morphology: normal. 02/23/2023 4:35 PM [facility] Bone Marrow Aspirate Differential [...] Control is appropriately reactive. 02/23/2023 4:35 PM [facility] Bone Marrow Core Biopsy [...] special stain): adequate. 02/23/2023 4:35 PM CDT [facility] Flow Cytometry Summary Concurrent flow cytometry ([id number]) shows no monoclonal B-cell population or increase in blasts. 02/23/2023 4:35 PM CDT [facility] PATH[facility] Clinical History 82 year old woman with iron and vitamin B12 deficiency anemia. 02/23/2023 4:35 PM T [facility] PATHOLOG[facility] Materials Received Received are 20 slides and 3 blocks labeled [id number] along with a copy of the outside pathology report. The materials originate from [place] [id number]. All original materials are returned to the referring institution, along with a copy of our final report. 02/23/2023 4:35 PM CDT [facility] Pathologist Location at [facility] 02/23/2023 4:35 PM CDT [facility] PATH[facility] Disclaimer The performance characteristics of all immunohistochemical and indirect immunofluorescence stains (if any) cited in this report were determined by the Histopathology Laboratory of [facility]. Some of these tests were developed [...] attending (teaching) pathologist. 02/23/2023 4:35 PM T [facility] PATH[facility] Embedded Images 02/23/2023 4:35 PM CDT [facility] Pathology/Cytology BONE MARROW SPECIMEN / Unknown 02/22/2023 9:00 AM CDT 02/23/2023 3:41 PM CDT Miscellaneous samples (specimen) BONE MARROW SPECIMEN / Unknown 02/22/2023 9:00 AM CDT 02/23/2023 3:41 PM CDT us Sumeet Fox MD LAB - PATHOLOGY/CYTOLOGY ORDERAB LES Final Result [facility] PATHOLOG[facility] LAB [address] [place], [place] [address] [place] [address] documented in this encounter Visit Diagnoses Diagnosis Illness, unspecified documented in this encounter
--- OUTSIDE RECORDS SUMMARY | 2024-12-15 14:26 | XMS_ITS | Clinical Summary ---
Author Organization [facility] Address [address] [place] [address] Care Team Providers Care Production Clerks Supervisor Name Role Phone Unavailable Primary Care Provider Unavailabl e Source Comments [facility] [employer],non-owned Affiliates and Associated Physician Practices is amultiple site organization consisting of ambulatory clinics and hospital sitesin [place], [place], [place] and [place]. This disclosure is being madepursuant to the Care Everywhere program and may not contain all information available regarding this patient. Last updated 18.[facility] [employer] Social History Tobacco Use Types Packs/Day Years [...] season) 2024 DEPRESSION SCREENING 05/21/2024 INFLUENZA VACCINE (#1) 2025 HEPATITIS B VACCINE Aged Out No [...]
--- OUTSIDE RECORDS SUMMARY | 2024-12-15 14:26 | XMS_ITS | Encounter Summary ---
Author Organization [facility] Address [address] [place] [address] Care Team Providers Care Forest Logistics Manager Name Role Phone Herminio Ernst MD Unavailable Marcela VincentP- Unavailable [phone] Toby Monreal DO Primary Care Provider [phone] Herminio Staton DO Unavailable [phone] Encounter Details Date Type Department Care Team (Late st Contact Info) Description 10/21/2020 [facility] [address] [place] [phone] Abstract, Doc [facility] Social History Tobacco Use [...] on filedocumented in this encounter Care Teams Forest Logistics Manager Relationship Specialty Start Date End Date Toby Monreal DO [address] [place] [address] PCP - General FAMILY PRACTICE 07/23/20 Herminio Ernst MD [address] [place] [address] CARDIOVASCULAR DISEASE 03/28/16 2 [facility] [address] [place] [address] NURSE PRACTITIONER 03/28/16 08/17/21 Herminio Staton DO [address] [place] [address] Consulting Physician CARDIOVASCULAR DISEASE 08/18/21 documented as of this encounter
--- OUTSIDE RECORDS SUMMARY | 2024-12-15 14:26 | XMS_ITS | Encounter Summary ---
Author Organization [facility] Address [address] [place] [address] Care Team Providers Care Science Faculty Member Name Role Phone Herminio Ernst MD Unavailable Marcela VincentP- Unavailable [phone] Toby Monreal DO Primary Care Provider Herminio Staton DO Unavailable [phone] Encounter Details Date Type Department Care Team (Late st Contact Info) Description 03/10/2015 Abstract [facility] [address] [place] [address] Herminio Ernst MD [address] [place] [address] Social History Tobacco Use Types [...] on filedocumented in this encounter Care Teams Science Faculty Member Relationship Specialty Start Date End Date Toby Monreal DO [address] [place] [address] PCP - General FAMILY PRACTICE 07/23/20 Herminio Ernst MD [address] [place] [address] CARDIOVASCULAR DISEASE 03/28/16 2 Marcela [facility] [address] [place] [address] NURSE PRACTITIONER 03/28/16 08/17/21 Herminio Staton DO [address] [place] [address] Consulting Physician CARDIOVASCULAR DISEASE 08/18/21 documented as of this encounter
--- OUTSIDE RECORDS SUMMARY | 2024-12-15 14:26 | XMS_ITS | Encounter Summary ---
Author Organization [facility] Address [address] [place] [place] [address] Care Team Providers Care Advanced Research Programs Director Name Role Phone Unavailable Primary Care Provider Unavailabl e Encounter Details Date Type Department Care Team (Late st Contact Info) Description 02/22/2023 Lab Requisition [facility] - Pathology Lab [address] [place] [address] Sumeet Fox MD [address] [address] Anemia in other chronic diseases [...] AM CDT) Case Report Flow Cytometry Case: [id number] Authorizing Provider: Sumeet Fox MD Collected: 02/22/2023 09:00 AM Ordering Location: [facility] Care Pathology Lab Received: 02/22/2023 01:29 PM Pathologist: Olga Esposito MD Specimen: Bone Marrow 02/22/2023 3:45 PM CDT [facility] PATHOLOGY LAB Final Diagnosis Bone marrow, flow cytometric immunophenotypic analysis: - No monoclonal B-cell population or increase in blasts detected - See interpretation 02/22/2023 3:45 PM [facility] PATHOLOGY LAB at 1545 CDT Flow Cytometry Interpretation Viability: 94% B-cells: polytypic, kappa:lambda ratio 1.7:1 Blasts: detected, 2.6% of events A bone marrow aspirate smear prepared from the flow cytometry specimen has been reviewed for clinical quality rn purposes. 02/22/2023 3:45 PM [facility] PATHOLOGY LAB Flow Cytometry Results Differential Result Comment Flow Cell Count /uL 24,800 Total Viability % 94.0 Lymphocytes % 9 Dim CD45 Region % 12 Monocytes % 10 Granulocytes % 70 02/22/2023 3:45 PM [facility] Reason for test Anemia in other chronic diseases classified elsewhere 02/22/2023 3:45 PM [facility] PATH[facility] Client Specimen ID # [id number] 02/22/2023 3:45 PM [facility] Number of markers 10 were performed. A-2 Flow CD10 A-3 Flow CD13 A-5 Flow CD20 A-1 Flow CD5 A-4 Flow CD19 A-6 Flow CD33 A-7 Flow CD34 A-8 Flow CD45 A-9 Grubbs+CD19+ A-10 Lambda+CD19+ 02/22/2023 3:45 PM [facility] Pathologist Location at [facility] 02/22/2023 3:45 PM [facility] Disclaimer Test performed at [facility], [address] [place] [address], [address]. *The established laboratory minimum viability is 70%. [...] high complexity clinical testing. 02/22/2023 3:45 PM [facility] PATH[facility] Embedded Images 3:45 PM [facility] Pathology/Cytolo gy BONE MARROW SPECIMEN / Unknown 02/22/2023 9:00 AM CDT 02/22/2023 1:29 PM CDT us Sumeet Fox MD LAB - PATHOLOGY/CYTOLOGY ORDERAB LES Final Result [facility] PATHOLOGY LAB [address] [place] [address], [facility] [phone] documented in this encounter Visit Diagnoses Diagnosis Anemia in other chronic diseases classified elsewhere documented in this encounter
--- OUTSIDE RECORDS SUMMARY | 2024-12-15 14:26 | XMS_ITS | Clinical Summary ---
Author Organization [facility] Address [address] [address] Care Team Providers Care Window Shade Ring Coverer Name Role Phone Toby Monreal DO Primary Care Provider [phone] Allergies Active Allergy Reactions Criticality Noted Date [...] Encounters Date Type Department Care Team Description 12/03/2024 External Device Data STL ABSTRACTION Provider, Abstract 12/03/2024 External Device Data STL ABSTRACTION Provider, Abstract 12/03/2024 External Device Data STL ABSTRACTION Provider, Abstract 12/02/2024 External Device Data STL ABSTRACTION Provider, Abstract 11/05/2024 External Device Data STL ABSTRACTION Provider, Abstract 11/04/2024 External Device Data STL ABSTRACTION Provider, Abstract 10/09/2024 External Device Data STL ABSTRACTION Provider, Abstract 10/07/2024 External Device Data STL ABSTRACTION Provider, Abstract 09/17/2024 10:15 AM CDT Office Visit [facility] Oncology and Hematology [facility] [address] [place] [address] Nelson Ahumada MD Chronic anemia (Primary Dx) 09/17/2024 Orders Only [facility] Oncology and Hematology [address] [place] [address] Nelson Ahumada MD from Last 3 Months Family History Medical [...] Description 12/17/2024 2:15 PM CDT Office Visit [facility] Oncology and Hematology - [place] [address] [facility] [address] [place] [address] Nelson Ahumada MD [address] [facility] [address] [place] [address] Health Maintenance Due Date Last Done Comments DTAP/TDAP/TD VACCINES (1 - Tdap) 1959 Traditional Medicare (ACO) Annual Wellness Visit 03/12 PNEUMOCOCCAL VACCINE 50+ YEARS (1 of 1 - PCV) 03/12/19 88 ZOSTER VACCINE (1 of 2) 1988 RSV VACCINE (60+ or ) (1 - 1-dose 75+ series) 2013 OSTEOPOROSIS SCREENING 10/30/2023 10/29/2018 INFLUENZA VACCINE (#1) 2024 Procedures Procedure Name Priority Date/Time Associated Diagnosis [...] Months Insurance MEDICARE PART A AND B [facility] [place] [address] [facility] Care Teams Window Shade Ring Coverer Relationship Specialty Start Date End Date Toby Monreal DO [address] [place] [address] PCP - General Family Practice 06/07/22
[2024-12-15 14:45] LABS: Hematocrit 38.1 % (35.0-42.0); Hemoglobin 12.6 g/dL (11.7-13.8); Mean Corpuscular HGB Conc 33.1 g/dL (32-36); Mean Corpuscular Hemoglobin 31.5 pg (27.0-31.0); Mean Corpuscular Volume 95.3 fL (78.0-102.0); Platelet Count Result 183 K/mm3 (150-420); Red Blood Count 4.00 M/mm3 (4.20-5.40); White Blood Count 6.2 K/mm3 (4.8-10.8)
[2024-12-15 15:32] LABS: Anion Gap 5 mmol/L (4-12); Blood Urea Nitrogen 21 mg/dL (7-17); Calcium 9.0 mg/dL (8.4-10.2); Carbon Dioxide 32 mmol/L (22-30); Chloride 99 mmol/L (98-107); Estimated Glomerular Filt Rate 44; Glucose 111 mg/dL (65-110); Iron 74 ug/dL (37-170); Osmolality Calculated 286 mOsm/kg (285-295); Potassium 3.9 mmol/L (3.4-5.0); Sodium 136 mmol/L (137-145)
[2024-12-15 15:41] LABS: Percent Iron Saturation 28 % (20-50)
[2024-12-15 16:07] LABS: Ferritin 205.00 ng/mL (11.1-264)
[2024-12-15 16:38] LABS: Vitamin B12 760.0 pg/mL (239-931)
== END 2024-12-15 14:23 | disposition home or self-care (01) ==
LOC: CHSLAB 14:24
PROVIDERS: PCP Family Medicine; Visit Provider Internal Medicine Hematology & Oncology
DX: D64.9 Anemia, unspecified (principal)
CPT/HCPCS: 36415; 80048; 82607; 82728; 82746; 83540; 83550; 85027

== ENCOUNTER 2025-01-07 11:43 | Outpatient (CLI) | payer MEDICARE, SELFPAY ==
--- OUTSIDE RECORDS SUMMARY | 2025-01-07 12:10 | XMS_ITS | Clinical Summary ---
Author Organization [facility] Address [address] [place] [address] Care Team Providers Care Internal Combustion Engine Inspector Name Role Phone Unavailable Primary Care Provider Unavailabl e Source Comments [facility] [employer],non-owned Affiliates and Associated Physician Practices is amultiple site organization consisting of ambulatory clinics and hospital sitesin [place], [place], [place] and [place]. This disclosure is being madepursuant to the Care Everywhere program and may not contain all information available regarding this patient. Last updated 18.[facility] [employer] Social History Tobacco Use Types Packs/Day Years [...] age to complete [place] [address] MEDICARE
--- OUTSIDE RECORDS SUMMARY | 2025-01-07 12:10 | XMS_ITS | Clinical Summary ---
Author Organization [facility] Mehran Hernandez Address [address] [place] [address] Care Team Providers Care Corrective Therapist Name Role Phone Toby Monreal DO Primary Care Provider [phone] Allergies Active Allergy Reactions Criticality Noted Date [...] Encounters Date Type Department Care Team Description 01/06/2025 External Device Data STL ABSTRACTION Provider, Abstract 12/24/2024 External Device Data STL ABSTRACTION Provider, Abstract 12/17/2024 2:15 PM CDT Office Visit [facility] Oncology and Hematology - [place] [place] [address] Nelson Ahumada MD Chronic anemia (Primary Dx) 12/17/2024 Orders Only [facility] Oncology and Hematology - [place] [place] [address] Nelson Ahumada MD 12/03/2024 External Device Data STL ABSTRACTION Provider, [...] Sign Reading Time Taken Comments Blood Pressure 101/60 12/17/2024 1:45 PM CDT Pulse 71 12/17/2024 1:45 PM CDT Temperature 36.2 C (97.2 F) 12/17/2024 1:45 PM CDT Respiratory Rate 15 12/17/2024 1:45 PM CDT Oxygen Saturation 96% 12/17/2024 1:45 PM CDT Inhaled Oxygen Concentration - - Weight 54.7 kg (120 lb 9.6 oz) 12/17/2024 1:45 P M CDT Height 157.5 cm (5' 2) 02/08/2022 10:05 AM CDT Body Mass Index 22.06 02/08/2022 10:05 AM CDT Plan of Treatment Upcoming Encounters Date Type Department Care Team (Late st Contact Info) Description 09/17/2025 10:00 AM CDT Office Visit [facility] Oncology and Hematology - [place] [address] [place] [address] Nelson Ahumada MD [address] [facility] [address] [place] [address] Health Maintenance Due Date Last Done Comments DTAP/TDAP/TD VACCINES (1 - Tdap) 1957 PNEUMOCOCCAL VACCINE 50+ YEARS (1 of 1 - PCV) 03/12/19 88 ZOSTER VACCINE (1 of 2) 1988 RSV VACCINE (60+ or ) (1 - 1-dose 75+ series) 2013 OSTEOPOROSIS SCREENING 10/30/2023 10/29/2018 INFLUENZA VACCINE (#1) 2024 Procedures Procedure Name Priority Date/Time Associated Diagnosis Comments COMPREHENSIVE METABOLIC PANEL Routine 12/15/2024 11:43 AM CDT COMPREHENSIVE METABOLIC PANEL Routine 12/15/2024 11:28 AM CDT CBC WITH AUTODIFFERENTIAL Routine 2024 11:24 AM CDT from Last 3 Months Results * COMPREHENSIVE METABOLIC PANEL (12/15/2024 11:43 AM CDT) Only the most recent of2 resultswithin the time period is included. Blood Nelson Ahumada MD CHEMISTRY ORDERABLES Final Resu lt * CBC WITH AUTODIFFERENTIAL (12/15/2024 11:24 AM CDT) Blood Nelson Ahumada MD HEMATOLOGY ORDERABLES Final Res ult from Last 3 Months Insurance MEDICARE PART A AND B [facility] SUPP SUPP Care Teams Corrective Therapist Relationship Specialty Start Date End Date Toby Monreal DO [address] [place] [address] PCP - General Family Practice 06/07/22
--- OUTSIDE RECORDS SUMMARY | 2025-01-07 12:10 | XMS_ITS | Encounter Summary ---
Author Organization [facility] Address [address] [place] [address] Care Team Providers Care Pump Operator Name Role Phone Unavailable Primary Care Provider Unavailabl e Encounter Details Date Type Department Care Team (Late st Contact Info) Description 02/23/2023 Lab Requisition [facility] - Pathology Lab [address] [place] [address] Sumeet Fox MD [address] [address] Illness, unspecified Social History Tobacco [...] Report Bone Marrow Patholog y Report Case: [id number] Authorizing Provider: Sumeet Fox MD Collected: 02/22/2023 09:00 AM Ordering Location: [facility] Care Pathology Lab Received: 02/23/2023 03:41 PM [...] anemia - See description 02/23/2023 4:35 PM [facility] PATHOLOGY LAB at 1635 CDT AP Comment Overall, the bone marrow specimen is normocellular for age with maturing trilineage hematopoiesis and no evidence of lymphoma, a high-grade myeloid neoplasm, or significant dyspoiesis. Correlation with clinical findings and relevant cytogenetic/molecular testing is required. 02/23/2023 4:35 PM [facility] Peripheral Smear Description CBC Data: WBC - 6.1, Hgb - 10.7, MCV - 101.5, MCHC - 31.1, and Platelets - 210. Leukocyte number: normal. Granulocyte morphology: normal. Lymphocyte morphology: normal. Erythrocyte number: decreased. Erythrocyte morphology: macrocytic. Anisopoikilocytosis: mild. Polychromasia: mild. Platelet number: normal. Platelet morphology: normal. 02/23/2023 4:35 PM [facility] Bone Marrow Aspirate [...] Control is appropriately reactive. 02/23/2023 4:35 PM [facility] Bone Marrow Core [...] special stain): adequate. 02/23/2023 4:35 PM CDT [facility] Flow Cytometry Summary Concurrent flow cytometry ([id number]) shows no monoclonal B-cell population or increase in blasts. 02/23/2023 4:35 PM CDT [facility] Clinical History 82 year old woman with iron and vitamin B12 deficiency anemia. 02/23/2023 4:35 PM T [facility] PATHOLOGY [facility] Materials Received Received are 20 slides and 3 blocks labeled [id number] along with a copy of the outside pathology report. The materials originate from [place] [id number]. All original materials are returned to the referring institution, along with a copy of our final report. 02/23/2023 4:35 PM CDT [facility] PATH[facility] Pathologist Location at [facility] 02/23/2023 4:35 PM CDT [facility] Disclaimer The performance characteristics of all immunohistochemical and indirect immunofluorescence stains (if any) cited in this report were determined by the Histopathology Laboratory of [facility]. Some of these tests were developed by [...] attending (teaching) pathologist. 02/23/2023 4:35 PM T [facility] PATHOLOGY [facility] Embedded Images 02/23/2023 4:35 PM CDT [facility] Pathology/Cytology BONE MARROW SPECIMEN / Unknown 02/22/2023 9:00 AM CDT 02/23/2023 3:41 PM CDT Miscellaneous samples (specimen) BONE MARROW SPECIMEN / Unknown 02/22/2023 9:00 AM CDT 02/23/2023 3:41 PM CDT us Sumeet Fox MD LAB - PATHOLOGY/CYTOLOGY ORDERAB LES Final Result [facility] [address] [place], [place] [address] [place] [address] documented in this encounter Visit Diagnoses Diagnosis Illness, unspecified documented in this encounter
--- OUTSIDE RECORDS SUMMARY | 2025-01-07 12:10 | XMS_ITS | Encounter Summary ---
Author Organization [facility] Address [address] [place] [address] Care Team Providers Care Caul Puller Name Role Phone Toby Monreal DO Primary Care Provider [phone] Encounter Details Date Type Department Care Team (Late Contact Info) Description 01/06/2025 External Device Data [facility] ABSTRACTION Provider, Abstract NO ADDRESS ON FILE Social History Tobacco Use Types Packs/Day Years Used Date Smoking Tobacco: Former Cigarettes 0.5 15 0 05/21/1984 - 05/21/1999 Smokeless Tobacco: Never Alcohol Use Standard Drinks/Week Comments Never 0 (1 standard drink = 0.6 oz pur e alcohol) Comments No Sex and Gender Information Value Date Recorded Sex Assigned at Not on file Legal Sex Female 2:15 PM CDT Gender Identity Not on file Sexual Orientation Not on file documented as of this encounter Plan of Treatment Upcoming Encounters Date Type Department Care Team (Late Contact Info) Description 09/17/2025 10:00 AM CDT Office Visit [facility] Oncology and Hematology - [place] [address] [facility] [address] [place] [address] Nelson Ahumada MD [address] [facility] [address] [place] [address] documented as of this encounter Visit Diagnoses Not on filedocumented in this encounter Care Teams Caul Puller Relationship Specialty Start Date End Date Toby Monreal DO [address] [place] [phone] PCP - General Family Practice 06/07/22 documented as of this encounter
--- OUTSIDE RECORDS SUMMARY | 2025-01-07 12:10 | XMS_ITS | Encounter Summary ---
Author Organization [facility] Address [address] [place] [address] Care Team Providers Care Eligibility Technician Name Role Phone Unavailable Primary Care Provider Unavailabl e Encounter Details Date Type Department Care Team (Late st Contact Info) Description 02/22/2023 Lab Requisition [facility] - Pathology Lab [address] [place] [id number] Sumeet Fox MD [address] [address] Anemia in other chronic diseases [...] AM CDT) Case Report Flow Cytometry Case: [id number] Authorizing Provider: Sumeet Fox MD Collected: 02/22/2023 09:00 AM Ordering Location: [facility] Pathology Lab Received: 02/22/2023 01:29 PM Pathologist: Olga Esposito MD Specimen: Bone Marrow 02/22/2023 3:45 PM CDT U PATHOLOGY LAB Final Diagnosis Bone marrow, flow cytometric immunophenotypic analysis: - No monoclonal B-cell population or increase in blasts detected - See interpretation 02/22/2023 3:45 PM [facility] PATHOLOGY LAB at 1545 CDT Flow Cytometry Interpretation Viability: 94% B-cells: polytypic, kappa:lambda ratio 1.7:1 Blasts: detected, 2.6% of events A bone marrow aspirate smear prepared from the flow cytometry specimen has been reviewed for compliance quality performance analyst purposes. 02/22/2023 3:45 PM [facility] PATHOLOGY LAB Flow Cytometry Results Differential Result Comment Flow Cell Count /uL 24,800 Total Viability % 94.0 Lymphocytes % 9 Dim CD45 Region % 12 Monocytes % 10 Granulocytes % 70 02/22/2023 3:45 PM [facility] Reason for test Anemia in other chronic diseases classified elsewhere 02/22/2023 3:45 PM [facility] PATHOLOG[facility] LAB Client Specimen ID # [id number] 02/22/2023 3:45 PM [facility] PATHOLOGY LAB Number of markers 10 were performed. A-2 Flow CD10 A-3 Flow CD13 A-5 Flow CD20 A-1 Flow CD5 A-4 Flow CD19 A-6 Flow CD33 A-7 Flow CD34 A-8 Flow CD45 A-9 [place]+CD19+ A-10 Lambda+CD19+ 02/22/2023 3:45 PM [facility] Pathologist Location at [facility] 02/22/2023 3:45 PM [facility] Disclaimer Test performed at [facility], [address] [place] [address], [address]. *The established laboratory minimum viability is 70%. [...] high complexity clinical testing. 02/22/2023 3:45 PM [facility] PATHOLOG[facility] LAB Embedded Images 3:45 PM [facility] PATHOLOGY LAB Pathology/Cytolo gy BONE MARROW SPECIMEN / Unknown 02/22/2023 9:00 AM CDT 02/22/2023 1:29 PM CDT us Sumeet Fox MD LAB - PATHOLOGY/CYTOLOGY ORDERAB LES Final Result [facility] PATHOLOGY LAB [address] [place] [address], [facility] [phone] documented in this encounter Visit Diagnoses Diagnosis Anemia in other chronic diseases classified elsewhere documented in this encounter
--- OUTSIDE RECORDS SUMMARY | 2025-01-07 12:10 | XMS_ITS | Encounter Summary ---
Author Organization [facility] Address [address] [place] [address] Care Team Providers Care Conference Producer Name Role Phone Herminio Ernst MD Unavailable Marcela VincentNIDA Unavailable Toby Monreal DO Primary Care Provider [phone] Herminio Staton DO Unavailable [phone] Encounter Details Date Type Department Care Team (Late st Contact Info) Description 04/27/2016 Abstract [facility] [address] [place] [address] Marcela Vincent FNP-BC [address] [place] [address] Social History Tobacco Use Types [...] on filedocumented in this encounter Care Teams Conference Producer Relationship Specialty Start Date End Date Toby Monreal DO [address] [place] [address] PCP - General FAMILY PRACTICE 07/23/20 Herminio Ernst MD [address] [place] [address] CARDIOVASCULAR DISEASE 03/28/16 2 [facility] [address] [place] [address] NURSE PRACTITIONER 03/28/16 08/17/21 Herminio Staton DO [address] [place] [address] Consulting Physician CARDIOVASCULAR DISEASE 08/18/21 documented as of this encounter
--- OUTSIDE RECORDS SUMMARY | 2025-01-07 12:10 | XMS_ITS | Encounter Summary ---
Author Organization [facility] Address [address] [place] [address] Care Team Providers Care Pairing Machine Operator Name Role Phone Herminio Ernst MD Unavailable Marcela VincentP- Unavailable Toby Monreal DO Primary Care Provider [phone] Herminio Staton DO Unavailable [phone] Encounter Details Date Type Department Care Team (Late st Contact Info) Description 10/21/2020 [facility] [address] [place] [address] Abstract, Doc Prevea Social History Tobacco Use [...] on filedocumented in this encounter Care Teams Pairing Machine Operator Relationship Specialty Start Date End Date Toby Monreal DO [address] [place] [address] PCP - General FAMILY PRACTICE 07/23/20 Herminio Ernst MD [address] [place] [address] CARDIOVASCULAR DISEASE 03/28/16 2 Marcela [facility] [address] [place] [address] NURSE PRACTITIONER 03/28/16 08/17/21 Herminio Staton DO [address] [place] [address] Consulting Physician CARDIOVASCULAR DISEASE 08/18/21 documented as of this encounter
--- OUTSIDE RECORDS SUMMARY | 2025-01-07 12:10 | XMS_ITS | Encounter Summary ---
Author Organization [facility] Address [address] [place] [address] Care Team Providers Care Merchandise Planning Manager Name Role Phone Herminio Ernst MD Unavailable Marcela VincentP- Unavailable [phone] Toby Monreal DO Primary Care Provider [phone] Herminio Staton DO Unavailable [phone] Encounter Details Date Type Department Care Team (Late st Contact Info) Description 03/10/2015 Abstract [facility] [address] [place] [address] Herminio Ernst MD [address] [place] [address] Social History Tobacco Use Types [...] on filedocumented in this encounter Care Teams Merchandise Planning Manager Relationship Specialty Start Date End Date Toby Monreal DO [address] [place] [address] PCP - General FAMILY PRACTICE 07/23/20 Herminio Ernst MD [address] [place] [address] CARDIOVASCULAR DISEASE 03/28/16 2 Marcela [facility] [address] [place] [address] NURSE PRACTITIONER 03/28/16 08/17/21 Herminio Staton DO [address] [place] [address] Consulting Physician CARDIOVASCULAR DISEASE 08/18/21 documented as of this encounter
--- OUTSIDE RECORDS SUMMARY | 2025-01-07 12:10 | XMS_ITS | Patient Health Record ---
Author Organization [facility] Address [address] [place], [place] [address] Care Team Providers Care Cash Specialist Name Role Phone ARSH DE LA VEGA Unavailable [phone] Adeel Napier Unavailable Unavailable Reason For Referral No Information Medications Medication SIG (Take, Route, Frequency, Duration) Notes Start Date End Date Status Lisinopril 10 MG Oral Tablet ORAL lisinopril 10 MG Oral TabletOriginal Medicationlisinopril 10 MG Oral Tablet *Reorder from NewsCrafted for eRx and Interaction Alerts* 06/23/19 17 Active aspirin 81 MG Delayed Release Oral Tablet [Aspir-Low] ORAL aspirin 81 MG Delayed Release Oral Tablet [Aspir-Low]Original Medicationaspirin 81 MG Delayed Release Oral Tablet [Aspir-Low] *Reorder from NewsCrafted for eRx and Interaction Alerts* 06/23/19 17 Active 24 HR hydrochlorothiazide 12.5 MG / metoprolol succinate 50 MG Extended Release Oral Tablet ORAL 24 HR hydrochlorothiazide 12.5 MG / metoprolol succinate 50 MG Extended Release Oral TabletOriginal [id number] HR hydrochlorothiazide 12.5 MG / metoprolol succinate 50 MG Extended Release Oral Tablet *Reorder 06/23/19 17 Active rosuvastatin calcium 40 MG Oral Tablet [Crestor] ORAL rosuvastatin calcium 40 MG Oral Tablet [Crestor]Original Medicationrosuvastatin calcium 40 MG Oral Tablet [Crestor] *Reorder from NewsCrafted for eRx and Interaction Alerts* 06/23/19 17 Active meloxicam 7.5 MG Oral Tablet [Mobic] ORAL meloxicam 7.5 MG Oral Tablet [Mobic]Original Medicationmeloxicam 7.5 MG Oral Tablet [Mobic] *Reorder from NewsCrafted for eRx and Interaction Alerts* 06/23/19 17 Active Plan Of Treatment No Information Insurance Providers Payer Name Payer Address Payer Phone Subscriber Number Group Number Insured Name Patient Relationship to Insured Coverage Start Date Coverage End Date Medicare Part B [facility] [address] [place] [address] [id number] CAMPBELL RUELAS Self - patient is the insured [place] [employer] [address] [employer] [place] [id number] CAMPBELL RUELAS Self - patient is the insured
--- OUTSIDE RECORDS SUMMARY | 2025-01-07 12:10 | XMS_ITS | Clinical Summary ---
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 04/27/2016 Essential hypertension [...] Alive CAD, stent, PVD Father (Age 58) [place] Mother (Age 73) cancer Sister Alive diabetes [...] Comments Blood Pressure 138/72 04/07/2021 10:59 AM TUBE CUTTER Pulse 62 04/07/2021 10:58 AM TUBE CUTTER Temperature - - Respiratory Rate 18 04/07/2021 10:58 AM TUBE CUTTER Oxygen Saturation 99% 04/07/2021 10:58 AM TUBE CUTTER Inhaled Oxygen Concentration - - Weight 55.2 kg (121 lb 9.6 oz) 04/07/2021 10:58 AM TUBE CUTTER Height 160 cm (5' 3) 04/07/2021 10:58 AM TUBE CUTTER Body Mass Index 21.54 04/07/2021 10:58 AM TUBE CUTTER Plan of Treatment Health Maintenance Due Date [...] Most Recently Relevant to Health Maintenance Insurance [facility] [place] [address] [place] [address] [place] [phone] MEDICARE [facility] Care Teams Research Program Intern Relationship Specialty Start Date End Date Toby Monreal DO [address] [place] [address] PCP - General FAMILY PRACTICE 07/23/20
== END 2025-01-07 11:44 | disposition home or self-care (01) ==
LOC: ANHAUDASC 11:44
PROVIDERS: PCP Family Medicine; Visit Provider Family Medicine
DX: H90.3 Sensorineural hearing loss, bilateral (principal)
CPT/HCPCS: 92557; 92567

== ENCOUNTER 2025-03-13 13:42 | Outpatient (CLI) | payer MEDICARE, SELFPAY ==
--- NOTE | ~2025-03-13 | MM_ITS ---
EXAMINATION: MM screening bennett BI w frank HISTORY: Screening TECHNIQUE: Craniocaudal and mediolateral oblique 3-D tomosynthesis images were obtained and synthetic 2-D images were generated. CAD analysis was submitted and interpreted. COMPARISON: Comparison to multiple prior studies sequentially, with oldest reviewed study dated 02/17/2020. BREAST PARENCHYMAL COMPOSITION: There are scattered areas of fibroglandular density. FINDINGS: There is no evidence of suspicious mass, calcification, or architectural distortion to suggest malignancy in either breast. There has been no suspicious interval change. IMPRESSION: 1. No mammographic evidence of malignancy. 2. Recommend routine screening mammography in one year. BI-RADS Category 1: Negative Reviewed, dictated and finalized at location O.
--- OUTSIDE RECORDS SUMMARY | 2025-03-13 13:47 | XMS_ITS | Encounter Summary ---
Author Organization [facility] Address [address] [place] [address] Care Team Providers Care Event Av Operator Name Role Phone Herminio Ernst MD Unavailable Marcela VincentP- Unavailable [phone] Toby Monreal DO Primary Care Provider [phone] Herminio Staton DO Unavailable [phone] Encounter Details Date Type Department Care Team (Late st Contact Info) Description 10/21/2020 [facility] [address] [place] [address] Abstract, Doc Prevea Social History Tobacco Use [...] on filedocumented in this encounter Care Teams Event Av Operator Relationship Specialty Start Date End Date Toby Monreal DO [address] [place] [address] PCP - General FAMILY PRACTICE 07/23/20 Herminio Ernst MD [address] [place] [address] CARDIOVASCULAR DISEASE 03/28/16 2 Marcela [facility] [address] [place] [address] NURSE PRACTITIONER 03/28/16 08/17/21 Herminio Staton DO [address] [place] [address] Consulting Physician CARDIOVASCULAR DISEASE 08/18/21 documented as of this encounter
--- OUTSIDE RECORDS SUMMARY | 2025-03-13 13:47 | XMS_ITS | Clinical Summary ---
Author Organization [facility] Address [address] [place] [address] Care Team Providers Care Life Insurance Salesperson Name Role Phone Unavailable Primary Care Provider Unavailabl e Source Comments [facility],non-owned Affiliates and Associated Physician Practices is amultiple site organization consisting of ambulatory clinics and hospital sitesin [place], [place], [place] and [place]. This disclosure is being madepursuant to the Care Everywhere program and may not contain all information available regarding this patient. Last updated 18.[facility] Social History Tobacco Use Types Packs/Day Years [...] yrs (1 - 1-dose 75+ series) 2013 DEPRESSION SCREENING 05/21/2024 COVID-19 VACCINE ( - 2023-2 5 season) 2025 INFLUENZA VACCINE (#1) 2025 HEPATITIS B VACCINE [...]
--- OUTSIDE RECORDS SUMMARY | 2025-03-13 13:47 | XMS_ITS | Encounter Summary ---
Author Organization [facility] Address [address] [facility] [place] [address] Care Team Providers Care Genetic Engineer Name Role Phone Unavailable Primary Care Provider Unavailabl e Encounter Details Date Type Department Care Team (Late st Contact Info) Description 02/22/2023 Lab Requisition [facility] - Pathology Lab [address] [place] [address] Sumeet Fox MD [address] [address] Anemia in other chronic diseases [...] AM CDT) Case Report Flow Cytometry Case: [id number] Authorizing Provider: Sumeet Fox MD Collected: 02/22/2023 09:00 AM Ordering Location: [facility] Pathology Lab Received: 02/22/2023 01:29 PM Pathologist: Olga Esposito MD Specimen: Bone Marrow 02/22/2023 3:45 PM CDT U PATHOLOGY LAB Final Diagnosis Bone marrow, flow cytometric immunophenotypic analysis: - No monoclonal B-cell population or increase in blasts detected - See interpretation 02/22/2023 3:45 PM [facility] PATHOLOGY LAB at 1545 CDT Flow Cytometry Interpretation Viability: 94% B-cells: polytypic, kappa:lambda ratio 1.7:1 Blasts: detected, 2.6% of events A bone marrow aspirate smear prepared from the flow cytometry specimen has been reviewed for supervisor vendor quality purposes. 02/22/2023 3:45 PM [facility] PATHOLOGY LAB Flow Cytometry Results Differential Result Comment Flow Cell Count /uL 24,800 Total Viability % 94.0 Lymphocytes % 9 Dim CD45 Region % 12 Monocytes % 10 Granulocytes % 70 02/22/2023 3:45 PM [facility] Reason for test Anemia in other chronic diseases classified elsewhere 02/22/2023 3:45 PM [facility] PATHOLOGY LAB Client Specimen ID # [id number] 02/22/2023 3:45 PM [facility] PATHOLOGY LAB Number of markers 10 were performed. A-2 Flow CD10 A-3 Flow CD13 A-5 Flow CD20 A-1 Flow CD5 A-4 Flow CD19 A-6 Flow CD33 A-7 Flow CD34 A-8 Flow CD45 A-9 [place]+CD19+ A-10 Lambda+CD19+ 02/22/2023 3:45 PM [facility] Pathologist Location at [facility] 02/22/2023 3:45 PM [facility] Disclaimer Test performed at [facility], [address] [place] [address], [address]. *The established laboratory minimum viability is 70%. [...] high complexity clinical testing. 02/22/2023 3:45 PM [facility] PATHOLOGY LAB Embedded Images 3:45 PM [facility] PATHOLOGY LAB Pathology/Cytolo gy BONE MARROW SPECIMEN / Unknown 02/22/2023 9:00 AM CDT 02/22/2023 1:29 PM CDT us Sumeet Fox MD LAB - PATHOLOGY/CYTOLOGY ORDERAB LES Final Result [facility] PATHOLOGY LAB [address] [place] [address], [facility] [phone] documented in this encounter Visit Diagnoses Diagnosis Anemia in other chronic diseases classified elsewhere documented in this encounter
--- OUTSIDE RECORDS SUMMARY | 2025-03-13 13:47 | XMS_ITS | Encounter Summary ---
Author Organization [facility] Address [address] [place] [address] Care Team Providers Care Assembly Line Machine Operator Name Role Phone Herminio Ernst MD Unavailable Marcela VincentP- Unavailable [phone] Toby Monreal DO Primary Care Provider Herminio Staton DO Unavailable [phone] Encounter Details Date Type Department Care Team (Late st Contact Info) Description 03/10/2015 Abstract [facility] [address] [place] [address] Herminio Ernst MD [address] [place] [address] Social History Tobacco Use Types [...] on filedocumented in this encounter Care Teams Assembly Line Machine Operator Relationship Specialty Start Date End Date Toby Monreal DO [address] [place] [address] PCP - General FAMILY PRACTICE 07/23/20 Herminio Ernst MD [address] [place] [address] CARDIOVASCULAR DISEASE 03/28/16 2 Marcela Vincent [facility] [address] [place] [address] NURSE PRACTITIONER 03/28/16 08/17/21 Herminio Staton DO [address] [place] [address] Consulting Physician CARDIOVASCULAR DISEASE 08/18/21 documented as of this encounter
--- OUTSIDE RECORDS SUMMARY | 2025-03-13 13:47 | XMS_ITS | Clinical Summary ---
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 (04/28/2016): treated with thrombolytic therapy Family History Medical History Relation Comments Heart Attack Brother 1 Stroke Brother 1 Stent Cardiac Brother 2 Heart Attack Father Diabetes Sister Relation Status Comments Brother 1 (Age 83) lung cancer, M I, stroke Brother 2 Alive CAD, stent, PVD Father (Age 58) [place] Mother (Age 73) cancer Sister Alive diabetes [...] Comments Blood Pressure 138/72 04/07/2021 10:59 AM SHOW OPERATIONS SUPERVISOR Pulse 62 04/07/2021 10:58 AM SHOW OPERATIONS SUPERVISOR Temperature - - Respiratory Rate 18 04/07/2021 10:58 AM SHOW OPERATIONS SUPERVISOR Oxygen Saturation 99% 04/07/2021 10:58 AM SHOW OPERATIONS SUPERVISOR Inhaled Oxygen Concentration - - Weight 55.2 kg (121 lb 9.6 oz) 04/07/2021 10:58 AM SHOW OPERATIONS SUPERVISOR Height 160 cm (5' 3) 04/07/2021 10:58 AM SHOW OPERATIONS SUPERVISOR Body Mass Index 21.54 04/07/2021 10:58 AM SHOW OPERATIONS SUPERVISOR Plan of Treatment Health Maintenance Due Date [...] 05/31/2018, 04/24/2016, 02/26/2015 COVID-19 Vaccine (3 - 2024-2 6 season) 2025 06/15/2020, 05/18/2020 Influenza Adult (#1) 2025 Hepatitis A Vaccines Aged Out No long er eligible based on patient's age to complete this topic Meningococcal B Vaccine Aged Out No l [...] Most Recently Relevant to Health Maintenance Insurance [facility] MEDICARE MEDICARE [facility] Care Teams Biochemistry Technologist Relationship Specialty Start Date End Date Toby Monreal DO [address] [place] [address] PCP - General FAMILY PRACTICE 07/23/20
--- OUTSIDE RECORDS SUMMARY | 2025-03-13 13:47 | XMS_ITS | Encounter Summary ---
Author Organization [facility] Address [address] [place] [address] Care Team Providers Care Snack Bar Attendant Name Role Phone Herminio Ernst MD Unavailable Marcela VincentNIDA Unavailable Toby Monreal DO Primary Care Provider [phone] Herminio Staton DO Unavailable [phone] Encounter Details Date Type Department Care Team (Late st Contact Info) Description 04/27/2016 Abstract [facility] [address] [place] [address] Marcela Vincent FNP-BC [address] [place] [address] Social History Tobacco Use Types [...] on filedocumented in this encounter Care Teams Snack Bar Attendant Relationship Specialty Start Date End Date Toby Monreal DO [address] [place] [address] PCP - General FAMILY PRACTICE 07/23/20 Herminio Ernst MD [address] [place] [address] CARDIOVASCULAR DISEASE 03/28/16 2 Marcela [facility] [address] [place] [address] NURSE PRACTITIONER 03/28/16 08/17/21 Herminio Staton DO [address] [place] [address] Consulting Physician CARDIOVASCULAR DISEASE 08/18/21 documented as of this encounter
--- OUTSIDE RECORDS SUMMARY | 2025-03-13 13:47 | XMS_ITS | Patient Health Record ---
Author Organization [facility] Address [address] [place], [place] [address] Care Team Providers Care Cloud Engineer Name Role Phone ARSH DE LA VEGA Unavailable [phone] Adeel Napier Unavailable Unavailable Reason For Referral No Information Medications Medication SIG (Take, Route, Frequency, Duration) Notes Start Date End Date Status Lisinopril 10 MG Oral Tablet ORAL lisinopril 10 MG Oral TabletOriginal Medicationlisinopril 10 MG Oral Tablet *Reorder from Hello Chair for eRx and Interaction Alerts* 06/23/19 17 Active aspirin 81 MG Delayed Release Oral Tablet [Aspir-Low] ORAL aspirin 81 MG Delayed Release Oral Tablet [Aspir-Low]Original Medicationaspirin 81 MG Delayed Release Oral Tablet [Aspir-Low] *Reorder from Hello Chair for eRx and Interaction Alerts* 06/23/19 17 Active 24 HR hydrochlorothiazide 12.5 MG / metoprolol succinate 50 MG Extended Release Oral Tablet ORAL 24 HR hydrochlorothiazide 12.5 MG / metoprolol succinate 50 MG Extended Release Oral TabletOriginal [id number] HR hydrochlorothiazide 12.5 MG / metoprolol succinate 50 MG Extended Release Oral Tablet *Reorder 06/23/19 17 Active rosuvastatin calcium 40 MG Oral Tablet [Crestor] ORAL rosuvastatin calcium 40 MG Oral Tablet [Crestor]Original Medicationrosuvastatin calcium 40 MG Oral Tablet [Crestor] *Reorder from Hello Chair for eRx and Interaction Alerts* 06/23/19 17 Active meloxicam 7.5 MG Oral Tablet [Mobic] ORAL meloxicam 7.5 MG Oral Tablet [Mobic]Original Medicationmeloxicam 7.5 MG Oral Tablet [Mobic] *Reorder from Hello Chair for eRx and Interaction Alerts* 06/23/19 17 Active Plan Of Treatment No Information Insurance Providers Payer Name Payer Address Payer Phone Subscriber Number Group Number Insured Name Patient Relationship to Insured Coverage Start Date Coverage End Date Medicare Part B [facility] [address] [place] [phone] [id number] CAMPBELL RUELAS Self - patient is the insured [place] [employer] [address] [employer] [place] [id number] CAMPBELL RUELAS Self - patient is the insured
--- OUTSIDE RECORDS SUMMARY | 2025-03-13 13:47 | XMS_ITS | Encounter Summary ---
Author Organization [facility] Address [address] [place] [address] Care Team Providers Care Director Marketing Communications Name Role Phone Unavailable Primary Care Provider Unavailabl e Encounter Details Date Type Department Care Team (Late st Contact Info) Description 02/23/2023 Lab Requisition [facility] - Pathology Lab [address] [place] [id number] Sumeet Fox MD [address] [id number] Illness, unspecified Social History [...] Report Bone Marrow Patholog y Report Case: [id number] Authorizing Provider: Sumeet Fox MD Collected: 02/22/2023 09:00 AM Ordering Location: [facility] Care Pathology Lab Received: 02/23/2023 03:41 PM [...] anemia - See description 02/23/2023 4:35 PM [facility] at 1635 CDT AP Comment Overall, the bone marrow specimen is normocellular for age with maturing trilineage hematopoiesis and no evidence of lymphoma, a high-grade myeloid neoplasm, or significant dyspoiesis. Correlation with clinical findings and relevant cytogenetic/molecular testing is required. 02/23/2023 4:35 PM [facility] Peripheral Smear Description CBC Data: WBC - 6.1, Hgb - 10.7, MCV - 101.5, MCHC - 31.1, and Platelets - 210. Leukocyte number: normal. Granulocyte morphology: normal. Lymphocyte morphology: normal. Erythrocyte number: decreased. Erythrocyte morphology: macrocytic. Anisopoikilocytosis: mild. Polychromasia: mild. Platelet number: normal. Platelet morphology: normal. 02/23/2023 4:35 PM [facility] Bone Marrow Aspirate Differential [...] Control is appropriately reactive. 02/23/2023 4:35 PM [facility] Bone Marrow Core Biopsy [...] special stain): adequate. 02/23/2023 4:35 PM CDT [facility] Flow Cytometry Summary Concurrent flow cytometry ([id number]) shows no monoclonal B-cell population or increase in blasts. 02/23/2023 4:35 PM CDT [facility] Clinical History 82 year old woman with iron and vitamin B12 deficiency anemia. 02/23/2023 4:35 PM T [facility] Materials Received Received are 20 slides and 3 blocks labeled [id number] along with a copy of the outside pathology report. The materials originate from [place] [id number]. All original materials are returned to the referring institution, along with a copy of our final report. 02/23/2023 4:35 PM CDT [facility] Pathologist Location at [facility] 02/23/2023 4:35 PM CDT [facility] Disclaimer The performance characteristics of all immunohistochemical and indirect immunofluorescence stains (if any) cited in this report were determined by the Histopathology Laboratory of [facility]. Some of these tests were developed [...] attending (teaching) pathologist. 02/23/2023 4:35 PM T [facility] Embedded Images 02/23/2023 4:35 PM CDT [facility] Pathology/Cytology BONE MARROW SPECIMEN / Unknown 02/22/2023 9:00 AM CDT 02/23/2023 3:41 PM CDT Miscellaneous samples (specimen) BONE MARROW SPECIMEN / Unknown 02/22/2023 9:00 AM CDT 02/23/2023 3:41 PM CDT us Sumeet Fox MD LAB - PATHOLOGY/CYTOLOGY ORDERAB LES Final Result [facility] [address] [place], [place] [id number] [place] [address] documented in this encounter Visit Diagnoses Diagnosis Illness, unspecified documented in this encounter
== END 2025-03-13 13:43 | disposition home or self-care (01) ==
LOC: CHSIMG 13:43
PROVIDERS: PCP Family Medicine; Visit Provider Family Medicine
DX: Z12.31 Encounter for screening mammogram for malignant neoplasm of breast (principal)
CPT/HCPCS: 77063; 77067

== ENCOUNTER 2025-03-23 11:00 | Outpatient (RCR) | payer SELFPAY | END 2025-03-24 23:59 | disposition home or self-care (01) | LOC: ANHAUDASC 11:00 | PROVIDERS: PCP Family Medicine; Visit Provider Family Medicine | DX: Z46.1 Encounter for fitting and adjustment of hearing aid (principal) | CPT/HCPCS: 99199; V5261 ==